=== PATIENT | male | born 1955 | race Caucasian/White ===

== ENCOUNTER 2017-01-09 11:15 | Outpatient (CLI) | payer MEDICAID | END 2017-01-09 11:16 | disposition home or self-care (01) | DX: R53.83 Other fatigue (principal); R32 Unspecified urinary incontinence; R33.9 Retention of urine, unspecified ==

== ENCOUNTER 2017-01-09 14:40 | Outpatient (CLI) | payer MEDICAID | END 2017-01-09 14:41 | disposition home or self-care (01) | DX: R53.83 Other fatigue (principal); G35 Multiple sclerosis; R32 Unspecified urinary incontinence; R33.9 Retention of urine, unspecified ==

== ENCOUNTER 2017-01-30 11:23 | Outpatient (CLI) | payer MEDICAID | END 2017-01-30 11:24 | disposition short-term general hospital (02) | DX: R50.9 Fever, unspecified (principal); R53.1 Weakness; R53.83 Other fatigue; R07.1 Chest pain on breathing | CPT/HCPCS: A0425; A0429 ==

== ENCOUNTER 2017-03-08 14:03 | Outpatient (CLI) | payer MEDICAID ==
--- NOTE | 2017-03-08 17:36 | Ultrasound Report ---
EXAM: RENAL ULTRASOUND EXAM DATE: 03/08/2017 03:34 PM. CLINICAL HISTORY: Urinary retention. COMPARISON: None. TECHNIQUE: Real-time scanning was performed with static images obtained. FINDINGS: Right Kidney: 12.7 x 5.1 x 5.3 cm. Normal echotexture with no stones, contour-deforming masses, or hy dronephrosis. 1 x 0.9 x 0.9 cm simple right upper renal cyst. Left Kidney: 12.7 x 6.0 x 5.4 cm. Normal echotexture with no stones, contour-deforming masses, or hyd ronephrosis. Lobular contour. Bladder: Ureter jets are not seen. The prevoid bladder volume was 303.2 cc. The postvoid bladder volu me was 59 cc. Dowd catheter is present in the bladder. Liver: Incompletely imaged. Echogenic parenchyma. IMPRESSION: 1. 1 cm simple right upper pole renal cyst. No renal mass, stones or hydronephrosis. 2. Dowd catheter in the bladder. Normal bladder. [facility] Referring Provider Line: [phone] SITE ID: [id number]
== END 2017-03-08 14:04 | disposition home or self-care (01) ==
LOC: DI 14:03
PROVIDERS: ATTEND Nurse Practitioner Family
DX: R33.9 Retention of urine, unspecified (principal); N28.1 Cyst of kidney, acquired
CPT/HCPCS: 76770

== ENCOUNTER 2017-10-11 05:02 | Outpatient (CLI) | payer MEDICAID | END 2017-10-11 05:03 | disposition critical access hospital (66) | LOC: EMS 05:02 | PROVIDERS: ATTEND Surgery | DX: R50.9 Fever, unspecified (principal); R53.1 Weakness; R41.0 Disorientation, unspecified | CPT/HCPCS: A0425; A0429 ==

== ENCOUNTER 2017-10-11 05:21 | Inpatient (IN) | payer MEDICAID ==
[2017-10-11] MEDS ORDERED: SODIUM CHLORIDE 0.9% 1,000 ML IV ONE ×2 (05:24→06:37)
--- NOTE | 2017-10-11 05:30 | ED Physician Documentation ---
PD HPI ALTERED MENTAL STATUS - Stated complaint Stated Complaint: ALOC - Chief complaint Chief Complaint: Neuro - History obtained from History obtained from: Patient, EMS - History of Present Illness Timing - onset: Today Timing - details: Gradual onset, Still present Quality / character: Less responsive, Disoriented Associated symptoms: Fever Basline status: Alert and oriented X 3, Ambulatory, Independent Similar symptoms before: Work up / diagnostics, Treatment Recently seen: Not recently seen - Additional information Additional information: patient is a 62 year old male with a history of ms, and multiple episodes of sepsis who is presenting to the emergency department for altered mental status. According to family and ems, early this morning patient was confused and couldn't walk to the bathroom. patient's was worried so she called ems. When ems arrived patient was febrile and tachycardic. Fluids were started and patient was brought to the hospital. Upon initial evaluation in the emergency department patient was tachycardic, somnolent but would open his eye to voice. Review of Systems Constitutional: reports: Fever, Chills Eyes: denies: Decreased vision Nose: denies: Congestion Throat: denies: Sore throat Cardiac: denies: Chest pain / pressure, Palpitations Respiratory: denies: Cough, Wheezing GI: denies: Nausea, Vomiting : reports: Hesitancy, Unable to Void Neurologic: reports: Generalized weakness, Confused, Altered mental status. denies: Focal weakness, Numbness Immunocompromised: denies: Immunocompromised PD PAST MEDICAL HISTORY - Past Medical History Past Medical History: Yes Cardiovascular: None Respiratory: None Neuro: Multiple sclerosis, Other Endocrine/Autoimmune: None GI: Ulcers : Incontinence HEENT: None Psych: None Musculoskeletal: None Derm: None Other Past Medical History: WHEELCHAIR bound per spouse...CAN TRANSFER HIMSELF.... - Past Surgical History Past Surgical History: Yes General: Other Ortho: Knee replacement, Shoulder arthroplasty - Present Medications Home Medications: Ambulatory Orders Medication Instructions Recorded Confirmed Gabapentin 600 mg PO TID 09/01/15 10/11/17 carBAMazepine [TEGretol] 1 tab PO BID PRN 02/09/16 10/11/17 Cyclobenzaprine HCl 1 mg PO TID 10/11/17 10/11/17 Tamsulosin HCl [Flomax] 1 mg PO DAILY 10/11/17 10/11/17 - Allergies Allergies/Adverse Reactions: Allergies Allergy/AdvReac Type Severity Reaction Status Date / Time No Known Drug Allergies Allergy Verified 10/11/17 05:27 - Social History Does the pt smoke?: No Smoking Status: Never smoker Does the pt drink ETOH?: Yes Does the pt have substance abuse?: No - Immunizations Immunizations are current?: Yes - POLST Patient has POLST: No PD ED PE NORMAL - General General: Well developed/nourished - HEENT HEENT: Atraumatic, PERRL - Neck Neck: Supple, no meningeal sign - Cardiac Cardiac: RRR, No murmur - Respiratory Respiratory: No respiratory distress - Abdomen Abdomen: Soft, Non tender, Non distended - Derm Derm: Normal color, Warm and dry, No rash - Extremities Extremities: No deformity, Normal ROM s pain, No calf tenderness / cord - Neuro Neuro: Alert and oriented X 3, No motor deficit, No sensory deficit, Normal speech Eye Opening: Spontaneous Motor: Obeys Commands Verbal: Oriented GCS Score: 15 - Psych Psych: Normal mood PD ED PE EXPANDED - General General: Other (altered) - HEENT HEENT: Dry mucous membranes - Cardiac Cardiac: Tachy - GCS Eye Opening: To Voice Motor: Obeys Commands Verbal: Confused Total: 13 Results - Vitals Vitals: Vital Signs - 24 hr 10/11/17 10/11/17 10/11/17 05:24 05:32 05:48 Temperature 37.1 C Heart Rate 117 H 117 H 111 H Respiratory 20 19 20 Rate Blood Pressure 107/84 H 115/75 111/72 O2 Saturation 97 95 97 10/11/17 10/11/17 10/11/17 06:13 06:33 06:53 Temperature Heart Rate 93 98 112 H Respiratory 15 20 18 Rate Blood Pressure 101/74 110/83 H 136/78 H O2 Saturation 96 96 94 Oxygen O2 Source Room air - Labs Labs: Laboratory Tests 10/11/17 10/11/17 10/11/17 05:25 05:25 05:55 WBC 15.8 H RBC 4.76 Hgb 14.1 Hct 41.6 L MCV 87.4 MCH 29.7 MCHC 34.0 RDW 12.7 Plt Count 267 MPV 7.0 L Neut # 12.3 H Lymph # 2.5 [place] # 0.8 Eos # 0.1 Baso # 0.1 Absolute Nucleated RBC 0.00 Nucleated RBC % 0.0 Sodium 136 Potassium 3.7 Chloride 104 Carbon Dioxide 23 Anion Gap 9.0 BUN 14 Creatinine 0.8 Estimated GFR (MDRD) 98 Glucose 147 H Lactic Acid Calcium 9.0 Total Bilirubin 0.5 AST 31 ALT 60 Alkaline Phosphatase 111 Total Protein 7.0 Albumin 3.9 Globulin 3.1 Albumin/Globulin Ratio 1.3 Lipase 19 L Urine Color Urine Clarity Urine pH Ur Specific [place] Urine Protein Urine Glucose (UA) Urine Ketones Urine Occult Blood Urine Nitrite Urine Bilirubin Urine Urobilinogen Ur Leukocyte Esterase Urine RBC Urine WBC Ur Squamous Epith Cells Urine Bacteria Ur Microscopic Review Urine Culture Comments Influenza A (Rapid) Negative Influenza B (Rapid) Negative Influenza Types A,B Ag - 10/11/17 10/11/17 06:00 06:10 WBC RBC Hgb Hct MCV MCH MCHC RDW Plt Count MPV Neut # Lymph # [place] # Eos # Baso # Absolute Nucleated RBC Nucleated RBC % Sodium Potassium Chloride Carbon Dioxide Anion Gap BUN Creatinine Estimated GFR (MDRD) Glucose Lactic Acid 1.3 Calcium Total Bilirubin AST ALT Alkaline Phosphatase Total Protein Albumin Globulin Albumin/Globulin Ratio Lipase Urine Color YELLOW Urine Clarity CLEAR Urine pH 6.0 Ur Specific [place] 1.020 Urine Protein NEGATIVE Urine Glucose (UA) 250 H Urine Ketones NEGATIVE Urine Occult Blood TRACE-INTA Urine Nitrite POSITIVE H Urine Bilirubin NEGATIVE Urine Urobilinogen 0.2 (NORMAL) Ur Leukocyte Esterase SMALL H Urine RBC 0-5 Urine WBC 11-25 H Ur Squamous Epith Cells FEW Squamous Urine Bacteria Moderate H Ur Microscopic Review INDICATED Urine Culture Comments INDICATED Influenza A (Rapid) Influenza B (Rapid) Influenza Types A,B Ag PD MEDICAL DECISION MAKING - ED course Complexity details: reviewed old records, reviewed results, re-evaluated patient , considered differential, d/w patient, d/w family ED course: patient was seen and examined at bedside. IV access was gained and labs were drawn. IV fluids were started. When patient's diagnostics came back he was found to have a leukocystos and a urinary tract infection along with his tachycardia, borderline hypotension and altered mental status. it was decided to admit the patient. The case was discussed with the hospitalist and patient was admitted for further evaluation and care. Departure - Departure Disposition: 66 [facility] DC/Xfer Clinical Impression: SIRS (systemic inflammatory response syndrome), UTI (urinary tract infection) Condition: Stable
[2017-10-11 05:55] LABS: BASOPHILS # (AUTO) 0.1 10^3/uL (0.0-0.1); BASOPHILS % (AUTO) 0.4 %; EOSINOPHILS # (AUTO) 0.1 10^3/uL (0.0-0.7); EOSINOPHILS % (AUTO) 0.6 %; HGB - HEMOGLOBIN 14.1 g/dL (14.0-18.0); LYMPHOCYTES # (AUTO) 2.5 10^3/uL (1.5-3.5); MEAN CORPUSCULAR HEMOGLOBIN 29.7 pg (27.0-31.0); MEAN CORPUSCULAR VOLUME 87.4 fL (80.0-94.0); MONOCYTES # (AUTO) 0.8 10^3/uL (0.0-1.0); NEUTROPHILS # (AUTO) 12.3 10^3/uL (1.5-6.6); PLT - PLATELET COUNT 267 10^3/uL (130-450); RED BLOOD COUNT 4.76 10^6/uL (4.70-6.10); RED CELL DISTRIBUTION WIDTH 12.7 % (12.0-15.0); WHITE BLOOD COUNT 15.8 x10^3/uL (4.8-10.8)
--- NOTE | 2017-10-11 06:03 | XRAY Preliminary Report ---
Exam: XR CHEST 1 VIEW X-RAY IMPRESSION: Stable negative single view chest. [facility] SITE ID: [id number]
--- NOTE | 2017-10-11 06:09 | XRAY Report ---
EXAM: CHEST RADIOGRAPHY EXAM DATE: 10/11/2017 05:49 AM. CLINICAL HISTORY: Fevers, altered mental status. COMPARISON: 05/17/2016. TECHNIQUE: 1 view. FINDINGS: Lungs/Pleura: No focal opacities evident. No pleural effusion. No pneumothorax. Mediastinum: Within exam limitations, the cardiomediastinal contour is normal. Other: None. IMPRESSION: Stable negative single view chest. [facility] Referring Provider Line: [phone] SITE ID: [id number]
[2017-10-11 06:14] LABS: ALBUMIN 3.9 g/dL (3.2-5.5); ALBUMIN/GLOBULIN RATIO 1.3 (1.0-2.2); BILIRUBIN,TOTAL 0.5 mg/dL (0.2-1.0); CREATININE 0.8 mg/dL (0.6-1.2)
[2017-10-11 06:19] LABS: BILIRUBIN,URINE NEGATIVE (NEGATIVE); GLUCOSE, URINE (UA) 250 mg/dL (NEGATIVE); KETONES,URINE (UA) NEGATIVE (NEGATIVE); LEUKOCYTE ESTERASE, URINE SMALL (NEGATIVE); NITRITE,URINE POSITIVE (NEGATIVE); OCCULT BLOOD,URINE TRACE-INTA (NEGATIVE); PROTEIN,URINE NEGATIVE (NEGATIVE); UROBILINOGEN,URINE 0.2 (NORMAL) E.U./dL (NORMAL)
[2017-10-11 06:22] LABS: CLARITY,URINE CLEAR (CLEAR)
[2017-10-11] MEDS ORDERED: levoFLOXacin 750 MG/150 ML 750 MG/150 ML BAG IV ONE (06:26)
[2017-10-11 06:30] LABS: BACTERIA,URINE Moderate /HPF (None Seen); RBC,URINE 0-5 /HPF (0-5); SQUAMOUS EPITHELIAL CELL,UR FEW Squamous (<= Few)
[2017-10-11] MEDS ORDERED: PROCHLORPERAZINE 10 MG/2 ML VIAL IVP PRN (07:52)
[2017-10-11] MEDS ORDERED: carBAMazepine 200 MG TABLET PO PRN (07:52)
[2017-10-11] MEDS ORDERED: PROMETHAZINE 25 MG/1 ML VIAL IM PRN (07:52)
[2017-10-11] MEDS ORDERED: ZOLPIDEM 5 MG TABLET PO PRN (07:52)
[2017-10-11] MEDS ORDERED: ACETAMINOPHEN 325 MG TABLET PO PRN (07:52)
[2017-10-11] MEDS ORDERED: oxyCODONE 5 MG TABLET PO PRN ×2 (07:52)
[2017-10-11] MEDS ORDERED: ONDANSETRON 4 MG/2 ML VIAL IVP PRN (07:52)
[2017-10-11] MEDS ORDERED: SODIUM CHLORIDE FLUSH 0.9% 10 ML SYRINGE IVP PRN (07:52)
[2017-10-11] MEDS: CEFEPIME 2 GM in SODIUM CHLORIDE 0.9% MINIBAG 100 ML IV SCH ×2 (10:10→21:04)
[2017-10-11] MEDS: POLYETHYLENE GLYCOL 3350 17 GM PACKET PO SCH (10:10)
[2017-10-11] MEDS: ENOXAPARIN 40 MG/0.4 ML SYRINGE SUBQ SCH (10:10)
[2017-10-11] MEDS: TAMSULOSIN 0.4 MG CAPSULE PO SCH ×2 (10:11→16:21)
[2017-10-11] MEDS: SODIUM CHLORIDE 0.9% 1,000 ML IV SCH ×2 (10:11→21:04)
[2017-10-11] MEDS: CYCLOBENZAPRINE 10 MG TABLET PO PRN (10:54)
[2017-10-11] MEDS: SODIUM CHLORIDE FLUSH 0.9% 10 ML SYRINGE IVP SCH ×2 (13:46→21:04)
[2017-10-11] MEDS ORDERED: GABAPENTIN 300 MG CAPSULE PO SCH (14:00)
[2017-10-11] MEDS: GABAPENTIN 300 MG CAPSULE PO SCH ×2 (15:53→21:03)
[2017-10-11] MEDS: SACCHAROMYCES BOULARDII 250 MG CAPSULE PO SCH (16:51)
--- NOTE | 2017-10-11 16:52 | HISTORY & PHYSICAL EXAMINATION ---
Chief Complaint - Chief Complaint Chief Complaint: Altered mental status History of Present Illness - Admitted From Admitted From:: Emergency department - History Obtained From Records Reviewed: Yes History obtained from: Patient and patient's Exam Limitations: Patient has MS and has significant weakness and difficulty with exam - History of Present Illness HPI Comment/Other: Patient is a 62-year-old gentleman with unfortunate past medical history of demyelinating disorder secondary to multiple sclerosis, trigeminal neuralgia, history of duodenal ulcer and history of recurrent UTIs with sepsis who presented to the emergency department with a chief complaint of altered mental status. The patient states that he was in his normal state of health until this morning when he does not remember events very well but his was kind enough to fill in. The patient's states that the patient had gotten up to go to the commode. The patient is typically wheelchair bound and able to transfer from wheelchair to commode and wheelchair to bed with minimal assistance. This morning the states that the patient could not transfer to the toilet as he was so weak. She also noted that he was becoming confused and was not making sense. Given her experience she figured that the patient was getting ill and may be infected. She then called 911. On arrival of EMS the patient was found to be febrile and tachycardic, he was quite somnolent but would open his eyes to voice. Patient denies any headaches, blurred vision, runny nose, sore throat, nasal congestion, difficulty swallowing, neck pain, chest pain, shortness of air, orthopnea, PND, increased lower extremity swelling, abdominal pain, nausea, vomiting, diarrhea, constipation, dysuria, increased urinary urgency, increased urinary frequency, joint pain, muscle aches, joint swelling, back pain, neck stiffness, any new focal neurologic deficits, recent unintentional weight loss or changes in his appetite. On presentation to the emergency department the patient was afebrile however he was tachycardic with heart rate of 117 and blood pressure was borderline low with systolic blood pressure of 107. The patient otherwise does not appear to be in any respiratory distress. The patient however was quite somnolent on presentation. He was arousable and did respond to voice. The patient's lab work revealed a leukocytosis of 15.8 and a slight hyperglycemia with a glucose of 147. The patient's urine analysis revealed positive nitrates, positive leukocyte esterase with 11-25 WBCs and moderate bacteria. The patient appear to be in early sepsis likely secondary to a urinary tract infection. The patient was given 2 L of IV fluid and IV Levaquin in the emergency department. The patient was admitted to the medical [facility] with sepsis secondary to urinary tract infection. History - Past Medical History Cardiovascular: reports: None Respiratory: reports: None Neuro: reports: Peripheral neuropathy, Multiple sclerosis, Other (Trigeminal neuralgia) Endocrine/Autoimmune: reports: None GI: reports: Ulcers : reports: Incontinence HEENT: reports: None Psych: reports: None Musculoskeletal: reports: None Derm: reports: None MRSA Hx?: No Other Past Medical History: WHEELCHAIR bound per spouse...CAN TRANSFER HIMSELF.... chronic lyme disease, dormant wallace-miranda virus - Past Surgical History General: reports: Other Ortho: reports: Shoulder arthroplasty, Other - Family & Social History Family History Comment/Other: The patient's father had BPH. Mother had congestive heart failure. Patient's brother had coronary artery disease. There is no family history of diabetes cancer or MS. Living arrangement: At home Living Situation: With spouse/s.o. Social History Notes: The patient currently lives in [place] with his . He has been to her for 26 years. They also live with the patient's [id number]. The patient has a 31-year-old daughter from a previous marriage who lives in [place]. The patient and his moved would [facility] about 2-1/ 2 years ago from [place], [place]. The moved here because the patient's condition was getting worse and the patient's [id number] was alone after her and would be able to help out with the care of the patient. At baseline the patient is able to transfer from wheelchair to commode and wheelchair to bed but is primarily wheelchair bound. The patient has never smoked, he rarely drinks alcohol and denies any illicit drug use. - POLST Patient has POLST: No POLST Status: Full Code Meds/Allgy - Home Medications Home Medications: Ambulatory Orders Medication Instructions Recorded Confirmed carBAMazepine [TEGretol] 200 mg PO BID PRN 02/09/16 10/11/17 Cyclobenzaprine HCl 10 mg PO TID PRN 10/11/17 10/11/17 Gabapentin [Gabapentin] 600 mg PO TID 10/11/17 10/11/17 Tamsulosin HCl [Flomax] 0.8 mg PO DAILY 10/11/17 10/11/17 - Allergies Allergies/Adverse Reactions: Allergies Allergy/AdvReac Type Severity Reaction Status Date / Time No Known Drug Allergies Allergy Verified 10/11/17 05:27 Review of Systems - Other Findings Other Findings: A comprehensive review of systems was performed the pertinent positives and negatives are stated above in the HPI and the remainder of the review of systems is negative. Exam - Vital Signs Vital Signs: Vital Signs x48h Temp Pulse Resp BP BP Pulse Ox 10/11/17 15:38 36.8 C 109 H 17 159/81 H 96 10/11/17 13:49 37.2 C 10/11/17 08:45 36.8 C 103 H 20 143/90 H 94 - Physical Exam General Appearance: positive: No acute distress, Alert, Other (Patient was lethargic on presentation to the ER but is improved and more alert and awake) Eyes Bilateral: positive: Normal inspection, PERRL, EOMI, No lid inflammation, Conjunctivae nml, No scleral icterus ENT: positive: ENT inspection nml, Pharynx nml, Dry mucous membranes. negative : Purulent nasal drainage, Pharyngeal erythema, Oral lesions Neck: positive: Nml inspection, Thyroid nml, No JVD, Trachea midline. negative : Thyromegaly, Lymphadenopathy (R), Lymphadenopathy (L), Carotid bruit, Tracheal deviation Respiratory: positive: Chest non-tender, No respiratory distress, Breath sounds nml. negative: Wheezes, Rales, Rhonchi Cardiovascular: positive: Regular rate & rhythm, No murmur, No gallop Peripheral Pulses: positive: 2+ Abdomen: positive: No organomegaly, Nml bowel sounds, No distention, Tenderness (Suprapubic), Other (Dowd catheter in place). negative: Guarding, Rebound, Hepatomegaly Back: positive: Nml inspection. negative: CVA tenderness (R), CVA tenderness (L ) Skin: positive: Color nml, No rash, Warm. negative: Cyanosis, Pallor Extremities: positive: Non-tender, Full ROM, Nml appearance, No pedal edema Neurologic/Psychiatric: positive: Oriented x3, CN's nml (2-12), Sensation nml, Mood/affect nml, Weakness (Patient has generalized weakness and significant left -sided weakness compared to the right.) Conclusion/Plan - Problem List (1) Sepsis Conclusion/Plan: The patient presented with altered mental status, lethargy, leukocytosis of 15.8 , tachycardia and had fever at home. The patient was found to have positive UA and likely has sepsis secondary to UTI. The patient's mental status was significantly improved with IV fluids and antibiotics in the emergency department but he still needed hospitalization for treatment of sepsis and UTI. Plan: Patient will be placed on IV cefepime secondary to previous cultures growing Pseudomonas Follow-up urine and blood cultures IV fluids Dowd catheter inserted given patient's incontinence Monitor closely (2) UTI (urinary tract infection) Conclusion/Plan: Patient has positive UA with leukocytosis and altered mental status. Patient appeared septic on presentation. The patient has suprapubic tenderness. Patient does not have any CVA tenderness. Plan: Patient be placed on IV cefepime after review of previous microbiology We will await urine culture and blood cultures to de-escalate antibiotics IV fluids Patient had Dowd catheter placed secondary to urinary incontinence (3) Hyperglycemia Conclusion/Plan: Patient has hyperglycemia on presentation with a blood glucose of 147. This could be from sepsis and acute infection. Patient does not have history of diabetes We will check hemoglobin A1c and monitor glucose closely (4) Trigeminal neuralgia Conclusion/Plan: Patient has history of trigeminal neuralgia and is on carbamazepine at home. He is also on gabapentin and cyclobenzaprine. We will continue patient's home medications. (5) Prophylactic use of low molecular weight heparin for venous thromboembolism Conclusion/Plan: Patient be placed on Lovenox for DVT prophylaxis - Lab Results Lab results reviewed: Yes Fish Bones: 10/11/17 05:25 10/11/17 05:25 Other Lab Results: Laboratory Results WBC 15.8 x10^3/uL (4.8-10.8) H 10/11/17 05:25 RBC 4.76 10^6/uL (4.70-6.10) 10/11/17 05:25 Hgb 14.1 g/dL (14.0-18.0) 10/11/17 05:25 Hct 41.6 % (42.0-52.0) L 10/11/17 05:25 MCV 87.4 fL (80.0-94.0) 10/11/17 05:25 MCH 29.7 pg (27.0-31.0) 10/11/17 05:25 MCHC 34.0 g/dL (32.0-36.0) 10/11/17 05:25 RDW 12.7 % (12.0-15.0) 10/11/17 05:25 Plt Count 267 10^3/uL (130-450) 10/11/17 05:25 MPV 7.0 fL (7.4-11.4) L 10/11/17 05:25 Neut # 12.3 10^3/uL (1.5-6.6) H 10/11/17 05:25 Lymph # 2.5 10^3/uL (1.5-3.5) 10/11/17 05:25 [place] # 0.8 10^3/uL (0.0-1.0) 10/11/17 05:25 Eos # 0.1 10^3/uL (0.0-0.7) 10/11/17 05:25 Baso # 0.1 10^3/uL (0.0-0.1) 10/11/17 05:25 Absolute Nucleated RBC 0.00 x10^3/uL 10/11/17 05:25 Nucleated RBC % 0.0 /100WBC 10/11/17 05:25 Sodium 136 mmol/L (135-145) 10/11/17 05:25 Potassium 3.7 mmol/L (3.5-5.0) 10/11/17 05:25 Chloride 104 mmol/L (101-111) 10/11/17 05:25 Carbon Dioxide 23 mmol/L (21-32) 10/11/17 05:25 Anion Gap 9.0 (6-13) 10/11/17 05:25 BUN 14 mg/dL (6-20) 10/11/17 05:25 Creatinine 0.8 mg/dL (0.6-1.2) 10/11/17 05:25 Estimated GFR (MDRD) 98 (>89) 10/11/17 05:25 Glucose 147 mg/dL (70-100) H 10/11/17 05:25 Lactic Acid 1.3 mmol/L (0.5-2.2) 10/11/17 06:10 Calcium 9.0 mg/dL (8.5-10.3) 10/11/17 05:25 Total Bilirubin 0.5 mg/dL (0.2-1.0) 10/11/17 05:25 AST 31 IU/L (10-42) 10/11/17 05:25 ALT 60 IU/L (10-60) 10/11/17 05:25 Alkaline Phosphatase 111 IU/L (42-121) 10/11/17 05:25 Total Protein 7.0 g/dL (6.7-8.2) 10/11/17 05:25 Albumin 3.9 g/dL (3.2-5.5) 10/11/17 05:25 Globulin 3.1 g/dL (2.1-4.2) 10/11/17 05:25 Albumin/Globulin Ratio 1.3 (1.0-2.2) 10/11/17 05:25 Lipase 19 U/L (22-51) L 10/11/17 05:25 Urine Color YELLOW 10/11/17 06:00 Urine Clarity CLEAR (CLEAR) 10/11/17 06:00 Urine pH 6.0 PH (5.0-7.5) 10/11/17 06:00 Ur Specific [place] 1.020 (1.002-1.030) 10/11/17 06:00 Urine Protein NEGATIVE mg/dL (NEGATIVE) 10/11/17 06:00 Urine Glucose (UA) 250 mg/dL (NEGATIVE) H 10/11/17 06:00 Urine Ketones NEGATIVE mg/dL (NEGATIVE) 10/11/17 06:00 Urine Occult Blood TRACE-INTA (NEGATIVE) 10/11/17 06:00 Urine Nitrite POSITIVE (NEGATIVE) H 10/11/17 06:00 Urine Bilirubin NEGATIVE (NEGATIVE) 10/11/17 06:00 Urine Urobilinogen 0.2 (NORMAL) E.U./dL (NORMAL) 10/11/17 06:00 Ur Leukocyte Esterase SMALL (NEGATIVE) H 10/11/17 06:00 Urine RBC 0-5 /HPF (0-5) 10/11/17 06:00 Urine WBC 11-25 /HPF (0-3) H 10/11/17 06:00 Ur Squamous Epith Cells FEW Squamous (<= Few) 10/11/17 06:00 Urine Bacteria Moderate /HPF (None Seen) H 10/11/17 06:00 Ur Microscopic Review INDICATED 10/11/17 06:00 Urine Culture Comments INDICATED 10/11/17 06:00 Influenza A (Rapid) Negative (Negative) 10/11/17 05:55 Influenza B (Rapid) Negative (Negative) 10/11/17 05:55 Influenza Types A,B Ag - 10/11/17 05:55 - Diagnostic Imaging Results Diagnostic Imaging Results: positive: Final report reviewed Diagnostic Imaging Results Comments: Chest x-ray Impression: Stable negative single view chest Core Measures - Anticipated LOS I expect patient to be DC'd or transferred within 96 hours.: Yes - DVT/VTE - Prophylaxis VTE/DVT Prophylaxis med ordered at admit?: Yes
[2017-10-12] MEDS: GABAPENTIN 300 MG CAPSULE PO SCH ×4 (03:40→22:07)
[2017-10-12] MEDS: CYCLOBENZAPRINE 10 MG TABLET PO PRN (03:40)
[2017-10-12] MEDS: SODIUM CHLORIDE 0.9% 1,000 ML IV SCH ×3 (06:10→19:09)
[2017-10-12] MEDS: PANTOPRAZOLE 40 MG TABLET PO SCH (06:11)
[2017-10-12] MEDS: SODIUM CHLORIDE FLUSH 0.9% 10 ML SYRINGE IVP SCH ×3 (06:11→22:09)
[2017-10-12 06:52] LABS: BASOPHILS # (AUTO) 0.1 10^3/uL (0.0-0.1); BASOPHILS % (AUTO) 0.5 %; EOSINOPHILS # (AUTO) 0.2 10^3/uL (0.0-0.7); EOSINOPHILS % (AUTO) 1.3 %; LYMPHOCYTES # (AUTO) 2.2 10^3/uL (1.5-3.5); LYMPHOCYTES % (AUTO) 18.7 %; MEAN CORPUSCULAR HEMOGLOBIN 29.8 pg (27.0-31.0); MEAN CORPUSCULAR HGB CONC 33.8 g/dL (32.0-36.0); MEAN CORPUSCULAR VOLUME 88.1 fL (80.0-94.0); MEAN PLATELET VOLUME 6.9 fL (7.4-11.4); MONOCYTES # (AUTO) 0.7 10^3/uL (0.0-1.0); MONOCYTES % (AUTO) 5.8 %; NEUTROPHILS # (AUTO) 8.6 10^3/uL (1.5-6.6); NEUTROPHILS % (AUTO) 73.7 %; PLT - PLATELET COUNT 234 10^3/uL (130-450); RED BLOOD COUNT 4.71 10^6/uL (4.70-6.10); RED CELL DISTRIBUTION WIDTH 12.7 % (12.0-15.0); WHITE BLOOD COUNT 11.6 x10^3/uL (4.8-10.8)
[2017-10-12 07:06] LABS: ALBUMIN 3.6 g/dL (3.2-5.5); ALBUMIN/GLOBULIN RATIO 1.2 (1.0-2.2); BILIRUBIN,TOTAL 0.6 mg/dL (0.2-1.0); CALCIUM 8.5 mg/dL (8.5-10.3); CREATININE 0.7 mg/dL (0.6-1.2); TOTAL PROTEIN 6.5 g/dL (6.7-8.2)
[2017-10-12 07:25] LABS: HB2 TOTAL 15.3 g/dL; HEMOGLOBIN A1C 0.77 g/dL; HEMOGLOBIN A1C % 6.8 % (4.6-6.2)
[2017-10-12] MEDS: SACCHAROMYCES BOULARDII 250 MG CAPSULE PO SCH ×2 (08:37→17:33)
[2017-10-12] MEDS: CEFEPIME 2 GM in SODIUM CHLORIDE 0.9% MINIBAG 100 ML IV SCH ×2 (08:37→22:08)
[2017-10-12] MEDS: POLYETHYLENE GLYCOL 3350 17 GM PACKET PO SCH (08:37)
[2017-10-12] MEDS: ENOXAPARIN 40 MG/0.4 ML SYRINGE SUBQ SCH (08:37)
--- NOTE | 2017-10-12 16:54 | PROVIDER PROGRESS NOTE ---
Assessment/Plan - Problem List (1) Sepsis Assessment/Plan: The patient presented with altered mental status, lethargy, leukocytosis of 15.8 , tachycardia and had fever at home. The patient was found to have positive UA and likely has sepsis secondary to UTI. The patient's mental status was significantly improved with IV fluids and antibiotics in the emergency department but he still needed hospitalization for treatment of sepsis and UTI. IV cefepime day 2 Patient is improved Mental status back to baseline and WBC improved Temp up to 37.7 last night and still tachycardic Patient still very weak Will order PT Continue IVfs and abx Awaiting blood and urine cx (2) UTI (urinary tract infection) Conclusion/Plan: Patient has positive UA with leukocytosis and altered mental status. Patient appeared septic on presentation. The patient has suprapubic tenderness. Patient does not have any CVA tenderness. Plan: Cefepime day 2 Improving COntinue valerio while hospitalized Awaiting urine cx (3) Hyperglycemia Conclusion/Plan: Patient has hyperglycemia on presentation with a blood glucose of 147. This could be from sepsis and acute infection. Patient does not have history of diabetes HbA1C elevated at 6.8 BG controlled at 132 today Will hold off on starting insulin Patient needs outpatient follow up (4) Trigeminal neuralgia Conclusion/Plan: Patient has history of trigeminal neuralgia and is on carbamazepine at home. He is also on gabapentin and cyclobenzaprine. Stable (5) Prophylactic use of low molecular weight heparin for venous thromboembolism Conclusion/Plan: Patient be placed on Lovenox for DVT prophylaxis (6) Constipation Conclusion/Plan: patient has been constipated for 4 days Continue bowel regimen Will consider abdominal xray if it continues - Current Meds Current Meds: Current Medications Generic Name Dose Route Start Last Admin Trade Name Freq PRN Reason Stop Dose Admin Cyclobenzaprine HCl 10 mg 10/11/17 11:00 10/12/17 03:40 Flexeril PO 10 mg TID PRN Administration SPASMS Enoxaparin Sodium 40 mg 10/11/17 09:00 10/12/17 08:37 Lovenox SUBQ 40 mg DAILY GAGAN Administration Gabapentin 600 mg 10/11/17 16:00 10/12/17 14:09 Neurontin PO Not Given 0300,1100,2100 GAGAN Cefepime HCl 2 gm/ Sodium 100 mls @ 200 mls/hr 10/11/17 09:00 10/12/17 14:09 Chloride IV Infused BID GAGAN Infusion Sodium Chloride 1,000 mls @ 100 mls/hr 10/11/17 08:00 10/12/17 11:00 Normal Saline 0.9% IV 100 mls/hr .Q10H GAGAN Administration Pantoprazole Sodium 40 mg 10/12/17 07:00 10/12/17 06:11 Protonix PO 40 mg QDAC GAGAN Administration Polyethylene Glycol 17 gm 10/11/17 09:00 10/12/17 08:37 Miralax PO 17 gm DAILY GAGAN Administration Saccharomyces Boulardii 250 mg 10/11/17 17:00 10/12/17 08:37 Florastor PO 250 mg BIDWM GAGAN Administration Sodium Chloride 10 ml 10/11/17 14:00 10/12/17 14:09 Normal Saline Flush 0.9% IVP Not Given Q8HR GAGAN Tamsulosin HCl 0.4 mg 10/11/17 09:00 10/11/17 16:21 Flomax PO Not Given 1700 GAGAN - Lab Result Lab results reviewed: Yes Fish Bone Diagrams: 10/12/17 06:30 10/12/17 06:30 - Diagnostic Imaging Results Diagnostic Imaging Results: Final report reviewed - Additional Planning Condition/Complexity: Guarded My Orders: My Active Orders 10/11/17 16:00 Gabapentin [Neurontin] 600 mg PO 0300,1100,2100 10/12/17 Evaluate and Treat PT [PT] Routine Consult/Specialty: PT Plan Discussed with:: Patient Time Spent: 31-60 minutes Subjective - Subjective Patient Reports: Abdominal Pain (Worsening abdominal pain with constipation), Constipation (For 4 days), Other (No nausea, vomiting or fever. Feels very weak) Nursing Reports: Constipation Objective Vital Signs: Vital Signs - 24 hr 10/12/17 10/12/17 10/12/17 00:23 03:37 07:55 Temperature 37.7 C H 37.4 C 36.4 C L Heart Rate [ 109 H 105 H Brachial] Respiratory 20 16 Rate Blood Pressure 146/82 H 147/87 H [Right Brachial artery] O2 Saturation 92 92 10/12/17 15:32 Temperature 37.4 C Heart Rate [ 100 Brachial] Respiratory 17 Rate Blood Pressure 145/74 H [Right Brachial artery] O2 Saturation 94 Oxygen O2 Source Room air I&O (Last 24 Hrs): Intake and Output Totals x24h 10/10/17 10/11/17 10/12/17 23:59 23:59 23:59 Intake Total 3480 1870.000 Output Total 3025 3100 Balance 455 -1230.000 General: Alert, Oriented x3, Cooperative, Mild distress (Abdominal discomfort) HEENT: Atraumatic, PERRLA, EOMI, Other (Dry mucus membranes) Neck: Supple, No JVD, No thyromegaly, +2 carotid pulse wo bruit, No LAD Lymphatic: no adenopathy Neuro: Alert, Non Focal, CN 2-12 Grossly Intact, Oriented Times 3 Cardiovascular: Normal S1, Normal S2, No murmurs, Other (Tachycardic) Respiratory: Chest non-tender, No respiratory distress, Breath sounds nml Abdomen: Soft, Other (Lower abdominal tenderness) Extremities: No clubbing, No cyanosis, No edema, Normal pulses Skin: No rashes, No breakdown - Results Results: Laboratory Results WBC 11.6 x10^3/uL (4.8-10.8) H 10/12/17 06:30 RBC 4.71 10^6/uL (4.70-6.10) 10/12/17 06:30 Hgb 14.0 g/dL (14.0-18.0) 10/12/17 06:30 Hct 41.5 % (42.0-52.0) L 10/12/17 06:30 MCV 88.1 fL (80.0-94.0) 10/12/17 06:30 MCH 29.8 pg (27.0-31.0) 10/12/17 06:30 MCHC 33.8 g/dL (32.0-36.0) 10/12/17 06:30 RDW 12.7 % (12.0-15.0) 10/12/17 06:30 Plt Count 234 10^3/uL (130-450) 10/12/17 06:30 MPV 6.9 fL (7.4-11.4) L 10/12/17 06:30 Neut # 8.6 10^3/uL (1.5-6.6) H 10/12/17 06:30 Lymph # 2.2 10^3/uL (1.5-3.5) 10/12/17 06:30 [place] # 0.7 10^3/uL (0.0-1.0) 10/12/17 06:30 Eos # 0.2 10^3/uL (0.0-0.7) 10/12/17 06:30 Baso # 0.1 10^3/uL (0.0-0.1) 10/12/17 06:30 Absolute Nucleated RBC 0.00 x10^3/uL 10/12/17 06:30 Nucleated RBC % 0.0 /100WBC 10/12/17 06:30 Sodium 138 mmol/L (135-145) 10/12/17 06:30 Potassium 4.0 mmol/L (3.5-5.0) 10/12/17 06:30 Chloride 108 mmol/L (101-111) 10/12/17 06:30 Carbon Dioxide 25 mmol/L (21-32) 10/12/17 06:30 Anion Gap 5.0 (6-13) L 10/12/17 06:30 BUN 9 mg/dL (6-20) 10/12/17 06:30 Creatinine 0.7 mg/dL (0.6-1.2) 10/12/17 06:30 Estimated GFR (MDRD) 114 (>89) 10/12/17 06:30 Glucose 132 mg/dL (70-100) H 10/12/17 06:30 Glycated Hemoglobin 6.8 % (4.6-6.2) H 10/12/17 06:30 Estim Average Glucose 148 (70-100) H 10/12/17 06:30 Lactic Acid 1.3 mmol/L (0.5-2.2) 10/11/17 06:10 Calcium 8.5 mg/dL (8.5-10.3) 10/12/17 06:30 Total Bilirubin 0.6 mg/dL (0.2-1.0) 10/12/17 06:30 AST 22 IU/L (10-42) 10/12/17 06:30 ALT 48 IU/L (10-60) 10/12/17 06:30 Alkaline Phosphatase 92 IU/L (42-121) 10/12/17 06:30 Total Protein 6.5 g/dL (6.7-8.2) L 10/12/17 06:30 Albumin 3.6 g/dL (3.2-5.5) 10/12/17 06:30 Globulin 2.9 g/dL (2.1-4.2) 10/12/17 06:30 Albumin/Globulin Ratio 1.2 (1.0-2.2) 10/12/17 06:30 Lipase 19 U/L (22-51) L 10/11/17 05:25 Urine Color YELLOW 10/11/17 06:00 Urine Clarity CLEAR (CLEAR) 10/11/17 06:00 Urine pH 6.0 PH (5.0-7.5) 10/11/17 06:00 Ur Specific [place] 1.020 (1.002-1.030) 10/11/17 06:00 Urine Protein NEGATIVE mg/dL (NEGATIVE) 10/11/17 06:00 Urine Glucose (UA) 250 mg/dL (NEGATIVE) H 10/11/17 06:00 Urine Ketones NEGATIVE mg/dL (NEGATIVE) 10/11/17 06:00 Urine Occult Blood TRACE-INTA (NEGATIVE) 10/11/17 06:00 Urine Nitrite POSITIVE (NEGATIVE) H 10/11/17 06:00 Urine Bilirubin NEGATIVE (NEGATIVE) 10/11/17 06:00 Urine Urobilinogen 0.2 (NORMAL) E.U./dL (NORMAL) 10/11/17 06:00 Ur Leukocyte Esterase SMALL (NEGATIVE) H 10/11/17 06:00 Urine RBC 0-5 /HPF (0-5) 10/11/17 06:00 Urine WBC 11-25 /HPF (0-3) H 10/11/17 06:00 Ur Squamous Epith Cells FEW Squamous (<= Few) 10/11/17 06:00 Urine Bacteria Moderate /HPF (None Seen) H 10/11/17 06:00 Ur Microscopic Review INDICATED 10/11/17 06:00 Urine Culture Comments INDICATED 10/11/17 06:00 Influenza A (Rapid) Negative (Negative) 10/11/17 05:55 Influenza B (Rapid) Negative (Negative) 10/11/17 05:55 Influenza Types A,B Ag - 10/11/17 05:55 - Procedures Procedures: Procedures EXCISION OF STOMACH, ENDO, DIAGN (09/01/15) INSPECTION OF LOWER INTESTINAL TRACT, ENDO (09/01/15) INSPECTION OF UPPER INTESTINAL TRACT, ENDO (10/16/15) TRANSFUSE NONAUT RED BLOOD CELLS IN PERIPH VEIN, PERC (09/01/15)
[2017-10-12] MEDS: TAMSULOSIN 0.4 MG CAPSULE PO SCH (17:33)
[2017-10-13] MEDS: GABAPENTIN 300 MG CAPSULE PO SCH ×2 (03:22→11:18)
[2017-10-13] MEDS: CYCLOBENZAPRINE 10 MG TABLET PO PRN (03:23)
[2017-10-13 05:07] LABS: BASOPHILS # (AUTO) 0.1 10^3/uL (0.0-0.1); BASOPHILS % (AUTO) 0.8 %; EOSINOPHILS # (AUTO) 0.4 10^3/uL (0.0-0.7); EOSINOPHILS % (AUTO) 4.2 %; HGB - HEMOGLOBIN 13.3 g/dL (14.0-18.0); LYMPHOCYTES # (AUTO) 2.2 10^3/uL (1.5-3.5); LYMPHOCYTES % (AUTO) 23.8 %; MEAN CORPUSCULAR HEMOGLOBIN 29.8 pg (27.0-31.0); MEAN CORPUSCULAR HGB CONC 33.4 g/dL (32.0-36.0); MEAN CORPUSCULAR VOLUME 89.1 fL (80.0-94.0); MEAN PLATELET VOLUME 7.1 fL (7.4-11.4); MONOCYTES # (AUTO) 0.6 10^3/uL (0.0-1.0); MONOCYTES % (AUTO) 6.1 %; NEUTROPHILS % (AUTO) 65.1 %; PLT - PLATELET COUNT 238 10^3/uL (130-450); RED BLOOD COUNT 4.46 10^6/uL (4.70-6.10); RED CELL DISTRIBUTION WIDTH 12.5 % (12.0-15.0); WHITE BLOOD COUNT 9.2 x10^3/uL (4.8-10.8)
[2017-10-13] MEDS: SODIUM CHLORIDE FLUSH 0.9% 10 ML SYRINGE IVP SCH ×2 (05:18→14:35)
[2017-10-13] MEDS: SODIUM CHLORIDE 0.9% 1,000 ML IV SCH (05:22)
[2017-10-13 05:29] LABS: ALBUMIN 3.4 g/dL (3.2-5.5); ALBUMIN/GLOBULIN RATIO 1.1 (1.0-2.2); BILIRUBIN,TOTAL 0.6 mg/dL (0.2-1.0); CALCIUM 8.7 mg/dL (8.5-10.3); CREATININE 0.7 mg/dL (0.6-1.2); TOTAL PROTEIN 6.6 g/dL (6.7-8.2)
[2017-10-13] MEDS: PANTOPRAZOLE 40 MG TABLET PO SCH (06:11)
[2017-10-13] MEDS: CEFEPIME 2 GM in SODIUM CHLORIDE 0.9% MINIBAG 100 ML IV SCH (08:19)
[2017-10-13] MEDS: POLYETHYLENE GLYCOL 3350 17 GM PACKET PO SCH (08:19)
[2017-10-13] MEDS: SACCHAROMYCES BOULARDII 250 MG CAPSULE PO SCH (08:19)
[2017-10-13] MEDS: ENOXAPARIN 40 MG/0.4 ML SYRINGE SUBQ SCH (08:19)
[2017-10-13 09:08] VITALS: BP 148/75
--- NOTE | 2017-10-13 11:34 | Discharge Plan ---
Discharge Plan Disposition: Home Health Service Condition: Stable Prescriptions: Ciprofloxacin HCl [Cipro] 500 mg PO BID #10 tablet Diet: Regular Activity Restrictions: Activity as Tolerated Shower Restrictions: No Driving Restrictions: No Assistance Devices: Wheelchair Weight Bearing: Full Weight Additional Instructions or Follow Up instructions: You presented to the emergency department with sepsis secondary to urinary tract infection. When you presented you were quite lethargic and confused but you are now back to your normal mental status. You are also quite weak and have been improving slowly. After being assessed by physical therapy it appears that you do need home health physical therapy and you have been set up for this. You will need another 5 days of oral antibiotics to complete your course for your infection. You should continue to improve and should follow-up with your primary care physician within the next few weeks. We placed a Dowd catheter in the emergency department and given your urinary incontinence and neurogenic bladder you have requested that the Dowd catheter remain in. You have had a chronic Dowd catheter in the past and you and your know how to care for it. Please ensure that it is changed frequently. Follow-Up Care: Home Health - PT No Smoking: If you smoke, Please STOP! Call for help. Follow-up with: Colleen Luna ARNP [Primary Care Provider] -
--- NOTE | 2017-10-13 11:58 | DISCHARGE SUMMARY ---
Discharge Summary Admit Date: 10/11/17 Discharge Date: 10/13/17 Discharging Provider: Jonnathan Jones MD Primary Care Provider: Colleen WOODY Code Status: Attempt Resuscitation Condition at Discharge: Stable Discharge Disposition: 06 Home Health Service - DIAGNOSES Admission Diagnoses: 1. Sepsis 2. Urinary tract infection 3. Hyperglycemia 4. Trigeminal neuralgia 5. DVT prophylaxis Discharge Diagnoses with Status of Each Condition: 1. Sepsis: Resolved 2. Urinary tract infection: Improving 3. Hyperglycemia: Stable 4. Trigeminal neuralgia: Stable 5. Constipation: Resolved - HPI History of Present Illness: Patient is a 62-year-old gentleman with unfortunate past medical history of demyelinating disorder secondary to multiple sclerosis, trigeminal neuralgia, history of duodenal ulcer and history of recurrent UTIs with sepsis who presented to the emergency department with a chief complaint of altered mental status. The patient states that he was in his normal state of health until this morning when he does not remember events very well but his was kind enough to fill in. The patient's states that the patient had gotten up to go to the commode. The patient is typically wheelchair bound and able to transfer from wheelchair to commode and wheelchair to bed with minimal assistance. This morning the states that the patient could not transfer to the toilet as he was so weak. She also noted that he was becoming confused and was not making sense. Given her experience she figured that the patient was getting ill and may be infected. She then called 911. On arrival of EMS the patient was found to be febrile and tachycardic, he was quite somnolent but would open his eyes to voice. Patient denies any headaches, blurred vision, runny nose, sore throat, nasal congestion, difficulty swallowing, neck pain, chest pain, shortness of air, orthopnea, PND, increased lower extremity swelling, abdominal pain, nausea, vomiting, diarrhea, constipation, dysuria, increased urinary urgency, increased urinary frequency, joint pain, muscle aches, joint swelling, back pain, neck stiffness, any new focal neurologic deficits, recent unintentional weight loss or changes in his appetite. On presentation to the emergency department the patient was afebrile however he was tachycardic with heart rate of 117 and blood pressure was borderline low with systolic blood pressure of 107. The patient otherwise does not appear to be in any respiratory distress. The patient however was quite somnolent on presentation. He was arousable and did respond to voice. The patient's lab work revealed a leukocytosis of 15.8 and a slight hyperglycemia with a glucose of 147. The patient's urine analysis revealed positive nitrates, positive leukocyte esterase with 11-25 WBCs and moderate bacteria. The patient appear to be in early sepsis likely secondary to a urinary tract infection. The patient was given 2 L of IV fluid and IV Levaquin in the emergency department. The patient was admitted to the medical [facility] with sepsis secondary to urinary tract infection. - HOSPITAL COURSE Hospital Course: On admission the patient was placed on IV antibiotics with cefepime to cover Pseudomonas as patient has grown Pseudomonas in the past from his urine and he was given IV fluids. The patient had significant improvement just over the first 24 hours as he had resolution of his altered mental status and lethargy. The patient still remained very weak for the next several days he did work with physical therapy and they recommended home PT. We did order home health for the patient to get PT at home. The patient's leukocytosis completely resolved. The patient was afebrile for over 48 hours. The patient's vital signs stabilized. The patient's urine culture appeared to be contaminated therefore the patient was placed on oral Cipro at discharge as all his previous urine cultures have been susceptible to Cipro. The patient will complete 5 additional days of Cipro to complete his course of antibiotics for his urinary tract infection and sepsis. The patient was also found to be hyperglycemic on presentation and had an A1c of 6.8. The patient was not started on metformin or any other diabetic medication he will need to follow-up with his primary care physician as an outpatient and will likely initially be placed on diet and lifestyle changes before repeating a hemoglobin A1c. The patient was stable at the time of discharge we did leave his Dowd catheter in as the patient requested. The patient has had a chronic Dowd catheter in the past. The patient will follow up with his primary care physician in the next few weeks. - ALLERGIES Allergies/Adverse Reactions: Allergies Allergy/AdvReac Type Severity Reaction Status Date / Time No Known Drug Allergies Allergy Verified 10/11/17 05:27 - MEDICATIONS Home Medications: Ambulatory Orders Medication Instructions Recorded Confirmed carBAMazepine [TEGretol] 200 mg PO BID PRN 02/09/16 10/11/17 Cyclobenzaprine HCl 10 mg PO TID PRN 10/11/17 10/11/17 Gabapentin 600 mg PO TID 10/11/17 10/11/17 Tamsulosin HCl [Flomax] 0.8 mg PO DAILY 10/11/17 10/11/17 Ciprofloxacin HCl [Cipro] 500 mg PO BID #10 tablet 10/13/17 - PHYSICAL EXAM AT DISCHARGE General Appearance: positive: No acute distress, Alert Eyes Bilateral: positive: Normal inspection, PERRL, EOMI. negative: No lid inflammation, Conjunctivae nml, No scleral icterus ENT: positive: ENT inspection nml, Pharynx nml, No signs of dehydration. negative: Purulent nasal drainage, Pharyngeal erythema, Oral lesions Neck: positive: Nml inspection, Thyroid nml, No JVD, Trachea midline. negative : Thyromegaly, Lymphadenopathy (R), Lymphadenopathy (L), Carotid bruit, Tracheal deviation Respiratory: positive: Chest non-tender, No respiratory distress, Breath sounds nml. negative: Wheezes, Rales, Rhonchi Cardiovascular: positive: Regular rate & rhythm, No murmur, No gallop Peripheral Pulses: positive: 2+ Abdomen: positive: Non-tender, No organomegaly, Nml bowel sounds, No distention. negative: Guarding, Rebound, Hepatomegaly Back: positive: Nml inspection. negative: CVA tenderness (R), CVA tenderness (L ) Skin: positive: Color nml, No rash, Warm. negative: Cyanosis, Diaphoresis, Pallor Extremities: positive: Non-tender, Full ROM, Nml appearance, No pedal edema Neurologic/Psychiatric: positive: Oriented x3, CN's nml (2-12), Weakness ( Bilateral lower extremities) - LABS Result Diagrams: 10/13/17 04:53 10/13/17 04:53 Other Lab Results: Laboratory Results WBC 9.2 x10^3/uL (4.8-10.8) 10/13/17 04:53 RBC 4.46 10^6/uL (4.70-6.10) L 10/13/17 04:53 Hgb 13.3 g/dL (14.0-18.0) L 10/13/17 04:53 Hct 39.8 % (42.0-52.0) L 10/13/17 04:53 MCV 89.1 fL (80.0-94.0) 10/13/17 04:53 MCH 29.8 pg (27.0-31.0) 10/13/17 04:53 MCHC 33.4 g/dL (32.0-36.0) 10/13/17 04:53 RDW 12.5 % (12.0-15.0) 10/13/17 04:53 Plt Count 238 10^3/uL (130-450) 10/13/17 04:53 MPV 7.1 fL (7.4-11.4) L 10/13/17 04:53 Neut # 6.0 10^3/uL (1.5-6.6) 10/13/17 04:53 Lymph # 2.2 10^3/uL (1.5-3.5) 10/13/17 04:53 [place] # 0.6 10^3/uL (0.0-1.0) 10/13/17 04:53 Eos # 0.4 10^3/uL (0.0-0.7) 10/13/17 04:53 Baso # 0.1 10^3/uL (0.0-0.1) 10/13/17 04:53 Absolute Nucleated RBC 0.00 x10^3/uL 10/13/17 04:53 Nucleated RBC % 0.0 /100WBC 10/13/17 04:53 Sodium 139 mmol/L (135-145) 10/13/17 04:53 Potassium 4.0 mmol/L (3.5-5.0) 10/13/17 04:53 Chloride 107 mmol/L (101-111) 10/13/17 04:53 Carbon Dioxide 26 mmol/L (21-32) 10/13/17 04:53 Anion Gap 6.0 (6-13) 10/13/17 04:53 BUN 14 mg/dL (6-20) 10/13/17 04:53 Creatinine 0.7 mg/dL (0.6-1.2) 10/13/17 04:53 Estimated GFR (MDRD) 114 (>89) 10/13/17 04:53 Glucose 142 mg/dL (70-100) H 10/13/17 04:53 Glycated Hemoglobin 6.8 % (4.6-6.2) H 10/12/17 06:30 Estim Average Glucose 148 (70-100) H 10/12/17 06:30 Lactic Acid 1.3 mmol/L (0.5-2.2) 10/11/17 06:10 Calcium 8.7 mg/dL (8.5-10.3) 10/13/17 04:53 Total Bilirubin 0.6 mg/dL (0.2-1.0) 10/13/17 04:53 AST 20 IU/L (10-42) 10/13/17 04:53 ALT 38 IU/L (10-60) 10/13/17 04:53 Alkaline Phosphatase 86 IU/L (42-121) 10/13/17 04:53 Total Protein 6.6 g/dL (6.7-8.2) L 10/13/17 04:53 Albumin 3.4 g/dL (3.2-5.5) 10/13/17 04:53 Globulin 3.2 g/dL (2.1-4.2) 10/13/17 04:53 Albumin/Globulin Ratio 1.1 (1.0-2.2) 10/13/17 04:53 Lipase 19 U/L (22-51) L 10/11/17 05:25 Urine Color YELLOW 10/11/17 06:00 Urine Clarity CLEAR (CLEAR) 10/11/17 06:00 Urine pH 6.0 PH (5.0-7.5) 10/11/17 06:00 Ur Specific [place] 1.020 (1.002-1.030) 10/11/17 06:00 Urine Protein NEGATIVE mg/dL (NEGATIVE) 10/11/17 06:00 Urine Glucose (UA) 250 mg/dL (NEGATIVE) H 10/11/17 06:00 Urine Ketones NEGATIVE mg/dL (NEGATIVE) 10/11/17 06:00 Urine Occult Blood TRACE-INTA (NEGATIVE) 10/11/17 06:00 Urine Nitrite POSITIVE (NEGATIVE) H 10/11/17 06:00 Urine Bilirubin NEGATIVE (NEGATIVE) 10/11/17 06:00 Urine Urobilinogen 0.2 (NORMAL) E.U./dL (NORMAL) 10/11/17 06:00 Ur Leukocyte Esterase SMALL (NEGATIVE) H 10/11/17 06:00 Urine RBC 0-5 /HPF (0-5) 10/11/17 06:00 Urine WBC 11-25 /HPF (0-3) H 10/11/17 06:00 Ur Squamous Epith Cells FEW Squamous (<= Few) 10/11/17 06:00 Urine Bacteria Moderate /HPF (None Seen) H 10/11/17 06:00 Ur Microscopic Review INDICATED 10/11/17 06:00 Urine Culture Comments INDICATED 10/11/17 06:00 Influenza A (Rapid) Negative (Negative) 10/11/17 05:55 Influenza B (Rapid) Negative (Negative) 10/11/17 05:55 Influenza Types A,B Ag - 10/11/17 05:55 - DIAGNOSTIC IMAGING Diagnostic Imaging Results: Final report reviewed Diagnostic Imaging Results Comments: Chest x-ray Impression: Stable negative single view chest - FOLLOW UP Follow Up: Patient was discharged home on oral antibiotics with ciprofloxacin for an additional 5 days. He was also discharged with a Dowd catheter and will follow up with his primary care physician regarding his elevated blood glucose and chronic medical problems. - TIME SPENT Time Spent in Discharge (Minutes): 45
== END 2017-10-13 14:59 | disposition home health service (06) | DRG 871 ==
LOC: EDUNIT# → EDBD → SUPCPDRO 05:21 → ED 05:21 → MS2 07:53
PROVIDERS: ADMIT Internal Medicine; ATTEND Internal Medicine
DX: A41.9 Sepsis, unspecified organism (principal); G93.41 Metabolic encephalopathy; N39.0 Urinary tract infection, site not specified; R65.20 Severe sepsis without septic shock; G35 Multiple sclerosis; I95.9 Hypotension, unspecified; G50.0 Trigeminal neuralgia; K59.00 Constipation, unspecified; G62.9 Polyneuropathy, unspecified; N31.9 Neuromuscular dysfunction of bladder, unspecified; N39.498 Other specified urinary incontinence; Z87.11 Personal history of peptic ulcer disease; Z99.3 Dependence on wheelchair; Z86.19 Personal history of other infectious and parasitic diseases
CPT/HCPCS: 36415; 51702; 71045; 80053; 81001; 81003; 83036; 83605; 83690; 85025; 87040; 87086; 87275; 87276; 96361; 96365; 99284; 99285

== ENCOUNTER 2017-11-10 16:59 | Outpatient (CLI) | payer MEDICAID | END 2017-11-10 17:00 | disposition critical access hospital (66) | LOC: EMS 16:59 | PROVIDERS: ATTEND Surgery | DX: R68.84 Jaw pain (principal); R13.10 Dysphagia, unspecified | CPT/HCPCS: A0425; A0429 ==

== ENCOUNTER 2017-11-10 17:39 | Emergency (ER) | payer MEDICAID ==
[2017-11-10] MEDS ORDERED: HYDROmorphone 1 MG/ML SYRINGE IVP STA ×2 (19:16→21:21)
[2017-11-10] MEDS ORDERED: SODIUM CHLORIDE 0.9% 1,000 ML IV ONE ×3 (19:16→21:59)
[2017-11-10] MEDS ORDERED: KETOROLAC 60 MG/2 ML VIAL IVP STA (19:16)
--- NOTE | 2017-11-10 19:16 | ED Physician Documentation ---
PD HPI HEENT - Stated complaint Stated Complaint: JAW PX - Chief complaint Chief Complaint: Heent - History obtained from History obtained from: Patient - History of Present Illness Timing - onset: How many days ago (few) Timing - duration: Days (3) Timing - details: Abrupt onset, Still present Location: Other (right jaw and TMJ area - with history of trigeminal neuralgia episodes int he past, and these symptoms being c/w with that. He has had significant enough pain that he has been unable to eat as any temperature or movement to the mouth triggers a pain episode. He has been prescribed Tegretol by his neurologist to take when he gets an episode. He gets them infrequently enough that he does not take it regularly. His last episode was about a year ago. He did start the Tegretol 3 days ago is not having much improvement in the pain as yet. He has not taken other pain medicines. He has been unable to eat or drink for the last few days. He does have history of MS and is wheelchair bound and does his own transfers and he has been unable to do that because of the general weakness. He has an indwelling Valerio and his urine output has been very dark and minimal consistent with dehydration.) Improves: No: Medication (has not had improvement with Tegretol as yet.) Worsens: Swalllowing, Temperatures, Everything Associated symptoms: Unable to swallow (due to pain elicited.). No: Fever, Congestion, Facial swelling, Headache Similar symptoms before: Diagnosis (trigeminal neuralgia, dehydration, MS exac.) Recently seen: Not recently seen Review of Systems Constitutional: reports: Fatigue. denies: Fever, Chills, Myalgias Nose: denies: Rhinorrhea / runny nose, Congestion Throat: reports: Other (right facial pain in sharp lancinating jabs.). denies: Sore throat Cardiac: denies: Chest pain / pressure Respiratory: denies: Cough GI: denies: Abdominal Pain, Nausea, Vomiting, Diarrhea : reports: Other (much less urine output than usual with dark concentrated urine.) Skin: denies: Rash PD PAST MEDICAL HISTORY - Past Medical History Cardiovascular: None Respiratory: None Neuro: Peripheral neuropathy, Multiple sclerosis, Other Endocrine/Autoimmune: None GI: Ulcers : Incontinence HEENT: None Psych: None Musculoskeletal: None Derm: None - Past Surgical History Past Surgical History: Yes General: Other Ortho: Shoulder arthroplasty, Other - Present Medications Home Medications: Ambulatory Orders Medication Instructions Recorded Confirmed carBAMazepine [TEGretol] 200 mg PO BID PRN 02/09/16 10/11/17 Cyclobenzaprine HCl 10 mg PO TID PRN 10/11/17 10/11/17 Gabapentin 600 mg PO TID 10/11/17 10/11/17 Tamsulosin HCl [Flomax] 0.8 mg PO DAILY 10/11/17 10/11/17 Ciprofloxacin HCl [Cipro] 500 mg PO BID #10 tablet 10/13/17 Dexamethasone [Decadron] 4 mg PO DAILY #5 tablet 11/11/17 Ondansetron Odt [Zofran] 4 mg TL Q6H PRN #15 tablet 11/11/17 Oxycodone HCl/Acetaminophen 1 each PO Q6H PRN #20 tablet 11/11/17 [Percocet 5-325 mg Tablet] - Allergies Allergies/Adverse Reactions: Allergies Allergy/AdvReac Type Severity Reaction Status Date / Time No Known Drug Allergies Allergy Verified 10/11/17 05:27 - Social History Does the pt smoke?: No Smoking Status: Never smoker Does the pt drink ETOH?: Yes Does the pt have substance abuse?: No - Immunizations Immunizations are current?: Yes - POLST Patient has POLST: No POLST Status: Full Code PD ED PE NORMAL - Vitals Vital signs reviewed: Yes - General General: Alert and oriented X 3, Well developed/nourished, Other (appears in pain with sharp jolts of it right jaw. ) - HEENT HEENT: Ears normal, Pharynx benign - Neck Neck: Supple, no meningeal sign, No adenopathy, No JVD - Cardiac Cardiac: RRR, No murmur - Respiratory Respiratory: Clear bilaterally - Abdomen Abdomen: Soft, Non tender - Male Male : Other (valerio in place with only small amount of very dark urine out in bag. ) - Back Back: No CVA TTP - Derm Derm: Normal color, Warm and dry - Extremities Extremities: No edema - Neuro Neuro: Alert and oriented X 3, Other (weakness of legs, c/w his paralysis from MS. ) Eye Opening: Spontaneous Motor: Obeys Commands Verbal: Oriented GCS Score: 15 - Psych Psych: Normal mood Results - Vitals Vitals: Vital Signs - 24 hr 11/10/17 11/10/17 17:44 20:54 Temperature 36.8 C Heart Rate 91 87 Respiratory 17 18 Rate Blood Pressure 158/97 H 155/104 H O2 Saturation 95 97 Oxygen O2 Source Room air - Labs Labs: Laboratory Tests 11/10/17 11/10/17 11/10/17 20:08 20:08 20:46 WBC 8.5 RBC 5.43 Hgb 16.0 Hct 47.1 MCV 86.8 MCH 29.5 MCHC 34.0 RDW 12.8 Plt Count 282 MPV 7.3 L Neut # 5.3 Lymph # 2.5 [place] # 0.4 Eos # 0.1 Baso # 0.1 Absolute Nucleated RBC 0.00 Nucleated RBC % 0.0 ESR 10 Sodium 139 Potassium 3.5 Chloride 105 Carbon Dioxide 22 Anion Gap 12.0 BUN 14 Creatinine 0.8 Estimated GFR (MDRD) 98 Glucose 84 Calcium 8.6 Total Bilirubin 0.8 AST 30 ALT 50 Alkaline Phosphatase 104 Total Protein 6.7 Albumin 3.9 Globulin 2.8 Albumin/Globulin Ratio 1.4 Lipase 15 L Urine Color Urine Clarity Urine pH Ur Specific [place] Urine Protein Urine Glucose (UA) Urine Ketones Urine Occult Blood Urine Nitrite Urine Bilirubin Urine Urobilinogen Ur Leukocyte Esterase Urine RBC Urine WBC Ur Squamous Epith Cells Urine Bacteria Urine Mucus Ur Microscopic Review Urine Culture Comments 11/10/17 20:55 WBC RBC Hgb Hct MCV MCH MCHC RDW Plt Count MPV Neut # Lymph # [place] # Eos # Baso # Absolute Nucleated RBC Nucleated RBC % ESR Sodium Potassium Chloride Carbon Dioxide Anion Gap BUN Creatinine Estimated GFR (MDRD) Glucose Calcium Total Bilirubin AST ALT Alkaline Phosphatase Total Protein Albumin Globulin Albumin/Globulin Ratio Lipase Urine Color YELLOW Urine Clarity HAZY Urine pH 6.0 Ur Specific [place] >=1.030 H Urine Protein TRACE Urine Glucose (UA) NEGATIVE Urine Ketones 40 H Urine Occult Blood NEGATIVE Urine Nitrite NEGATIVE Urine Bilirubin NEGATIVE Urine Urobilinogen 0.2 (NORMAL) Ur Leukocyte Esterase SMALL H Urine RBC 0-5 Urine WBC >25 H Ur Squamous Epith Cells NONE SEEN Urine Bacteria Moderate H Urine Mucus Moderate Strands Ur Microscopic Review INDICATED Urine Culture Comments INDICATED PD MEDICAL DECISION MAKING - ED course Complexity details: reviewed results, re-evaluated patient (improved urine output with several liters fluid IV, and less pain with IV pain meds, as well as anti-inflammatories. Still having some jabs of pain but less severe and less often. He is able to take sips of fluids. ), considered differential, d/w patient, d/w advanced manufacturing consultant ([place] with Hospitalist, without real definite admission criteria, but concern of his MS and general weakness and unable to self-transfer, and pain control. Hospitalist talked with patient/family and came up with acceptable outpatient course of treatment. ) Departure - Departure Disposition: 01 Home, Self Care Clinical Impression: Dehydration, General weakness, Trigeminal neuralgia of right side of face, Severe pain Condition: Stable Record reviewed to determine appropriate education?: Yes Prescriptions: Dexamethasone [Decadron] 4 mg PO DAILY #5 tablet Ondansetron Odt [Zofran] 4 mg TL Q6H PRN #15 tablet PRN Reason: Nausea / Vomiting Oxycodone HCl/Acetaminophen [Percocet 5-325 mg Tablet] 1 each PO Q6H PRN #20 tablet PRN Reason: Pain Comments: Continue your current medications. Increase the Tegretol dose as discussed with him. While that is becoming more effective, use Tylenol or Percocet if needed for pain. Also you use Decadron daily for 5 more days to try to decrease inflammation of the nerve. Follow-up with your primary care if not improving over the next couple of days. Small frequent fluids and food as regular.
[2017-11-10] MEDS ORDERED: DEXAMETHASONE 10 MG/ML VIAL IVP STA (19:18)
[2017-11-10 20:30] LABS: BASOPHILS # (AUTO) 0.1 10^3/uL (0.0-0.1); BASOPHILS % (AUTO) 0.6 %; EOSINOPHILS # (AUTO) 0.1 10^3/uL (0.0-0.7); EOSINOPHILS % (AUTO) 1.5 %; LYMPHOCYTES # (AUTO) 2.5 10^3/uL (1.5-3.5); LYMPHOCYTES % (AUTO) 29.7 %; MEAN CORPUSCULAR HEMOGLOBIN 29.5 pg (27.0-31.0); MEAN CORPUSCULAR VOLUME 86.8 fL (80.0-94.0); MEAN PLATELET VOLUME 7.3 fL (7.4-11.4); MONOCYTES # (AUTO) 0.4 10^3/uL (0.0-1.0); MONOCYTES % (AUTO) 5.3 %; NEUTROPHILS # (AUTO) 5.3 10^3/uL (1.5-6.6); NEUTROPHILS % (AUTO) 62.9 %; PLT - PLATELET COUNT 282 10^3/uL (130-450); RED BLOOD COUNT 5.43 10^6/uL (4.70-6.10); RED CELL DISTRIBUTION WIDTH 12.8 % (12.0-15.0); WHITE BLOOD COUNT 8.5 x10^3/uL (4.8-10.8)
[2017-11-10 21:03] LABS: ALBUMIN 3.9 g/dL (3.2-5.5); ALBUMIN/GLOBULIN RATIO 1.4 (1.0-2.2); BILIRUBIN,TOTAL 0.8 mg/dL (0.2-1.0); CALCIUM 8.6 mg/dL (8.5-10.3); CREATININE 0.8 mg/dL (0.6-1.2); TOTAL PROTEIN 6.7 g/dL (6.7-8.2)
[2017-11-10 21:07] LABS: BILIRUBIN,URINE NEGATIVE (NEGATIVE); GLUCOSE, URINE (UA) NEGATIVE (NEGATIVE); KETONES,URINE (UA) 40 mg/dL (NEGATIVE); LEUKOCYTE ESTERASE, URINE SMALL (NEGATIVE); NITRITE,URINE NEGATIVE (NEGATIVE); OCCULT BLOOD,URINE NEGATIVE (NEGATIVE); PROTEIN,URINE TRACE mg/dL (NEGATIVE); UROBILINOGEN,URINE 0.2 (NORMAL) E.U./dL (NORMAL)
[2017-11-10 21:15] LABS: CLARITY,URINE HAZY (CLEAR)
[2017-11-10 21:29] LABS: BACTERIA,URINE Moderate /HPF (None Seen); MUCUS,URINE Moderate Strands; RBC,URINE 0-5 /HPF (0-5); SQUAMOUS EPITHELIAL CELL,UR NONE SEEN (<= Few)
[2017-11-11] MEDS ORDERED: oxyCODONE/ACET 5/325 Prepack 4 PO STA (00:06)
[2017-11-11 00:27] VITALS: BP 121/68
== END 2017-11-11 00:20 | disposition home or self-care (01) ==
LOC: EDUNIT# → ED 17:39 → SUPCPDRO 17:39 → ED 11-11 00:20
DX: E86.0 Dehydration (principal); G50.0 Trigeminal neuralgia; R53.1 Weakness; G89.29 Other chronic pain; G35 Multiple sclerosis; Z99.3 Dependence on wheelchair; G62.9 Polyneuropathy, unspecified; Z87.11 Personal history of peptic ulcer disease
CPT/HCPCS: 36415; 80053; 80156; 81001; 83690; 85025; 85651; 87086; 96361; 96374; 96376; 99284; J1170; 81003

== ENCOUNTER 2017-11-11 00:32 | Outpatient (CLI) | payer MEDICAID | END 2017-11-11 00:33 | disposition home or self-care (01) | LOC: EMS 00:32 | PROVIDERS: ATTEND Surgery | DX: G82.20 Paraplegia, unspecified (principal) | CPT/HCPCS: A0425; A0428 ==

== ENCOUNTER 2017-11-21 16:47 | Observation (INO) | payer MEDICAID ==
[2017-11-21] MEDS ORDERED: SODIUM CHLORIDE 0.9% 2,000 ML IV ONE (17:16)
--- NOTE | 2017-11-21 18:17 | ED Physician Documentation ---
History of Present Illness - Stated complaint Stated Complaint: DEHYDRATED - Chief complaint Chief Complaint: General - History obtained from History obtained from: Patient, Family - History of Present Illness Timing: How many weeks ago (2) Pain level max: 9 Pain level now: 6 Improved by: nothing Worsened by: nothing - Additonal information Additional information: Patient is a 62-year-old gentleman who presents to the emergency department with severe trigeminal neuralgia for the past 3 weeks. He has been unable to eat or drink anything secondary to the pain for the past week. Was supposed to have surgery at [facility] today for this, but was canceled due to insurance reasons. He also has MS and normally can get around in a wheelchair, currently is too weak to stand. Review of Systems Ten Systems: 10 systems reviewed and negative Constitutional: denies: Fever, Chills Ears: denies: Ear pain, Reviewed and negative Nose: denies: Rhinorrhea / runny nose Throat: denies: Sore throat Cardiac: denies: Chest pain / pressure Respiratory: denies: Dyspnea, Cough GI: denies: Abdominal Pain, Diarrhea : denies: Dysuria Skin: denies: Rash Musculoskeletal: denies: Neck pain, Back pain Neurologic: denies: Headache PD PAST MEDICAL HISTORY - Past Medical History Cardiovascular: None Respiratory: None Neuro: Peripheral neuropathy, Multiple sclerosis, Other Endocrine/Autoimmune: None GI: Ulcers : Incontinence HEENT: None Psych: None Musculoskeletal: None Derm: None - Past Surgical History Past Surgical History: Yes General: Other Ortho: Shoulder arthroplasty, Other - Present Medications Home Medications: Ambulatory Orders Medication Instructions Recorded Confirmed Cyclobenzaprine HCl 10 mg PO TID PRN 10/11/17 11/21/17 Gabapentin 300 mg PO TID PRN 10/11/17 11/21/17 Oxycodone HCl/Acetaminophen 1 each PO Q6H PRN #20 tablet 11/11/17 11/21/17 [Percocet 5-325 mg Tablet] Tamsulosin [Flomax] 0.4 mg PO DAILY 11/21/17 11/21/17 carBAMazepine [Carbamazepine] 200 mg PO 0300,0900,1500,2100 11/21/17 11/21/17 - Allergies Allergies/Adverse Reactions: Allergies Allergy/AdvReac Type Severity Reaction Status Date / Time No Known Drug Allergies Allergy Verified 10/11/17 05:27 - Social History Does the pt smoke?: No Smoking Status: Never smoker Does the pt drink ETOH?: Yes Does the pt have substance abuse?: No - Immunizations Immunizations are current?: Yes - POLST Patient has POLST: No POLST Status: Full Code PD ED PE NORMAL - Vitals Vital signs reviewed: Yes - General General: Alert and oriented X 3, Other (appears tired) - HEENT HEENT: PERRL, Other (dry lips, furrowed tongue) - Neck Neck: Supple, no meningeal sign - Cardiac Cardiac: RRR, Strong equal pulses - Respiratory Respiratory: No respiratory distress, Clear bilaterally - Abdomen Abdomen: Soft, Non tender, Non distended - Back Back: No CVA TTP - Derm Derm: Warm and dry, No rash - Extremities Extremities: No calf tenderness / cord - Neuro Neuro: Alert and oriented X 3 - Psych Psych: Normal mood, Normal affect Results - Vitals Vitals: Vital Signs - 24 hr 11/21/17 17:03 Heart Rate 95 Respiratory 16 Rate Blood Pressure 151/95 H O2 Saturation 96 Oxygen O2 Source Room air - Labs Labs: Laboratory Tests 11/21/17 11/21/17 18:10 18:29 WBC 7.8 RBC 5.74 Hgb 16.6 Hct 49.7 MCV 86.6 MCH 28.9 MCHC 33.4 RDW 13.1 Plt Count 369 MPV 7.7 Neut # 5.1 Lymph # 2.2 [place] # 0.5 Eos # 0.0 Baso # 0.0 Absolute Nucleated RBC 0.01 Nucleated RBC % 0.1 Sodium 135 Potassium 3.6 Chloride 100 L Carbon Dioxide 20 L Anion Gap 15.0 H BUN 19 Creatinine 0.7 Estimated GFR (MDRD) 114 Glucose 103 H Calcium 9.4 Phosphorus 2.7 Magnesium 2.0 Total Bilirubin 1.5 H AST 31 ALT 43 Alkaline Phosphatase 132 H Total Protein 7.8 Albumin 4.5 Globulin 3.3 Albumin/Globulin Ratio 1.4 Lipase 17 L PD MEDICAL DECISION MAKING - ED course Complexity details: reviewed old records, reviewed results, re-evaluated patient , considered differential, d/w patient, d/w family, d/w document management consultant ED course: Patient is a 62-year-old male with severe MS who also has severe trigeminal neuralgia. He has been on large doses of Tegretol without relief. His also been on pain medication. He is now to the point that he is unable to eat or drink anything secondary to the facial pain and spasms it causes. Even placing a straw in his mouth causes spasming of the right side of the face. His surgery was canceled today, his surgeon is out of the office for the next week and will likely be at least 2 weeks before he can have surgery performed. As he cannot tolerate anything by mouth and has no other form of getting liquids or nutrition in him, I think it is best if we rehydrate him, place him in observation for a PICC line and to set up TPN for home. He lives at home with his family who does a very good job caring for him. Discussed the case with Dr. Lepe, hospitalist who accepts. Also discussed with anesthesia, Danyel Hart who will place the PICC line in the morning. This document was made in part using voice recognition software. While efforts are made to proofread this document, sound alike and grammatical errors may occur. Departure - Departure Disposition: ED Place in Observation Clinical Impression: Dehydration, Trigeminal neuralgia, Multiple sclerosis Malnutrition Qualifiers: Malnutrition type: unspecified type Qualified Code(s): E46 - Unspecified protein-calorie malnutrition Condition: Stable Discharge Date/Time: 11/21/17 19:58
[2017-11-21 18:32] LABS: BASOPHILS % (AUTO) 0.6 %; EOSINOPHILS % (AUTO) 0.6 %; HGB - HEMOGLOBIN 16.6 g/dL (14.0-18.0); LYMPHOCYTES # (AUTO) 2.2 10^3/uL (1.5-3.5); LYMPHOCYTES % (AUTO) 28.5 %; MEAN CORPUSCULAR HEMOGLOBIN 28.9 pg (27.0-31.0); MEAN CORPUSCULAR HGB CONC 33.4 g/dL (32.0-36.0); MEAN CORPUSCULAR VOLUME 86.6 fL (80.0-94.0); MEAN PLATELET VOLUME 7.7 fL (7.4-11.4); MONOCYTES # (AUTO) 0.5 10^3/uL (0.0-1.0); MONOCYTES % (AUTO) 5.8 %; NEUTROPHILS # (AUTO) 5.1 10^3/uL (1.5-6.6); NEUTROPHILS % (AUTO) 64.5 %; PLT - PLATELET COUNT 369 10^3/uL (130-450); RED BLOOD COUNT 5.74 10^6/uL (4.70-6.10); RED CELL DISTRIBUTION WIDTH 13.1 % (12.0-15.0); WHITE BLOOD COUNT 7.8 x10^3/uL (4.8-10.8)
[2017-11-21 18:43] LABS: ALBUMIN 4.5 g/dL (3.2-5.5); ALBUMIN/GLOBULIN RATIO 1.4 (1.0-2.2); BILIRUBIN,TOTAL 1.5 mg/dL (0.2-1.0); CALCIUM 9.4 mg/dL (8.5-10.3); CREATININE 0.7 mg/dL (0.6-1.2); PHOSPHORUS 2.7 mg/dL (2.5-4.6); TOTAL PROTEIN 7.8 g/dL (6.7-8.2)
[2017-11-21] MEDS ORDERED: SODIUM CHLORIDE FLUSH 0.9% 10 ML SYRINGE IVP PRN (18:55)
[2017-11-21] MEDS ORDERED: GABAPENTIN 300 MG CAPSULE PO PRN (19:02)
[2017-11-21] MEDS ORDERED: CYCLOBENZAPRINE 10 MG TABLET PO PRN (19:02)
--- NOTE | 2017-11-21 19:22 | HISTORY & PHYSICAL EXAMINATION ---
Chief Complaint - Chief Complaint Chief Complaint: Trigeminal neuralgia pain which has caused malnutrition History of Present Illness - Admitted From Admitted From:: home - History Obtained From History obtained from: patient - History of Present Illness HPI Comment/Other: Mr. Asher Bradshaw is a very pleasant 62-year-old male who has had long history of multiple sclerosis with associated trigeminal neuralgia. The patient was scheduled to have an ablation of the trigeminal nerve this evening today, however due to a problem with his insurance his surgery was canceled. He has had a very minimal amount of p.o. intake over the last 2 weeks and now will have to wait at least another 2 weeks before he can have surgery. We will admit him to observation, have a PICC line placed, and sent him home on TPN and pain medicine until he can have his surgery. History - Past Medical History Cardiovascular: reports: None Respiratory: reports: None Neuro: reports: Peripheral neuropathy, Multiple sclerosis, Other (Trigeminal neuralgia) Endocrine/Autoimmune: reports: None GI: reports: Ulcers : reports: Incontinence HEENT: reports: None Psych: reports: None Musculoskeletal: reports: None Derm: reports: None MRSA Hx?: No - Past Surgical History General: reports: Other (Inguinal hernia repair) Ortho: reports: Shoulder arthroplasty, Other - Family & Social History Social History Notes: The patient currently lives in [place] with his . He has been to her for 26 years. They also live with the patient's [id number]. The patient has a 31-year-old daughter from a previous marriage who lives in [place]. The patient and his moved would be [place] about 2-1/ 2 years ago from [place], [place]. The moved here because the patient's condition was getting worse and the patient's [id number] was alone after her and would be able to help out with the care of the patient. At baseline the patient is able to transfer from wheelchair to commode and wheelchair to bed but is primarily wheelchair bound. The patient has never smoked, he rarely drinks alcohol and denies any illicit drug use. - POLST Patient has POLST: No POLST Status: Full Code Meds/Allgy - Home Medications Home Medications: Ambulatory Orders Medication Instructions Recorded Confirmed Cyclobenzaprine HCl 10 mg PO TID PRN 10/11/17 11/21/17 Gabapentin 300 mg PO TID PRN 10/11/17 11/21/17 Oxycodone HCl/Acetaminophen 1 each PO Q6H PRN #20 tablet 11/11/17 11/21/17 [Percocet 5-325 mg Tablet] Tamsulosin [Flomax] 0.4 mg PO DAILY 11/21/17 11/21/17 carBAMazepine [Carbamazepine] 200 mg PO 0300,0900,1500,2100 11/21/17 11/21/17 - Allergies Allergies/Adverse Reactions: Allergies Allergy/AdvReac Type Severity Reaction Status Date / Time No Known Drug Allergies Allergy Verified 10/11/17 05:27 Review of Systems - Constitutional Constitutional: reports: Weakness, Weight loss. denies: Chills, Malaise - Eyes Eyes: denies: Pain, Irritation, Blurred vision - Ears, Nose & Throat Ears, Nose & Throat: denies: Ear pain, Hearing loss, Hearing aids, Tinnitus, Vertigo, Nasal pain - Cardiovascular Cariovascular: denies: Irregular heart rate, Palpitations, Chest pain, Edema - Respiratory Respiratory: denies: Cough, Sputum production, Wheezing, Snoring, Orthopnea - Gastrointestinal Gastrointestinal: denies: Abdominal pain, Abdominal distention, Constipation, Diarrhea, Change in bowel habits, Rectal bleeding - Genitourinary Genitourinary: denies: Dysuria, Frequency, Urgency, Hematuria - Musculoskeletal Musculoskeletal: reports: Stiffness, Limited range of motion, Muscle weakness - Integumentary Integumentary: denies: Rash, Pruritis, Lesions, Dryness - Neurological Neurological: reports: Focal weakness, Other (History of multiple sclerosis, trigeminal neuralgia, and Lyme disease). denies: General weakness - Psychiatric Psychiatric: denies: Depression, Anxiety, Suicidal, Hallucinations - Endocrine Endocrine: denies: Polyuria, Polydypsia, Polyphagia - Hematologic/Lymphatic Hematologic/Lymphatic: denies: Anemia, Bruising, Lymphadenopathy - All Other Systems All Other Systems: reports: Reviewed and negative Exam - Vital Signs Reviewed Vital Signs: Yes Vital Signs: Vital Signs x48h Temp Pulse Resp BP Pulse Ox 11/21/17 18:58 36.2 C L 66 16 143/91 H 98 11/21/17 17:03 95 16 151/95 H 96 - Physical Exam General Appearance: positive: No acute distress, Alert Eyes Bilateral: positive: Normal inspection, PERRL, EOMI, No lid inflammation, Conjunctivae nml, No scleral icterus ENT: positive: ENT inspection nml, Pharynx nml, No signs of dehydration Neck: positive: Nml inspection, Thyroid nml, No JVD, Trachea midline. negative : Thyromegaly Respiratory: positive: Chest non-tender, No respiratory distress, Breath sounds nml. negative: Wheezes, Rales, Rhonchi Cardiovascular: positive: Regular rate & rhythm, No murmur, No gallop Peripheral Pulses: positive: 1+ Abdomen: positive: Non-tender, No organomegaly, Nml bowel sounds, No distention. negative: Guarding, Rebound Back: positive: Nml inspection. negative: CVA tenderness (R), CVA tenderness (L ) Skin: positive: Color nml, No rash, Warm, Dry. negative: Cyanosis Extremities: positive: Non-tender. negative: Pedal edema, Joint swelling Neurologic/Psychiatric: positive: Oriented x3, CN's nml (2-12), Motor nml, Sensation nml, Mood/affect nml Conclusion/Plan - Problem List (1) Trigeminal neuralgia Conclusion/Plan: Uncontrolled, despite high doses of carbamazepine. The patient was scheduled to have a nerve ablation earlier today however due to a glitch in the insurance and has been been postponed for 2 weeks. Meanwhile, the patient has not had more than a few sips or bites for the last 2 weeks and he has at least another 2 weeks until he can have surgery so the plan is to bring him in to observation , have a PICC line placed, and sent him home on TPN for the 2 weeks prior to his surgery. I will start him on methadone as I believe this will be very effective for pain management with a minimal amount of sedation. (2) Multiple sclerosis Conclusion/Plan: Long-term, continue home care. (3) Lyme disease Conclusion/Plan: Nonacute, continue present care. - Lab Results Lab results reviewed: Yes Yuan Bones: 11/21/17 18:29 11/21/17 18:10 Core Measures - Anticipated LOS I expect patient to be DC'd or transferred within 96 hours.: Yes - DVT/VTE - Prophylaxis VTE/DVT Device ordered at admit?: Yes
[2017-11-21] MEDS ORDERED: METHADONE 5 MG TABLET PO PRN (19:49)
[2017-11-21] MEDS ORDERED: TEMAZEPAM 7.5 MG CAPSULE PO PRN (19:55)
[2017-11-21] MEDS: SODIUM CHLORIDE FLUSH 0.9% 10 ML SYRINGE IVP SCH ×2 (20:20→23:35)
[2017-11-21] MEDS: D5.45NS W/20 MEQ KCL 1,000 ML IV SCH (20:20)
[2017-11-21] MEDS: carBAMazepine 200 MG TABLET PO ONE (21:26)
[2017-11-21] MEDS: HYDROmorphone 1 MG/ML SYRINGE IVP PRN (23:35)
[2017-11-22] MEDS ORDERED: diazePAM INJ 5 MG/ML SYRINGE IVP SCH (00:07)
[2017-11-22] MEDS: SODIUM CHLORIDE FLUSH 0.9% 10 ML SYRINGE IVP SCH ×4 (00:19→18:30)
[2017-11-22] MEDS: HYDROmorphone 1 MG/ML SYRINGE IVP PRN ×11 (03:07→18:30)
[2017-11-22] MEDS ORDERED: carBAMazepine 200 MG TABLET PO ONE (03:27)
[2017-11-22] MEDS: carBAMazepine 200 MG TABLET PO ONE (03:35)
[2017-11-22] MEDS: diazePAM INJ 5 MG/ML SYRINGE IVP PRN ×4 (03:38→15:36)
[2017-11-22] MEDS: D5.45NS W/20 MEQ KCL 1,000 ML IV SCH (05:52)
[2017-11-22] MEDS ORDERED: oxyCOD/ACETAMIN 5 MG/325 MG TABLET PO PRN (07:46)
[2017-11-22] MEDS: carBAMazepine 200 MG TABLET PO SCH ×3 (09:00→18:40)
[2017-11-22] MEDS ORDERED: POLYETHYLENE GLYCOL 3350 17 GM PACKET PO SCH (09:00)
[2017-11-22] MEDS ORDERED: TAMSULOSIN 0.4 MG CAPSULE PO SCH (09:00)
--- NOTE | 2017-11-22 10:33 | PROCEDURE REPORT ---
Hospitalist Procedure Note - Procedure Note Procedure Note: ANESTHESIA PROCEDURE NOTE: call to place PICC in 2212, indications are malnutrition, MS, Trigeminal Neuralgia, and need for TPN. Pt in 07/15 pain during consult for PICC. Pain intense and constant at V3 branch of R Trigeminal nerve. Facial nerve block offered to patient after speaking with internal medicine as well as patient. Clean procedure. 3cc 0.5% Marcaine plain injected at R intraoral medial side of ramus distal to 3rd molar. Patient tolerated procedure without complication. Pt states minimal relief after 5 mins. Block repeated slightly medial to previous injection. Pt tolerated procedure without complications. 5 mins post block, pt states pain is better.
--- NOTE | 2017-11-22 10:43 | XRAY Report ---
EXAM: CHEST RADIOGRAPHY EXAM DATE: 11/22/2017 10:38 AM. CLINICAL HISTORY: New PICC@ R basilic v. COMPARISON: None. TECHNIQUE: 1 view. FINDINGS: Lungs/Pleura: No focal opacities evident. No pleural effusion. No pneumothorax. Mediastinum: Within exam limitations, the cardiomediastinal contour is normal. Other: Right PICC terminates at the upper SVC region. IMPRESSION: Right PICC terminates at the upper SVC region. [facility] Referring Provider Line: [phone] SITE ID: [id number]
--- NOTE | 2017-11-22 10:43 | XRAY Preliminary Report ---
Exam: XR CHEST FOR LINE PLACEMENT IMPRESSION: Right PICC terminates at the upper SVC region. [facility] SITE ID: [id number]
[2017-11-22] MEDS ORDERED: HYDROmorphone 1 MG/ML SYRINGE IVP STA (11:07)
--- NOTE | 2017-11-22 11:47 | Discharge Plan ---
Discharge Plan Disposition: 01 Home, Self Care Condition: Stable Prescriptions: Methadone 5 mg PO TID PRN #42 tablet PRN Reason: Pain Diet: Soft Activity Restrictions: Activity as Tolerated Shower Restrictions: No Driving Restrictions: No Instruction Topics: Methadone tablets No Smoking: If you smoke, Please STOP! Call for help. Follow-up with: Colleen Luna ARNP [Primary Care Provider] -
[2017-11-22 15:46] VITALS: BP 157/99
[2017-11-22] MEDS ORDERED: fentaNYL 100 MCG PATCH TOP SCH (16:00)
--- NOTE | 2017-11-22 18:42 | DISCHARGE SUMMARY ---
Discharge Summary Admit Date: 11/21/17 Discharge Date: 11/22/17 Discharging Provider: Megan Nelson DO Primary Care Provider: Colleen Luna Code Status: Attempt Resuscitation Condition at Discharge: Stable Discharge Disposition: 01 Home, Self Care - DIAGNOSES Admission Diagnoses: 1. Trigeminal neuralgia 2. Multiple sclerosis 3. Lyme disease Discharge Diagnoses with Status of Each Condition: 1. Trigeminal neuralgia - Patient is exquisitely sensitive and unfortunately we have not been able to help him very much during this brief hospitalization. He has received many doses of IV Dilaudid as well as oral methadone and carbamazepine. Anesthesiology placed a PICC line earlier today and the plan is to discharge the patient home on TPN this evening which he will receive until he is able to have a rhizotomy of his trigeminal nerve. It is my hope that the methadone will help him more once the levels become therapeutic. 2. Multiple sclerosis - Continue home care 3. Lyme disease - Continue home care - HPI History of Present Illness: Mr. Asher Washington is a very pleasant 62-year-old male who was admitted to [facility] after coming to the emergency department with intractable pain. The patient has a history of multiple sclerosis and trigeminal neuralgia for which he takes carbamazepine. Unfortunately the trigeminal neuralgia has been worsening and the pain management has been insufficient and the patient was scheduled to have a rhizotomy yesterday but unfortunately this was canceled due to insurance issues. The patient's surgeon is now on vacation and the earliest he would possibly have the procedure will be 2 weeks from now. Unfortunately he has been in so much pain that he has not been eating or drinking and so he was brought in for a PICC line placement and TPN at home until he can have his surgery. He was admitted to observation and given pain medicine and a PICC line was placed today. Home TPN services met with the patient in the hospital and he will now be discharged home. - HOSPITAL COURSE Hospital Course: Mr. Asher Washington is a very pleasant 62-year-old male who was admitted to [facility] after coming to the emergency department with intractable pain. The patient has a history of multiple sclerosis and trigeminal neuralgia for which he takes carbamazepine. Unfortunately the trigeminal neuralgia has been worsening and the pain management has been insufficient and the patient was scheduled to have a rhizotomy yesterday but unfortunately this was canceled due to insurance issues. The patient's surgeon is now on vacation and the earliest he would possibly have the procedure will be 2 weeks from now. Unfortunately he has been in so much pain that he has not been eating or drinking and so he was brought in for a PICC line placement and TPN at home until he can have his surgery. He was admitted to observation and given pain medicine and a PICC line was placed today. Home TPN services met with the patient in the hospital and he will now be discharged home. - ALLERGIES Allergies/Adverse Reactions: Allergies Allergy/AdvReac Type Severity Reaction Status Date / Time No Known Drug Allergies Allergy Verified 10/11/17 05:27 - MEDICATIONS Home Medications: Ambulatory Orders Medication Instructions Recorded Confirmed Cyclobenzaprine HCl 10 mg PO TID PRN 10/11/17 11/21/17 Gabapentin 300 mg PO TID PRN 10/11/17 11/21/17 Oxycodone HCl/Acetaminophen 1 each PO Q6H PRN #20 tablet 11/11/17 11/21/17 [Percocet 5-325 mg Tablet] Tamsulosin [Flomax] 0.4 mg PO DAILY 11/21/17 11/21/17 carBAMazepine [Carbamazepine] 200 mg PO 0300,0900,1500,2100 11/21/17 11/21/17 Methadone 5 mg PO TID PRN #42 tablet 11/22/17 - PHYSICAL EXAM AT DISCHARGE General Appearance: positive: Alert, Severe distress Eyes Bilateral: positive: Normal inspection, PERRL, EOMI, No lid inflammation, Conjunctivae nml, No scleral icterus ENT: positive: Other (The patient will not open his mouth enough for me to examine it.) Neck: positive: Nml inspection, Thyroid nml, No JVD, Trachea midline. negative : Thyromegaly Respiratory: positive: Chest non-tender, No respiratory distress, Breath sounds nml. negative: Wheezes, Rales, Rhonchi Cardiovascular: positive: Regular rate & rhythm, No murmur, No gallop Peripheral Pulses: positive: 1+ Abdomen: positive: Non-tender, No organomegaly, Nml bowel sounds, No distention. negative: Guarding, Rebound Back: positive: Nml inspection. negative: CVA tenderness (R), CVA tenderness (L ) Skin: positive: Color nml, No rash, Warm, Dry. negative: Cyanosis Extremities: positive: Non-tender, No pedal edema. negative: Full ROM, Nml appearance, Calf tenderness Neurologic/Psychiatric: positive: Oriented x3, Motor nml, Other (Patient has severe pain from trigeminal neuralgia at this time.). negative: CN's nml (2-12) , Sensation nml, Mood/affect nml - LABS Result Diagrams: 11/21/17 18:29 11/21/17 18:10 - FOLLOW UP Follow Up: Follow-up with your surgeon As scheduled. You will be receiving TPN at home while you are awaiting your surgery to help keep you strong. You should see full effect from the methadone in 3-4 days. - TIME SPENT Time Spent in Discharge (Minutes): 40
== END 2017-11-22 19:00 | disposition home or self-care (01) ==
LOC: ED 16:47 → OBS 18:55
PROVIDERS: ADMIT Hospitalist; ATTEND Hospitalist
DX: G50.0 Trigeminal neuralgia (principal); E86.0 Dehydration; G35 Multiple sclerosis; R32 Unspecified urinary incontinence; E46 Unspecified protein-calorie malnutrition; Z68.25 Body mass index [BMI] 25.0-25.9, adult; A69.20 Lyme disease, unspecified; Z99.3 Dependence on wheelchair; Z79.891 Long term (current) use of opiate analgesic; Z79.899 Other long term (current) drug therapy; Z87.11 Personal history of peptic ulcer disease
CPT/HCPCS: 36569; 80053; 83690; 83735; 84100; 85025; 96361; 96374; 96375; 96376; 99283; 99285; A9270; C1751; G0378; J1170; 71045

== ENCOUNTER 2017-11-22 19:04 | Outpatient (CLI) | payer MEDICAID | END 2017-11-22 19:05 | disposition home or self-care (01) | LOC: EMS 19:04 | PROVIDERS: ATTEND Surgery | DX: G35 Multiple sclerosis (principal); R51 Headache; Z74.01 Bed confinement status | CPT/HCPCS: A0425; A0428 ==

== ENCOUNTER 2017-12-10 08:00 | Outpatient (CLI) | payer MEDICAID ==
[2017-12-10 16:18] LABS: BILIRUBIN,URINE NEGATIVE (NEGATIVE); GLUCOSE, URINE (UA) NEGATIVE (NEGATIVE); KETONES,URINE (UA) NEGATIVE (NEGATIVE); LEUKOCYTE ESTERASE, URINE LARGE (NEGATIVE); NITRITE,URINE NEGATIVE (NEGATIVE); OCCULT BLOOD,URINE MODERATE (NEGATIVE); PH,URINE 6.5 PH (5.0-7.5); PROTEIN,URINE 100 mg/dL (NEGATIVE); UROBILINOGEN,URINE 0.2 (NORMAL) E.U./dL (NORMAL)
[2017-12-10 16:22] LABS: CLARITY,URINE CLOUDY (CLEAR)
[2017-12-10 16:23] LABS: WBC CLUMPS,URINE PRESENT
[2017-12-10 16:24] LABS: BACTERIA,URINE Moderate /HPF (None Seen); SQUAMOUS EPITHELIAL CELL,UR FEW Squamous (<= Few)
== END 2017-12-10 08:01 | disposition home or self-care (01) ==
LOC: LAB.R 08:00
PROVIDERS: ATTEND Neurological Surgery
DX: G35 Multiple sclerosis (principal)
CPT/HCPCS: 81001; 81003; 87077; 87086

== ENCOUNTER 2017-12-25 08:00 | Outpatient (CLI) | payer MEDICAID ==
[2017-12-25 10:24] LABS: BILIRUBIN,URINE NEGATIVE (NEGATIVE); GLUCOSE, URINE (UA) NEGATIVE (NEGATIVE); KETONES,URINE (UA) NEGATIVE (NEGATIVE); LEUKOCYTE ESTERASE, URINE LARGE (NEGATIVE); NITRITE,URINE NEGATIVE (NEGATIVE); OCCULT BLOOD,URINE TRACE-INTA (NEGATIVE); PH,URINE 5.5 PH (5.0-7.5); PROTEIN,URINE NEGATIVE (NEGATIVE); UROBILINOGEN,URINE 0.2 (NORMAL) E.U./dL (NORMAL)
[2017-12-25 10:31] LABS: CLARITY,URINE CLEAR (CLEAR)
[2017-12-25 10:36] LABS: BACTERIA,URINE Rare /HPF (None Seen); RBC,URINE 0-5 /HPF (0-5); SQUAMOUS EPITHELIAL CELL,UR RARE Squamous (<= Few)
== END 2017-12-25 08:01 | disposition home or self-care (01) ==
LOC: LAB.R 08:00
PROVIDERS: ATTEND Nurse Practitioner Family
DX: Z87.440 Personal history of urinary (tract) infections (principal)
CPT/HCPCS: 81001; 87086

== ENCOUNTER 2018-01-08 12:06 | Outpatient (CLI) | payer MEDICAID ==
[2018-01-08 18:26] LABS: BUN - BLOOD UREA NITROGEN 19 mg/dL (6-20); CALCIUM 9.3 mg/dL (8.5-10.3); CARBON DIOXIDE - CO2 24 mmol/L (21-32); CHLORIDE 103 mmol/L (101-111); CREATININE 0.6 mg/dL (0.6-1.2); GFR - MDRD 136 (>89); GLUCOSE 121 mg/dL (70-100); SODIUM 135 mmol/L (135-145)
[2018-01-08 18:43] LABS: CRP - C-REACTIVE PROTEIN < 1.0 mg/dL (0-1.0)
== END 2018-01-08 12:07 | disposition home or self-care (01) ==
LOC: LAB.F 12:06
PROVIDERS: ATTEND Nurse Practitioner Family
DX: Z00.01 Encounter for general adult medical examination with abnormal findings (principal)
CPT/HCPCS: 36415; 80048; 86140

== ENCOUNTER 2018-03-09 11:51 | Outpatient (CLI) | payer MEDICAID | END 2018-03-09 11:52 | disposition home or self-care (01) | LOC: DI.S 11:51 | PROVIDERS: ATTEND Nurse Practitioner Family | DX: C61 Malignant neoplasm of prostate (principal); R05 Cough | CPT/HCPCS: 36415; 84153 ==

== ENCOUNTER 2018-03-09 13:15 | Emergency (ER) | payer MEDICAID ==
[2018-03-09] MEDS ORDERED: SODIUM CHLORIDE 0.9% 1,000 ML IV ONE (13:44)
--- NOTE | 2018-03-09 13:48 | ED Physician Documentation ---
PD HPI CHEST PAIN - Stated complaint Stated Complaint: CHEST PX/SOA - Chief complaint Chief Complaint: Resp - History obtained from History obtained from: Patient, Family () - History of Present Illness Timing - onset: Other (He has had chest congestion with cough productive of yellow sputum for several days. He denies shortness of breath but the thinks he has been short of breath and he is weaker than normal. He has MS and is usually wheelchair bound but can sit up in transfer without assistance and right now he needs assistance with he has not been febrile. He was referred to the office for further evaluation and treatment for potential clinical pneumonia.) Review of Systems Constitutional: reports: Fatigue. denies: Fever, Chills Nose: denies: Rhinorrhea / runny nose, Congestion Throat: denies: Sore throat Cardiac: denies: Chest pain / pressure, Palpitations Respiratory: reports: Dyspnea, Cough GI: denies: Abdominal Pain PD PAST MEDICAL HISTORY - Past Medical History Cardiovascular: None Respiratory: None Endocrine/Autoimmune: None GI: Ulcers : Incontinence HEENT: None Psych: None Musculoskeletal: None Derm: None - Past Surgical History Past Surgical History: Yes General: Other Ortho: Shoulder arthroplasty, Other - Present Medications Home Medications: Ambulatory Orders Medication Instructions Recorded Confirmed Cyclobenzaprine HCl 10 mg PO TID PRN 10/11/17 11/21/17 Gabapentin 300 mg PO TID PRN 10/11/17 11/21/17 Oxycodone HCl/Acetaminophen 1 each PO Q6H PRN #20 tablet 11/11/17 11/21/17 [Percocet 5-325 mg Tablet] Tamsulosin [Flomax] 0.4 mg PO DAILY 11/21/17 11/21/17 carBAMazepine [Carbamazepine] 200 mg PO 0300,0900,1500,2100 11/21/17 11/21/17 Methadone 5 mg PO TID PRN #42 tablet 11/22/17 Doxycycline Hyclate 100 mg PO BID #20 tablet 03/09/18 - Allergies Allergies/Adverse Reactions: Allergies Allergy/AdvReac Type Severity Reaction Status Date / Time No Known Drug Allergies Allergy Verified 03/09/18 13:40 - Social History Does the pt smoke?: No Smoking Status: Never smoker Does the pt drink ETOH?: Yes Does the pt have substance abuse?: No - Immunizations Immunizations are current?: Yes - POLST Patient has POLST: No POLST Status: Full Code PD ED PE NORMAL - Vitals Vital signs reviewed: Yes - General General: Alert and oriented X 3, No acute distress - HEENT HEENT: PERRL, EOMI, Ears normal - Neck Neck: Supple, no meningeal sign, No bony TTP - Cardiac Cardiac: Other (tachycardic, no murmur) - Respiratory Respiratory: No respiratory distress, Other (bilateral rhonchi at bases, L>R) - Abdomen Abdomen: Soft, Non tender - Back Back: No CVA TTP, No spinal TTP - Derm Derm: Normal color, Warm and dry - Extremities Extremities: No edema, No calf tenderness / cord - Neuro Neuro: Alert and oriented X 3, Normal speech - Psych Psych: Normal mood, Normal affect Results - Vitals Vitals: Vital Signs - 24 hr 03/09/18 03/09/18 13:18 14:10 Temperature 37.2 C 36.6 C Heart Rate 117 H 117 H Respiratory 22 12 Rate Blood Pressure 154/100 H 154/100 H O2 Saturation 95 94 Oxygen O2 Source Room air - EKG (time done) 1327 Rate: Rate (enter#) (118) Rhythm: Sinus tachycardia [place]: Normal QRS: LVH Ischemia: Other (WILLIAM in III>II, to me more c/w strain. This is not changed from prior on 02/26/16.) Computer interpretation: Disagree with computer (I do not feel c/w STEMI) - Labs Labs: Laboratory Tests 03/09/18 03/09/18 03/09/18 14:45 14:45 14:45 WBC 13.0 H RBC 4.68 L Hgb 14.2 Hct 41.4 L MCV 88.4 MCH 30.4 MCHC 34.4 RDW 12.6 Plt Count 280 MPV 7.0 L Neut # (Auto) 10.0 H Lymph # (Auto) 1.8 [place] # (Auto) 1.0 Eos # (Auto) 0.1 Baso # (Auto) 0.1 Absolute Nucleated RBC 0.00 Nucleated RBC % 0.0 Sodium 132 L Potassium 4.0 Chloride 99 L Carbon Dioxide 26 Anion Gap 7.0 BUN 19 Creatinine 0.6 Estimated GFR (MDRD) 136 Glucose 162 H Lactic Acid Calcium 9.0 Total Bilirubin 0.6 AST 20 ALT 33 Alkaline Phosphatase 100 Troponin I < 0.04 Total Protein 7.7 Albumin 3.7 Globulin 4.0 Albumin/Globulin Ratio 0.9 L Lipase 27 03/09/18 14:45 WBC RBC Hgb Hct MCV MCH MCHC RDW Plt Count MPV Neut # (Auto) Lymph # (Auto) [place] # (Auto) Eos # (Auto) Baso # (Auto) Absolute Nucleated RBC Nucleated RBC % Sodium Potassium Chloride Carbon Dioxide Anion Gap BUN Creatinine Estimated GFR (MDRD) Glucose Lactic Acid 1.0 Calcium Total Bilirubin AST ALT Alkaline Phosphatase Troponin I Total Protein Albumin Globulin Albumin/Globulin Ratio Lipase PD MEDICAL DECISION MAKING - ED course ED course: 63-year-old gentleman with multiple health issues presents with bronchitis versus pneumonia. His chest x-ray is clear despite his lung sounds. He is a modestly elevated white blood cell counts, the other labs are pretty much stable. He given his underlying disease he was treated with antibiotics for bronchitis. Feeling better after IV fluids. wanted to take him home. Departure - Departure Disposition: 01 Home, Self Care Clinical Impression: Bronchitis, General weakness, Fatigue due to treatment Condition: Stable Record reviewed to determine appropriate education?: Yes Instructions: Bronchitis Acute Dc Prescriptions: Doxycycline Hyclate 100 mg PO BID #20 tablet Comments: Drink plenty of fluids, return anytime if worsening or if new symptoms develop. Follow-up with your doctor in 2-3 days for recheck.
--- NOTE | 2018-03-09 14:25 | XRAY Preliminary Report ---
Exam: XR CHEST 2 VIEW X-RAY IMPRESSION: Clear lungs. [facility] SITE ID: [id number]
--- NOTE | 2018-03-09 14:25 | XRAY Report ---
EXAM: CHEST RADIOGRAPHY EXAM DATE: 03/09/2018 02:04 PM. CLINICAL HISTORY: Cough. COMPARISON: 11/22/2017. TECHNIQUE: 2 views. FINDINGS: Lungs/Pleura: No focal opacities evident. No pleural effusion. No pneumothorax. Normal volumes. Mediastinum: Heart and mediastinal contours are unremarkable. Other: Tip of PICC line overlies mid upper SVC. IMPRESSION: Clear lungs. [facility] Referring Provider Line: [phone] SITE ID: [id number]
[2018-03-09 14:52] LABS: BASOPHILS # (AUTO) 0.1 10^3/uL (0.0-0.1); BASOPHILS % (AUTO) 0.8 %; EOSINOPHILS # (AUTO) 0.1 10^3/uL (0.0-0.7); EOSINOPHILS % (AUTO) 0.9 %; HGB - HEMOGLOBIN 14.2 g/dL (14.0-18.0); LYMPHOCYTES # (AUTO) 1.8 10^3/uL (1.5-3.5); LYMPHOCYTES % (AUTO) 13.5 %; MEAN CORPUSCULAR HEMOGLOBIN 30.4 pg (27.0-31.0); MEAN CORPUSCULAR HGB CONC 34.4 g/dL (32.0-36.0); MEAN CORPUSCULAR VOLUME 88.4 fL (80.0-94.0); MONOCYTES % (AUTO) 8.1 %; NEUTROPHILS % (AUTO) 76.7 %; PLT - PLATELET COUNT 280 10^3/uL (130-450); RED BLOOD COUNT 4.68 10^6/uL (4.70-6.10); RED CELL DISTRIBUTION WIDTH 12.6 % (12.0-15.0)
[2018-03-09 15:08] LABS: ALBUMIN 3.7 g/dL (3.2-5.5); ALBUMIN/GLOBULIN RATIO 0.9 (1.0-2.2); BILIRUBIN,TOTAL 0.6 mg/dL (0.2-1.0); CREATININE 0.6 mg/dL (0.6-1.2); TOTAL PROTEIN 7.7 g/dL (6.7-8.2)
[2018-03-09] MEDS ORDERED: DOXYCYCLINE 100 MG TABLET PO STA (15:13)
[2018-03-09] MEDS ORDERED: LACTATED RINGERS 1,000 ML IV ONE (16:11)
[2018-03-09 16:38] VITALS: BP 157/107
== END 2018-03-09 17:38 | disposition home or self-care (01) ==
LOC: ED 13:15
DX: J40 Bronchitis, not specified as acute or chronic (principal); R53.1 Weakness; R53.83 Other fatigue; G35 Multiple sclerosis; Z87.11 Personal history of peptic ulcer disease; Z99.3 Dependence on wheelchair; C61 Malignant neoplasm of prostate; R05 Cough
CPT/HCPCS: 36415; 71046; 80053; 83605; 83690; 84153; 84484; 85025; 87040; 93005; 96360; 96361; 99283; 99284; A9270; J7120

== ENCOUNTER 2018-07-17 08:00 | Outpatient (CLI) | payer MEDICAID ==
[2018-07-17 11:08] LABS: BILIRUBIN,URINE NEGATIVE (NEGATIVE); GLUCOSE, URINE (UA) NEGATIVE (NEGATIVE); KETONES,URINE (UA) NEGATIVE (NEGATIVE); LEUKOCYTE ESTERASE, URINE SMALL (NEGATIVE); NITRITE,URINE NEGATIVE (NEGATIVE); OCCULT BLOOD,URINE TRACE-INTA (NEGATIVE); PROTEIN,URINE NEGATIVE (NEGATIVE); UROBILINOGEN,URINE 0.2 (NORMAL) E.U./dL (NORMAL)
[2018-07-17 11:11] LABS: CLARITY,URINE CLEAR (CLEAR)
[2018-07-17 11:20] LABS: BACTERIA,URINE Rare /HPF (None Seen); RBC,URINE 0-5 /HPF (0-5); SQUAMOUS EPITHELIAL CELL,UR NONE SEEN (<= Few)
== END 2018-07-17 08:01 | disposition home or self-care (01) ==
LOC: LAB.R 08:00
DX: N31.9 Neuromuscular dysfunction of bladder, unspecified (principal)
CPT/HCPCS: 81001; 87077; 87086; 87181

== ENCOUNTER 2018-10-29 10:07 | Outpatient (CLI) | payer MEDICAID ==
[2018-10-29 17:38] LABS: BASOPHILS % (AUTO) 0.7 %; EOSINOPHILS # (AUTO) 0.1 10^3/uL (0.0-0.7); EOSINOPHILS % (AUTO) 1.7 %; HGB - HEMOGLOBIN 15.5 g/dL (14.0-18.0); LYMPHOCYTES # (AUTO) 2.4 10^3/uL (1.5-3.5); LYMPHOCYTES % (AUTO) 35.4 %; MEAN CORPUSCULAR HEMOGLOBIN 29.7 pg (27.0-31.0); MEAN CORPUSCULAR HGB CONC 32.7 g/dL (32.0-36.0); MEAN CORPUSCULAR VOLUME 90.8 fL (80.0-94.0); MEAN PLATELET VOLUME 7.6 fL (7.4-11.4); MONOCYTES # (AUTO) 0.4 10^3/uL (0.0-1.0); MONOCYTES % (AUTO) 6.5 %; NEUTROPHILS # (AUTO) 3.7 10^3/uL (1.5-6.6); NEUTROPHILS % (AUTO) 55.7 %; PLT - PLATELET COUNT 281 10^3/uL (130-450); RED BLOOD COUNT 5.23 10^6/uL (4.70-6.10); RED CELL DISTRIBUTION WIDTH 13.4 % (12.0-15.0); WHITE BLOOD COUNT 6.6 x10^3/uL (4.8-10.8)
[2018-10-29 19:01] LABS: ALBUMIN 3.9 g/dL (3.2-5.5); ALBUMIN/GLOBULIN RATIO 1.3 (1.0-2.2); ALKALINE PHOSPHATASE 139 IU/L (42-121); ALT ALANINE AMINOTRANSFERASE 92 IU/L (10-60); AST ASPARTATE AMINOTRANSFERASE 41 IU/L (10-42); BILIRUBIN,TOTAL 0.6 mg/dL (0.2-1.0); BUN - BLOOD UREA NITROGEN 14 mg/dL (6-20); CALCIUM 9.1 mg/dL (8.5-10.3); CARBON DIOXIDE - CO2 29 mmol/L (21-32); CHLORIDE 103 mmol/L (101-111); CHOL/HDL RATIO 7.4 (<5.0); CHOLESTEROL 207 mg/dL; CREATININE 0.8 mg/dL (0.6-1.2); GFR - MDRD 97 (>89); GLUCOSE 194 mg/dL (70-100); HDL CHOLESTEROL 28 mg/dL; SODIUM 139 mmol/L (135-145)
[2018-10-29 19:25] LABS: LDL CHOLESTEROL,DIRECT 119 mg/dL; LDLD/HDL RATIO 4.3 (<3.6)
== END 2018-10-29 10:08 | disposition home or self-care (01) ==
LOC: LAB.F 10:07
PROVIDERS: ATTEND Nurse Practitioner Family
DX: I10 Essential (primary) hypertension (principal); Z13.220 Encounter for screening for lipoid disorders
CPT/HCPCS: 36415; 80053; 80061; 83721; 84443; 85025

== ENCOUNTER 2018-11-26 14:42 | Outpatient (CLI) | payer MEDICAID ==
[2018-11-26 19:05] LABS: HB2 TOTAL 17.9 g/dL; HEMOGLOBIN A1C 1.33 g/dL; HEMOGLOBIN A1C % 8.9 % (4.6-6.2)
== END 2018-11-26 14:43 | disposition home or self-care (01) ==
LOC: LAB.F 14:42
PROVIDERS: ATTEND Nurse Practitioner Family
DX: R73.9 Hyperglycemia, unspecified (principal)
CPT/HCPCS: 36415; 83036

== ENCOUNTER 2019-02-25 15:10 | Outpatient (CLI) | payer MEDICARE ==
[2019-02-25 18:10] LABS: CREATININE,URINE 21.6 mg/dL; MICROALBUM/CREATININE RATIO,UR 74.1 ug/mg (<30.0); MICROALBUMIN,URINE 1.6 mg/dL (0-300.0)
[2019-02-25 18:11] LABS: HB2 TOTAL 14.7 g/dL; HEMOGLOBIN A1C 0.58 g/dL; HEMOGLOBIN A1C % 5.8 % (4.6-6.2)
== END 2019-02-25 15:11 | disposition home or self-care (01) ==
LOC: LAB.F 15:10
PROVIDERS: ATTEND Nurse Practitioner Family
DX: E11.9 Type 2 diabetes mellitus without complications (principal)
CPT/HCPCS: 36415; 82043; 82570; 83036

== ENCOUNTER 2019-03-23 19:32 | Inpatient (IN) | payer MEDICARE, OTHER ==
[2019-03-23 20:14] LABS: BILIRUBIN,URINE NEGATIVE (NEGATIVE); CLARITY,URINE CLOUDY (CLEAR); GLUCOSE, URINE (UA) NEGATIVE (NEGATIVE); KETONES,URINE (UA) TRACE mg/dL (NEGATIVE); LEUKOCYTE ESTERASE, URINE MODERATE (NEGATIVE); NITRITE,URINE POSITIVE (NEGATIVE); OCCULT BLOOD,URINE MODERATE (NEGATIVE); PH,URINE 5.5 PH (5.0-7.5); PROTEIN,URINE 30 mg/dL (NEGATIVE); UROBILINOGEN,URINE 0.2 (NORMAL) E.U./dL (NORMAL)
[2019-03-23 20:24] LABS: BACTERIA,URINE Few /HPF (None Seen); SQUAMOUS EPITHELIAL CELL,UR NONE SEEN (<= Few)
[2019-03-23 20:28] LABS: BASOPHILS # (AUTO) 0.1 10^3/uL (0.0-0.1); BASOPHILS % (AUTO) 0.3 %; EOSINOPHILS # (AUTO) 0.1 10^3/uL (0.0-0.7); EOSINOPHILS % (AUTO) 0.3 %; HGB - HEMOGLOBIN 14.7 g/dL (14.0-18.0); LYMPHOCYTES # (AUTO) 2.8 10^3/uL (1.5-3.5); MEAN CORPUSCULAR HEMOGLOBIN 29.4 pg (27.0-31.0); MEAN CORPUSCULAR HGB CONC 31.5 g/dL (32.0-36.0); MEAN CORPUSCULAR VOLUME 93.4 fL (80.0-94.0); MEAN PLATELET VOLUME 8.9 fL (7.4-11.4); MONOCYTES # (AUTO) 1.1 10^3/uL (0.0-1.0); MONOCYTES % (AUTO) 5.6 %; NEUTROPHILS # (AUTO) 15.9 10^3/uL (1.5-6.6); NEUTROPHILS % (AUTO) 79.2 %; PLT - PLATELET COUNT 290 10^3/uL (130-450); RED CELL DISTRIBUTION WIDTH 12.5 % (12.0-15.0); WHITE BLOOD COUNT 20.1 x10^3/uL (4.8-10.8)
[2019-03-23 20:40] LABS: ALBUMIN 4.3 g/dL (3.2-5.5); ALBUMIN/GLOBULIN RATIO 1.2 (1.0-2.2); BILIRUBIN,TOTAL 0.6 mg/dL (0.2-1.0); CALCIUM 9.7 mg/dL (8.5-10.3); CREATININE 0.9 mg/dL (0.6-1.2); MAGNESIUM 2.4 mg/dL (1.7-2.8); TOTAL PROTEIN 7.8 g/dL (6.7-8.2)
[2019-03-23] MEDS ORDERED: SODIUM CHLORIDE 0.9% 1,000 ML IV ONE (20:41)
[2019-03-23] MEDS ORDERED: cefTRIAXone 1 GM in SODIUM CHLORIDE 0.9% MINIBAG 100 ML IV STA (20:42)
[2019-03-23] MEDS ORDERED: GENTAMICIN IV STA (20:42)
[2019-03-23] MEDS ORDERED: SODIUM CHLORIDE 0.9% IV STA (20:42)
--- NOTE | 2019-03-23 20:48 | ED Physician Documentation ---
PD HPI MALE - Stated complaint Stated Complaint: FEVER,LOWER BACK PX, WEAK - Chief complaint Chief Complaint: UTI - History obtained from History obtained from: Patient, Family - History of Present Illness Timing - onset: Yesterday Timing - duration: Days (2) Timing - details: Gradual onset, Still present Associated symptoms: Indwelling catheter PD HPI MALE CONTRIB FACTORS: Indwelling catheter Similar symptoms before: Diagnosis (urosepsis) Recently seen: Not recently seen - Additional information Additional information: 64-year-old male with history of MS with an indwelling suprapubic Dowd catheter has developed weakness beginning yesterday and today he is developed flank pain fever and slurred speech. He is not strong enough to sit up in the bed today by himself. Usually is able to get himself up in the morning and help with the transfer. Review of Systems Constitutional: reports: Fever, Fatigue Eyes: denies: Decreased vision Ears: denies: Ear pain Nose: reports: Congestion. denies: Rhinorrhea / runny nose Throat: denies: Sore throat Cardiac: denies: Chest pain / pressure, Palpitations Respiratory: denies: Dyspnea, Cough GI: denies: Abdominal Pain, Nausea, Vomiting : reports: Dowd Problem (cloudy urine from suprapubic cath) Skin: denies: Rash Musculoskeletal: reports: Back pain. denies: Neck pain, Extremity pain Neurologic: reports: Generalized weakness, Difficulty speaking (mild dysarthria), Confused (mild). denies: Focal weakness, Numbness PD PAST MEDICAL HISTORY - Past Medical History Past Medical History: Yes Cardiovascular: None Respiratory: None Neuro: Multiple sclerosis Endocrine/Autoimmune: Type 2 diabetes GI: Ulcers : Incontinence, Indwelling catheter HEENT: None Psych: None Musculoskeletal: None Derm: None Other Past Medical History: enrrique morales - Past Surgical History Past Surgical History: Yes General: Other Ortho: Shoulder arthroplasty, Other - Present Medications Home Medications: Ambulatory Orders Medication Instructions Recorded Confirmed Cyclobenzaprine HCl 10 mg PO TID PRN 10/11/17 03/23/19 Gabapentin 300 mg PO TID PRN 10/11/17 03/23/19 Lisinopril 5 mg PO DAILY 01/05/19 03/23/19 Metformin HCl 500 mg PO BID 01/05/19 03/23/19 - Allergies Allergies/Adverse Reactions: Allergies Allergy/AdvReac Type Severity Reaction Status Date / Time No Known Drug Allergies Allergy Verified 03/09/18 13:40 - Social History Does the pt smoke?: No Smoking Status: Never smoker Does the pt drink ETOH?: Yes Does the pt have substance abuse?: No - Immunizations Immunizations are current?: Yes - POLST Patient has POLST: No POLST Status: Full Code PD ED PE NORMAL - Vitals Vital signs reviewed: Yes (tachy and hypertensive) - General General: Alert and oriented X 3, No acute distress, Well developed/nourished, Other (The patient responds well appears oriented has some lid ptosis more than usual. (Looks tired)) - HEENT HEENT: Atraumatic, PERRL, EOMI - Neck Neck: Supple, no meningeal sign, No bony TTP - Cardiac Cardiac: No murmur, Other (tachy to 110) - Respiratory Respiratory: No respiratory distress, Clear bilaterally - Abdomen Abdomen: Soft, Non tender - Back Back: Other (bilateral CVA tenderness) - Derm Derm: Normal color, Warm and dry, No rash - Extremities Extremities: No deformity, No edema, No calf tenderness / cord - Neuro Neuro: Alert and oriented X 3, tourist agent 2-12 intact, Normal speech Eye Opening: Spontaneous Motor: Obeys Commands Verbal: Oriented GCS Score: 15 - Psych Psych: Normal mood, Normal affect Results - Vitals Vitals: Vital Signs - 24 hr 03/23/19 03/23/19 03/23/19 19:39 20:21 20:30 Temperature 37 C 38.3 C H Heart Rate 110 H 109 H 110 H Respiratory 18 18 14 Rate Blood Pressure 131/81 H 145/96 H 144/86 H O2 Saturation 99 97 100 03/23/19 21:00 Temperature Heart Rate 110 H Respiratory 14 Rate Blood Pressure 139/87 H O2 Saturation 100 Oxygen O2 Source Room air - Labs Labs: Laboratory Tests 03/23/19 03/23/19 03/23/19 20:05 20:24 20:24 WBC 20.1 H RBC 5.00 Hgb 14.7 Hct 46.7 MCV 93.4 MCH 29.4 MCHC 31.5 L RDW 12.5 Plt Count 290 MPV 8.9 Neut # (Auto) 15.9 H Lymph # (Auto) 2.8 [place] # (Auto) 1.1 H Eos # (Auto) 0.1 Baso # (Auto) 0.1 Absolute Nucleated RBC 0.00 Nucleated RBC % 0.0 Sodium 141 Potassium 4.1 Chloride 103 Carbon Dioxide 25 Anion Gap 13.0 BUN 13 Creatinine 0.9 Estimated GFR (MDRD) 85 L Glucose 102 H Lactic Acid Calcium 9.7 Magnesium 2.4 Total Bilirubin 0.6 AST 23 ALT 36 Alkaline Phosphatase 97 Total Protein 7.8 Albumin 4.3 Globulin 3.5 Albumin/Globulin Ratio 1.2 Lipase 27 Urine Color YELLOW Urine Clarity CLOUDY Urine pH 5.5 Ur Specific [place] 1.025 Urine Protein 30 H Urine Glucose (UA) NEGATIVE Urine Ketones TRACE Urine Occult Blood MODERATE H Urine Nitrite POSITIVE H Urine Bilirubin NEGATIVE Urine Urobilinogen 0.2 (NORMAL) Ur Leukocyte Esterase MODERATE H Urine RBC 11-25 H Urine WBC >25 H Ur Squamous Epith Cells NONE SEEN Urine Bacteria Few Ur Microscopic Review INDICATED Urine Culture Comments INDICATED 03/23/19 20:24 WBC RBC Hgb Hct MCV MCH MCHC RDW Plt Count MPV Neut # (Auto) Lymph # (Auto) [place] # (Auto) Eos # (Auto) Baso # (Auto) Absolute Nucleated RBC Nucleated RBC % Sodium Potassium Chloride Carbon Dioxide Anion Gap BUN Creatinine Estimated GFR (MDRD) Glucose Lactic Acid 2.1 Calcium Magnesium Total Bilirubin AST ALT Alkaline Phosphatase Total Protein Albumin Globulin Albumin/Globulin Ratio Lipase Urine Color Urine Clarity Urine pH Ur Specific [place] Urine Protein Urine Glucose (UA) Urine Ketones Urine Occult Blood Urine Nitrite Urine Bilirubin Urine Urobilinogen Ur Leukocyte Esterase Urine RBC Urine WBC Ur Squamous Epith Cells Urine Bacteria Ur Microscopic Review Urine Culture Comments Procedures - IVC sono (time) 2238 Bedside IVC sono: IVC measures (cm) (1.2), IVC collapsed c insp (cm) (complete), Dehydration (est 1 liter deficit) PD MEDICAL DECISION MAKING - ED course Complexity details: reviewed old records, reviewed results, re-evaluated patient, considered differential, d/w patient, d/w family ED course: 64-year-old male with an indwelling Dowd catheter suprapubic catheter has developed cloudy urine fever and mildly altered level of consciousness with fatigue and weakness as well as flank pain. The patient arrives to the emergency department febrile tachycardic with white blood cell count elevated to 20.1. IV is begun he is administered saline Rocephin and gentamicin. He has had prior urinary tract infection with Pseudomonas. Departure - Departure Disposition: 66 [facility] DC/Xfer Clinical Impression: SIRS (systemic inflammatory response syndrome) UTI (urinary tract infection) Qualifiers: Urinary tract infection type: catheter-associated UTI Indwelling urinary catheter type: cystostomy catheter Encounter type: initial encounter Qualified Code(s): T83.510A - Infection and inflammatory reaction due to cystostomy catheter, initial encounter
[2019-03-23] MEDS ORDERED: CEFEPIME 1 GM in SODIUM CHLORIDE 0.9% MINIBAG 100 ML IV STA ×2 (21:08→21:24)
[2019-03-23] MEDS ORDERED: SODIUM CHLORIDE FLUSH 0.9% 10 ML SYRINGE IVP PRN (21:12)
[2019-03-23] MEDS ORDERED: CYCLOBENZAPRINE 10 MG TABLET PO STA (21:22)
[2019-03-23] MEDS ORDERED: CEFEPIME 2 GM in SODIUM CHLORIDE 0.9% MINIBAG 100 ML IV SCH (22:00)
--- NOTE | 2019-03-23 22:41 | HISTORY & PHYSICAL EXAMINATION ---
Chief Complaint - Chief Complaint Chief Complaint: fever, weakness, slurred speech History of Present Illness - Admitted From Admitted From:: [facility] - History Obtained From Records Reviewed: yes History obtained from: patient and family - History of Present Illness HPI Comment/Other: Patient seen on 03/23/19 at 2220pm Patient is a 64 y/o M with Hx of MS significantly affecting his left side and as a result of which he is wheel chair bound. He also has a suprapubic catheter. He presented to the ED with acute onset of fever, slurred speech, weakness/fatigue. He was unable to assist in transfer unto his wheelchair. As a result he fell during transfer. It was witnessed and he did not black out. He has also been having lower back pain. His symptoms began yesterday but got worse today. He has history of Pseudomonas infections in the past with his last UTI being October of last year. He has a suprapubic catheter which is due for changing in 4 days. It was flushed by his earlier. He sees Dr Genet Morgan (urologist) at . Work up in the ED showed a WBC of 18, and a UA strongly suggestive of a UTI. He is also tachycardic with a pulse in the 110's. He denies chest pain, JAILYN, abd pain, nausea or vomiting. History - Past Medical History Cardiovascular: reports: None Respiratory: reports: None Neuro: reports: Multiple sclerosis Endocrine/Autoimmune: reports: Type 2 diabetes GI: reports: Ulcers : reports: Incontinence, Indwelling catheter HEENT: reports: None Psych: reports: None Musculoskeletal: reports: None Derm: reports: None MRSA Hx?: No Other Past Medical History: [place] dz - Past Surgical History General: reports: Other Ortho: reports: Shoulder arthroplasty, Other - Family & Social History Family History: Mother: Asthma Family History Comment/Other: Father had BPH. Mother: CHF. Brother: CAD. No family Hx of DM, MS or cancer Living arrangement: At home Living Situation: With family Social History Notes: The patient currently lives in [place] with his . He has been to her for 26 years. They also live with the patient's [id number]. The patient has a 31-year-old daughter from a previous marriage who lives in [place]. The patient [place]2 years ago from [place], [place]. The moved here because the patient's condition was getting worse and the patient's [id number] was alone after her and would be able to help out with the care of the patient. At baseline the patient is able to transfer from wheelchair to commode and wheelchair to bed but is primarily wheelchair bound. The patient has never smoked, he rarely drinks alcohol and denies any illicit drug use. - POLST Patient has POLST: No POLST Status: Full Code Meds/Allgy - Home Medications Home Medications: Ambulatory Orders Medication Instructions Recorded Confirmed Cyclobenzaprine HCl 10 mg PO TID PRN 10/11/17 03/23/19 Gabapentin 300 mg PO TID PRN 10/11/17 03/23/19 Lisinopril 5 mg PO DAILY 01/05/19 03/23/19 Metformin HCl 500 mg PO BID 01/05/19 03/23/19 - Allergies Allergies/Adverse Reactions: Allergies Allergy/AdvReac Type Severity Reaction Status Date / Time No Known Drug Allergies Allergy Verified 03/09/18 13:40 Review of Systems - Constitutional Constitutional: reports: Fatigue, Fever, Chills, Weakness - Eyes Eyes: denies: Blurred vision, Vision loss, Dipolpia - Ears, Nose & Throat Ears, Nose & Throat: denies: Nasal pain, Nasal discharge, Sore throat, Ria rseness - Cardiovascular Cariovascular: denies: Irregular heart rate, Chest pain, Edema, Lightheadedness, Syncope - Respiratory Respiratory: denies: Cough, Sputum production, Wheezing, SOB at rest, SOB with exertion - Gastrointestinal Gastrointestinal: denies: Abdominal pain, Constipation, Diarrhea, Change in bowel habits, Black stools, Nausea, Vomiting - Genitourinary Genitourinary: reports: Other (Sprapubic catheter) - Musculoskeletal Musculoskeletal: reports: Back pain - Integumentary Integumentary: denies: Rash, Pruritis, Lesions, Dryness - Neurological Neurological: reports: General weakness. denies: Focal weakness, Headache, Dizziness, Numbness, Memory problems - Psychiatric Psychiatric: denies: Depression, Anxiety - Endocrine Endocrine: denies: Polydypsia, Polyphagia - Hematologic/Lymphatic Hematologic/Lymphatic: denies: Anemia, Bruising, Petechiae Prior Level of Functionality: Patient is wheelchair bound due to MS. He usually gets assistance transferring into his wheelchair Exam - Vital Signs Vital Signs: Vital Signs x48h Temp Pulse Resp BP Pulse Ox 03/23/19 21:30 38 C H 114 H 14 150/79 H 100 03/23/19 21:00 110 H 14 139/87 H 100 03/23/19 20:30 38.3 C H 110 H 14 144/86 H 100 03/23/19 20:21 109 H 18 145/96 H 97 03/23/19 19:39 37 C 110 H 18 131/81 H 99 - Physical Exam General Appearance: positive: Alert, Mild distress Eyes Bilateral: positive: Normal inspection, PERRL, EOMI ENT: positive: ENT inspection nml. negative: No signs of dehydration Neck: positive: No JVD, Trachea midline Respiratory: positive: Chest non-tender, No respiratory distress, Breath sounds nml. negative: Wheezes, Rales, Rhonchi Cardiovascular: positive: No murmur, Tachycardia Abdomen: positive: Non-tender, No organomegaly, Nml bowel sounds, No distention. negative: Guarding, Rebound Back: positive: Nml inspection, CVA tenderness (R), CVA tenderness (L) Skin: positive: Warm. negative: Color nml (flushed), Skin rash Extremities: positive: Non-tender, No pedal edema Neurologic/Psychiatric: positive: Oriented x3, Weakness (left side: especially left lower extremity (chronic). due to MS) Sepsis Event Note (H) - Evaluation Current Stage of Sepsis: Sepsis Possible source of Sepsis: positive: Genitourinary - Sepsis Criteria Sepsis Criteria: Recorded Temperature greater than 38.3C or Less than 36C, Recorded Heart Rate greater than 90 bpm, WBC count greater than 12,000 or less than 4000, DISTRIBUTION CENTER ASSISTANT: altered consciousness (unrelated to primary neuro pathology), Metabolic: lactate > 2 mmol/L Conclusion/Plan - Problem List (1) Sepsis Conclusion/Plan: 2/2 UTI Previous Hx of Pseudomonas infection It is reported that patient is a colonizer. Cefepime 2g IV q12hrs started IV hydration with normal saline. Tylenol for fever. Blood and urine cultures pending Suprapubic cath due for changing in 4 days Urologist: Dr Genet Hollingsworth of (2) Hypertension Conclusion/Plan: On lisinopril (3) Type II diabetes mellitus Conclusion/Plan: Will hold metformin Low dose SSI. Accu checks Qualifiers: Diabetes mellitus shelter insulin use: without intermodal truck driver use Diabetes mellitus complication detail: with unspecified neuropathy (4) Neuropathy Conclusion/Plan: On gabapentin 300mg tid prn (5) Multiple sclerosis Conclusion/Plan: Not on any med currently - Lab Results Fish Bones: 03/23/19 20:24 03/23/19 20:24 Core Measures - Anticipated LOS I expect patient to be DC'd or transferred within 96 hours.: Yes - DVT/VTE - Prophylaxis VTE/DVT Device ordered at admit?: Yes VTE/DVT Prophylaxis med ordered at admit?: Yes
[2019-03-23] MEDS: SODIUM CHLORIDE 0.9% 1,000 ML IV SCH (23:10)
[2019-03-24] MEDS: ACETAMINOPHEN 325 MG TABLET PO PRN (02:17)
[2019-03-24] MEDS: GABAPENTIN 300 MG CAPSULE PO PRN ×3 (03:17→22:23)
[2019-03-24] MEDS: SODIUM CHLORIDE FLUSH 0.9% 10 ML SYRINGE IVP SCH ×3 (03:55→17:07)
[2019-03-24 06:16] LABS: BASOPHILS # (AUTO) 0.1 10^3/uL (0.0-0.1); BASOPHILS % (AUTO) 0.4 %; EOSINOPHILS # (AUTO) 0.1 10^3/uL (0.0-0.7); EOSINOPHILS % (AUTO) 0.5 %; HGB - HEMOGLOBIN 12.8 g/dL (14.0-18.0); LYMPHOCYTES # (AUTO) 2.1 10^3/uL (1.5-3.5); LYMPHOCYTES % (AUTO) 12.3 %; MEAN CORPUSCULAR HEMOGLOBIN 29.6 pg (27.0-31.0); MEAN CORPUSCULAR HGB CONC 32.6 g/dL (32.0-36.0); MEAN CORPUSCULAR VOLUME 90.8 fL (80.0-94.0); MEAN PLATELET VOLUME 8.8 fL (7.4-11.4); MONOCYTES # (AUTO) 0.9 10^3/uL (0.0-1.0); MONOCYTES % (AUTO) 5.3 %; NEUTROPHILS # (AUTO) 13.6 10^3/uL (1.5-6.6); NEUTROPHILS % (AUTO) 81.1 %; PLT - PLATELET COUNT 246 10^3/uL (130-450); RED BLOOD COUNT 4.33 10^6/uL (4.70-6.10); RED CELL DISTRIBUTION WIDTH 12.4 % (12.0-15.0); WHITE BLOOD COUNT 16.8 x10^3/uL (4.8-10.8)
[2019-03-24 06:26] LABS: CALCIUM 8.5 mg/dL (8.5-10.3); CREATININE 0.8 mg/dL (0.6-1.2)
[2019-03-24] MEDS: SODIUM CHLORIDE 0.9% 1,000 ML IV SCH ×2 (06:56→15:08)
[2019-03-24] MEDS ORDERED: GABAPENTIN 300 MG CAPSULE PO PRN (08:02)
[2019-03-24] MEDS: ENOXAPARIN 40 MG/0.4 ML SYRINGE SUBQ SCH (08:37)
[2019-03-24] MEDS: CYCLOBENZAPRINE 10 MG TABLET PO PRN ×2 (08:37→22:23)
[2019-03-24] MEDS: INSULIN ASPART 300 UNIT/3 ML PEN SUBQ SCH ×4 (08:40→21:02)
[2019-03-24] MEDS: POLYETHYLENE GLYCOL 3350 17 GM PACKET PO SCH (08:41)
[2019-03-24] MEDS ORDERED: ENOXAPARIN 40 MG/0.4 ML SYRINGE SUBQ SCH (09:00)
[2019-03-24] MEDS ORDERED: POLYETHYLENE GLYCOL 3350 17 GM PACKET PO SCH (09:00)
[2019-03-24] MEDS: CEFEPIME 2 GM in SODIUM CHLORIDE 0.9% MINIBAG 100 ML IV SCH ×2 (10:20→22:24)
--- NOTE | 2019-03-24 16:13 | PROVIDER PROGRESS NOTE ---
Subjective - Prog Note Date Prog Note Date: 03/24/19 Prog Note Time: 09:00 - Subjective Pt reports feeling: Improved Subjective: Asher explains that he feels much better as compared to the time of admission. He denies chest pain, nausea, vomiting, abdominal pain, a new rash, or a new cough. Current Medications - Current Medications Current Medications: Active Medications: Acetaminophen (Tylenol) 650 mg PO Q4HR PRN Cyclobenzaprine HCl (Flexeril) 10 mg PO TID PRN Enoxaparin Sodium (Lovenox) 40 mg SUBQ DAILY GAGAN Gabapentin (Neurontin) 300 mg PO TID PRN Sodium Chloride (Normal Saline 0.9%) 1,000 mls @ 125 mls/hr IV .Q8H GAGAN Cefepime HCl 2 gm/ Sodium (Chloride) 100 mls @ 200 mls/hr IV Q12H PENDING SALE TO [facility] Insulin Aspart (Novolog) 1 - 5 unit SUBQ 0800,1200,1700,2100 PENDING SALE TO [facility]; Protocol Polyethylene Glycol (Miralax) 17 gm PO DAILY PENDING SALE TO [facility] Trazodone HCl (Desyrel) 50 mg PO QPM PENDING SALE TO [facility] HOME meds: Cyclobenzaprine HCl 10 mg PO TID PRN 10/11/17 Gabapentin 600 mg PO TID 10/11/17 Lisinopril 5 mg PO DAILY 01/05/19 Metformin HCl 1,000 mg PO BIDWM 01/05/19 Objective - Vital Signs/Intake & Output Reviewed Vital Signs: Yes Vital Signs: Vital Signs x48h Temp Pulse Pulse Resp BP BP Pulse Ox 03/24/19 16:00 36.3 C L 98 16 116/76 98 03/24/19 13:00 36.4 C L 94 16 123/74 99 03/24/19 11:38 98 128/90 H Intake & Output: Intake & Output 03/21/19 03/22/19 03/23/19 03/24/19 23:59 23:59 23:59 23:59 Intake Total 1300 2890.833 Output Total 300 2800 Balance 1000 90.833 - Objective General Appearance: positive: No acute distress, Alert Eyes Bilateral: positive: PERRL Eyes: OU Conjunctivae pale ENT: positive: Pharynx nml, No signs of dehydration Neck: positive: Thyroid nml, No JVD, Trachea midline Respiratory: positive: Chest non-tender, No respiratory distress Cardiovascular: positive: Regular rate & rhythm, No gallop, Systolic murmur Peripheral Pulses: 1+ Radial (R), 1+ Radial (L) Abdomen: positive: Non-tender, Nml bowel sounds Back: positive: Nml inspection Skin: positive: No rash, Warm, Dry Extremities: positive: Non-tender, Pedal edema, Other (baseline loss of BLE function due to MS) Neurologic/Psychiatric: positive: Oriented x3, Motor nml, Weakness, Sensory loss, Slurred/abnml speech (sluggish speech today, lethargy), Depressed mood/affect, Other (baseline memory loss Baseline sensory loss to BLEs, peripheral neuropathy and loss of function of BLEs) Reflexes: Bicep (R): 3+, Bicep (L): 3+, Ankle (R): 1+, Ankle (L): 1+ - Lab Results Fish Bones: 03/25/19 04:50 03/25/19 04:50 Other Labs: Lab Results x24hrs 03/24/19 03/24/19 03/24/19 Range/Units 11:16 08:20 06:05 WBC (4.8-10.8) x10^3/uL RBC (4.70-6.10) 10^6/uL Hgb (14.0-18.0) g/dL Hct (42.0-52.0) % MCV (80.0-94.0) fL MCH (27.0-31.0) pg MCHC (32.0-36.0) g/dL RDW (12.0-15.0) % Plt Count (130-450) 10^3/uL MPV (7.4-11.4) fL Neut # (Auto) (1.5-6.6) 10^3/uL Lymph # (Auto) (1.5-3.5) 10^3/uL Nye # (Auto) (0.0-1.0) 10^3/uL Eos # (Auto) (0.0-0.7) 10^3/uL Baso # (Auto) (0.0-0.1) 10^3/uL Absolute Nucleated RBC x10^3/uL Nucleated RBC % /100WBC Sodium 138 (135-145) mmol/L Potassium 3.7 (3.5-5.0) mmol/L Chloride 106 (101-111) mmol/L Carbon Dioxide 21 (21-32) mmol/L Anion Gap 11.0 (6-13) BUN 10 (6-20) mg/dL Creatinine 0.8 (0.6-1.2) mg/dL Estimated GFR (MDRD) 97 (>89) Glucose 103 H (70-100) mg/dL POC Whole Bld Glucose 148 H 97 (70 - 100) mg/dL Lactic Acid (0.5-2.2) mmol/L Calcium 8.5 (8.5-10.3) mg/dL Magnesium (1.7-2.8) mg/dL Total Bilirubin (0.2-1.0) mg/dL AST (10-42) IU/L ALT (10-60) IU/L Alkaline Phosphatase (42-121) IU/L Total Protein (6.7-8.2) g/dL Albumin (3.2-5.5) g/dL Globulin (2.1-4.2) g/dL Albumin/Globulin Ratio (1.0-2.2) Lipase (22-51) U/L Urine Color Urine Clarity (CLEAR) Urine pH (5.0-7.5) PH Ur Specific [place] (1.002-1.030) Urine Protein (NEGATIVE) mg/dL Urine Glucose (UA) (NEGATIVE) mg/dL Urine Ketones (NEGATIVE) mg/dL Urine Occult Blood (NEGATIVE) Urine Nitrite (NEGATIVE) Urine Bilirubin (NEGATIVE) Urine Urobilinogen (NORMAL) E.U./dL Ur Leukocyte Esterase (NEGATIVE) Urine RBC (0-5) /HPF Urine WBC (0-3) /HPF Ur Squamous Epith Cells (<= Few) Urine Bacteria (None Seen) /HPF Ur Microscopic Review Urine Culture Comments 03/24/19 03/23/19 03/23/19 Range/Units 06:05 23:40 20:24 WBC 16.8 H (4.8-10.8) x10^3/uL RBC 4.33 L (4.70-6.10) 10^6/uL Hgb 12.8 L (14.0-18.0) g/dL Hct 39.3 L (42.0-52.0) % MCV 90.8 (80.0-94.0) fL MCH 29.6 (27.0-31.0) pg MCHC 32.6 (32.0-36.0) g/dL RDW 12.4 (12.0-15.0) % Plt Count 246 (130-450) 10^3/uL MPV 8.8 (7.4-11.4) fL Neut # (Auto) 13.6 H (1.5-6.6) 10^3/uL Lymph # (Auto) 2.1 (1.5-3.5) 10^3/uL Nye # (Auto) 0.9 (0.0-1.0) 10^3/uL Eos # (Auto) 0.1 (0.0-0.7) 10^3/uL Baso # (Auto) 0.1 (0.0-0.1) 10^3/uL Absolute Nucleated RBC 0.00 x10^3/uL Nucleated RBC % 0.0 /100WBC Sodium (135-145) mmol/L Potassium (3.5-5.0) mmol/L Chloride (101-111) mmol/L Carbon Dioxide (21-32) mmol/L Anion Gap (6-13) BUN (6-20) mg/dL Creatinine (0.6-1.2) mg/dL Estimated GFR (MDRD) (>89) Glucose (70-100) mg/dL POC Whole Bld Glucose (70 - 100) mg/dL Lactic Acid 0.9 2.1 (0.5-2.2) mmol/L Calcium (8.5-10.3) mg/dL Magnesium (1.7-2.8) mg/dL Total Bilirubin (0.2-1.0) mg/dL AST (10-42) IU/L ALT (10-60) IU/L Alkaline Phosphatase (42-121) IU/L Total Protein (6.7-8.2) g/dL Albumin (3.2-5.5) g/dL Globulin (2.1-4.2) g/dL Albumin/Globulin Ratio (1.0-2.2) Lipase (22-51) U/L Urine Color Urine Clarity (CLEAR) Urine pH (5.0-7.5) PH Ur Specific [place] (1.002-1.030) Urine Protein (NEGATIVE) mg/dL Urine Glucose (UA) (NEGATIVE) mg/dL Urine Ketones (NEGATIVE) mg/dL Urine Occult Blood (NEGATIVE) Urine Nitrite (NEGATIVE) Urine Bilirubin (NEGATIVE) Urine Urobilinogen (NORMAL) E.U./dL Ur Leukocyte Esterase (NEGATIVE) Urine RBC (0-5) /HPF Urine WBC (0-3) /HPF Ur Squamous Epith Cells (<= Few) Urine Bacteria (None Seen) /HPF Ur Microscopic Review Urine Culture Comments 03/23/19 03/23/19 03/23/19 Range/Units 20:24 20:24 20:05 WBC 20.1 H (4.8-10.8) x10^3/uL RBC 5.00 (4.70-6.10) 10^6/uL Hgb 14.7 (14.0-18.0) g/dL Hct 46.7 (42.0-52.0) % MCV 93.4 (80.0-94.0) fL MCH 29.4 (27.0-31.0) pg MCHC 31.5 L (32.0-36.0) g/dL RDW 12.5 (12.0-15.0) % Plt Count 290 (130-450) 10^3/uL MPV 8.9 (7.4-11.4) fL Neut # (Auto) 15.9 H (1.5-6.6) 10^3/uL Lymph # (Auto) 2.8 (1.5-3.5) 10^3/uL Nye # (Auto) 1.1 H (0.0-1.0) 10^3/uL Eos # (Auto) 0.1 (0.0-0.7) 10^3/uL Baso # (Auto) 0.1 (0.0-0.1) 10^3/uL Absolute Nucleated RBC 0.00 x10^3/uL Nucleated RBC % 0.0 /100WBC Sodium 141 (135-145) mmol/L Potassium 4.1 (3.5-5.0) mmol/L Chloride 103 (101-111) mmol/L Carbon Dioxide 25 (21-32) mmol/L Anion Gap 13.0 (6-13) BUN 13 (6-20) mg/dL Creatinine 0.9 (0.6-1.2) mg/dL Estimated GFR (MDRD) 85 L (>89) Glucose 102 H (70-100) mg/dL POC Whole Bld Glucose (70 - 100) mg/dL Lactic Acid (0.5-2.2) mmol/L Calcium 9.7 (8.5-10.3) mg/dL Magnesium 2.4 (1.7-2.8) mg/dL Total Bilirubin 0.6 (0.2-1.0) mg/dL AST 23 (10-42) IU/L ALT 36 (10-60) IU/L Alkaline Phosphatase 97 (42-121) IU/L Total Protein 7.8 (6.7-8.2) g/dL Albumin 4.3 (3.2-5.5) g/dL Globulin 3.5 (2.1-4.2) g/dL Albumin/Globulin Ratio 1.2 (1.0-2.2) Lipase 27 (22-51) U/L Urine Color YELLOW Urine Clarity CLOUDY (CLEAR) Urine pH 5.5 (5.0-7.5) PH Ur Specific [place] 1.025 (1.002-1.030) Urine Protein 30 H (NEGATIVE) mg/dL Urine Glucose (UA) NEGATIVE (NEGATIVE) mg/dL Urine Ketones TRACE (NEGATIVE) mg/dL Urine Occult Blood MODERATE H (NEGATIVE) Urine Nitrite POSITIVE H (NEGATIVE) Urine Bilirubin NEGATIVE (NEGATIVE) Urine Urobilinogen 0.2 (NORMAL) (NORMAL) E.U./dL Ur Leukocyte Esterase MODERATE H (NEGATIVE) Urine RBC 11-25 H (0-5) /HPF Urine WBC >25 H (0-3) /HPF Ur Squamous Epith Cells NONE SEEN (<= Few) Urine Bacteria Few (None Seen) /HPF Ur Microscopic Review INDICATED Urine Culture Comments INDICATED ABX Reporting Has patient been on IV antibiotics over the past 48 hours?: Yes Sepsis Event Note (H) - Evaluation Current Stage of Sepsis: Sepsis Possible source of Sepsis: positive: Genitourinary - Sepsis Criteria Sepsis Criteria: Recorded Temperature greater than 38.3C or Less than 36C, Recorded Heart Rate greater than 90 bpm, WBC count greater than 12,000 or less than 4000, SAILMAKER: altered consciousness (unrelated to primary neuro pathology), Metabolic: lactate > 2 mmol/L Assessment/Plan - Problem List (1) UTI (urinary tract infection) Impression: - Patient has a well taken care of permanent supra pubic cath, which his manages - Preliminary UA shows + nitrites- indicating likely e. coli strain as the source of this infection Plan: Continue IV antibiotics, ensure S/P cath is draining well, anticipate changing the tubing prior to discharge Qualifiers: Urinary tract infection type: catheter-associated UTI Indwelling urinary catheter type: cystostomy catheter Encounter type: initial encounter Qualified Code(s): T83.510A - Infection and inflammatory reaction due to cystostomy catheter, initial encounter; N39.0 - Urinary tract infection, site not specified (2) Acute metabolic encephalopathy Impression: - Prior to this admission, the patient had been slightly confused - On exam today his confusion is difficult to molded goods spot picker on, but has slow responses and is slightly lethargic Plan: Continue to monitor for improvement, avoid sedatives, treat infection (3) Chronic suprapubic catheter Impression: - Given this condition, the patient may be at a higher risk of infection - Now with a severe UTI leading to septic shock- improving Plan: Continue to treat acute infection, change S/P cath prior to discharge (4) Type II diabetes mellitus Impression: - HgA1C was 5/8% on 02/25/2019 - Takes Metformin at home - Now on BS checks, SSI with meals here Plan: Continue carb controlled diet, SSI, and blood sugar checks Qualifiers: Diabetes mellitus ladle liner insulin use: without half-way use Diabetes mellitus complication detail: with unspecified neuropathy (5) Wheelchair dependent Impression: - Patient has been W/C dependent for at least the past year, but can bear weight on his legs - This is likely a result of his MS and Lymes disease Plan: PT prior to discharge, fall precautions (6) Multiple sclerosis Impression: - The patient describes that soon after being diagnosed with MS, he moved to [facility] - Complicating factor of Lymes disease - Now with neurological physical impairments - Chronic neurogenic bladder, S/P cath is chronic Plan: Continue to treat infection, PT evaluation prior to discharge (7) Hypertension Impression: - Takes Lisinopril at home - Light blood pressures, 104/65 today - Home medication on hold for now in the setting of this acute illness - Likely prescribed for kidney protection with having DM Plan: Monitor vital signs, resume when appropriate Qualifiers: Hypertension type: essential hypertension Qualified Code(s): I10 - Essential (primary) hypertension (8) Neuropathy Impression: - Takes Flexeril and gabapentin at home - Complains of "leg cramping" today - Resumed usual home dosing due to improved mentation Plan: Continue home meds, avoid over-sedation
[2019-03-24] MEDS: traZODone 50 MG TABLET PO SCH (22:23)
[2019-03-25] MEDS: ACETAMINOPHEN 325 MG TABLET PO PRN ×4 (00:19→22:22)
[2019-03-25] MEDS: SODIUM CHLORIDE 0.9% 1,000 ML IV SCH ×2 (00:23→08:38)
[2019-03-25 05:29] LABS: BASOPHILS % (AUTO) 0.3 %; EOSINOPHILS # (AUTO) 0.4 10^3/uL (0.0-0.7); EOSINOPHILS % (AUTO) 3.8 %; HGB - HEMOGLOBIN 11.4 g/dL (14.0-18.0); LYMPHOCYTES # (AUTO) 1.8 10^3/uL (1.5-3.5); LYMPHOCYTES % (AUTO) 19.6 %; MEAN CORPUSCULAR HEMOGLOBIN 29.5 pg (27.0-31.0); MEAN CORPUSCULAR HGB CONC 32.1 g/dL (32.0-36.0); MEAN PLATELET VOLUME 9.2 fL (7.4-11.4); MONOCYTES # (AUTO) 0.6 10^3/uL (0.0-1.0); MONOCYTES % (AUTO) 6.1 %; NEUTROPHILS # (AUTO) 6.4 10^3/uL (1.5-6.6); NEUTROPHILS % (AUTO) 69.8 %; PLT - PLATELET COUNT 239 10^3/uL (130-450); RED BLOOD COUNT 3.86 10^6/uL (4.70-6.10); RED CELL DISTRIBUTION WIDTH 12.6 % (12.0-15.0); WHITE BLOOD COUNT 9.2 x10^3/uL (4.8-10.8)
[2019-03-25 05:32] LABS: CALCIUM 8.5 mg/dL (8.5-10.3); CREATININE 0.8 mg/dL (0.6-1.2)
[2019-03-25] MEDS: SODIUM CHLORIDE FLUSH 0.9% 10 ML SYRINGE IVP SCH ×3 (07:58→18:54)
[2019-03-25] MEDS: INSULIN ASPART 300 UNIT/3 ML PEN SUBQ SCH (08:09)
--- NOTE | 2019-03-25 08:10 | PROVIDER PROGRESS NOTE ---
Subjective - Prog Note Date Prog Note Date: 03/25/19 Prog Note Time: 08:10 - Subjective Pt reports feeling: Improved Subjective: Asher states that his leg cramps have improved, and he is beginning to feel "back to normal". He denies chest pain, abdominal pain, nausea, vomiting, diarrhea, a new rash, or a new cough. Current Medications - Current Medications Current Medications: Active Medications: Acetaminophen (Tylenol) 650 mg PO Q4HR PRN Cyclobenzaprine HCl (Flexeril) 10 mg PO TID PRN Enoxaparin Sodium (Lovenox) 40 mg SUBQ DAILY GAGAN Gabapentin (Neurontin) 300 mg PO TID Lisinopril 2.5 mg PO daily [facility] Sodium Chloride (Normal Saline 0.9%) 1,000 mls @ 125 mls/hr IV .Q8H [facility] Cefepime HCl 2 gm/ Sodium (Chloride) 100 mls @ 200 mls/hr IV Q12H [facility] Insulin Aspart (Novolog) 1 - 5 unit SUBQ 0800,1200,1700,2100 [facility]; Protocol Polyethylene Glycol (Miralax) 17 gm PO DAILY GAGAN Trazodone HCl (Desyrel) 50 mg PO QPM [facility] HOME meds: Cyclobenzaprine HCl 10 mg PO TID PRN 10/11/17 Gabapentin 600 mg PO TID 10/11/17 Lisinopril 5 mg PO DAILY 01/05/19 Metformin HCl 1,000 mg PO BIDWM 01/05/19 Objective - Vital Signs/Intake & Output Reviewed Vital Signs: Yes Vital Signs: Vital Signs x48h Temp Pulse Pulse Resp BP Pulse Ox 03/25/19 05:33 36.4 C L 96 18 97 03/25/19 05:00 36.4 C L 96 18 94/59 L 97 Intake & Output: Intake & Output 03/22/19 03/23/19 03/24/19 03/25/19 23:59 23:59 23:59 23:59 Intake Total 1300 4890.833 Output Total 300 4350 1700 Balance 1000 540.833 -1700 - Objective General Appearance: positive: No acute distress, Alert Eyes Bilateral: positive: PERRL ENT: positive: Pharynx nml, No signs of dehydration Neck: positive: Thyroid nml, No JVD, Trachea midline Respiratory: positive: Chest non-tender, No respiratory distress, Breath sounds nml Cardiovascular: positive: Regular rate & rhythm, No gallop, Tachycardia, Systolic murmur, Decreased pulse(s) Peripheral Pulses: 1+ Radial (R), 1+ Radial (L) Abdomen: positive: Non-tender, Nml bowel sounds Back: positive: Nml inspection Skin: positive: Color nml, No rash, Warm, Dry Extremities: positive: Non-tender, Pedal edema, Other (loss of function to BLEs) Neurologic/Psychiatric: positive: Oriented x3, Weakness, Sensory loss, Slurred/abnml speech, Depressed mood/affect, Other (baseline neurological deficits with MS) Reflexes: Bicep (R): 3+, Bicep (L): 3+ - Lab Results Fish Bones: 03/25/19 04:50 03/25/19 04:50 Other Labs: Lab Results x24hrs 03/25/19 03/25/19 03/24/19 Range/Units 04:50 04:50 20:39 WBC 9.2 (4.8-10.8) x10^3/uL RBC 3.86 L (4.70-6.10) 10^6/uL Hgb 11.4 L (14.0-18.0) g/dL Hct 35.5 L (42.0-52.0) % MCV 92.0 (80.0-94.0) fL MCH 29.5 (27.0-31.0) pg MCHC 32.1 (32.0-36.0) g/dL RDW 12.6 (12.0-15.0) % Plt Count 239 (130-450) 10^3/uL MPV 9.2 (7.4-11.4) fL Neut # (Auto) 6.4 (1.5-6.6) 10^3/uL Lymph # (Auto) 1.8 (1.5-3.5) 10^3/uL [place] # (Auto) 0.6 (0.0-1.0) 10^3/uL Eos # (Auto) 0.4 (0.0-0.7) 10^3/uL Baso # (Auto) 0.0 (0.0-0.1) 10^3/uL Absolute Nucleated RBC 0.00 x10^3/uL Nucleated RBC % 0.0 /100WBC Sodium 143 (135-145) mmol/L Potassium 3.7 (3.5-5.0) mmol/L Chloride 111 (101-111) mmol/L Carbon Dioxide 24 (21-32) mmol/L Anion Gap 8.0 (6-13) BUN 9 (6-20) mg/dL Creatinine 0.8 (0.6-1.2) mg/dL Estimated GFR (MDRD) 97 (>89) Glucose 104 H (70-100) mg/dL POC Whole Bld Glucose 141 H (70 - 100) mg/dL Calcium 8.5 (8.5-10.3) mg/dL 03/24/19 03/24/19 03/24/19 Range/Units 16:37 11:16 08:20 WBC (4.8-10.8) x10^3/uL RBC (4.70-6.10) 10^6/uL Hgb (14.0-18.0) g/dL Hct (42.0-52.0) % MCV (80.0-94.0) fL MCH (27.0-31.0) pg MCHC (32.0-36.0) g/dL RDW (12.0-15.0) % Plt Count (130-450) 10^3/uL MPV (7.4-11.4) fL Neut # (Auto) (1.5-6.6) 10^3/uL Lymph # (Auto) (1.5-3.5) 10^3/uL [place] # (Auto) (0.0-1.0) 10^3/uL Eos # (Auto) (0.0-0.7) 10^3/uL Baso # (Auto) (0.0-0.1) 10^3/uL Absolute Nucleated RBC x10^3/uL Nucleated RBC % /100WBC Sodium (135-145) mmol/L Potassium (3.5-5.0) mmol/L Chloride (101-111) mmol/L Carbon Dioxide (21-32) mmol/L Anion Gap (6-13) BUN (6-20) mg/dL Creatinine (0.6-1.2) mg/dL Estimated GFR (MDRD) (>89) Glucose (70-100) mg/dL POC Whole Bld Glucose 88 148 H 97 (70 - 100) mg/dL Calcium (8.5-10.3) mg/dL ABX Reporting Has patient been on IV antibiotics over the past 48 hours?: Yes Sepsis Event Note (H) - Evaluation Current Stage of Sepsis: Resolved Possible source of Sepsis: positive: Genitourinary - Sepsis Criteria Sepsis Criteria: Recorded Heart Rate greater than 90 bpm Assessment/Plan - Problem List (1) UTI (urinary tract infection) Impression: - Patient has a well taken care of permanent supra pubic cath, which his manages - Preliminary Urine culture shows e. coli strain as the source of this infection with final sensitivities pending. - Patient may benefit from cement or concrete finishing supervisor UTI prophylaxis - IVFs stopped as the patient is eating and drinking well - Urine appearance is improved, without sediment in the valerio tubing - NO loss of kidney function with this hospital stay Plan: Continue IV antibiotics, ensure S/P cath is draining well, anticipate changing the tubing prior to discharge Qualifiers: Urinary tract infection type: catheter-associated UTI Indwelling urinary catheter type: cystostomy catheter Encounter type: initial encounter Qualified Code(s): T83.510A - Infection and inflammatory reaction due to cystostomy catheter, initial encounter; N39.0 - Urinary tract infection, site not specified (2) Chronic suprapubic catheter Impression: - Given this condition, the patient may be at a higher risk of infection - UTI leading to septic shock- improving - Bilateral flank pain is improved Plan: Continue to treat acute infection, change S/P cath prior to discharge (3) Type II diabetes mellitus Impression: - HgA1C was 5/8% on 02/25/2019 - Takes Metformin at home - Now on BS checks, SSI with meals here Plan: Continue carb controlled diet, SSI, and blood sugar checks, check new A1C in the AM Qualifiers: Diabetes mellitus cement or concrete finishing supervisor insulin use: without cement or concrete finishing supervisor use Diabetes mellitus complication detail: with unspecified neuropathy (4) Wheelchair dependent Impression: - Patient has been W/C dependent for at least the past year, but can bear weight on his legs - This is likely a result of his MS and Lymes disease Plan: PT prior to discharge, fall precautions (5) Multiple sclerosis Impression: - The patient describes that soon after being diagnosed with MS, he moved to [facility] - Complicating factor of Lymes disease - Now with neurological physical impairments - Chronic neurogenic bladder, S/P cath is chronic Plan: Continue to treat infection, PT evaluation prior to discharge (6) Acute metabolic encephalopathy Impression: - Prior to this admission, the patient had been slightly confused - On exam today his confusion is difficult to grain picker on, but has slow responses and is slightly lethargic - This condition is nearly resolved with the exception of some short term memory loss, loss of ideas, etc. - Admits to improved sleep and energy Plan: Continue to monitor for improvement, avoid sedatives, treat infection (7) Hypertension Impression: - Takes Lisinopril at home - Light blood pressures, 119/58 today - Home medication on hold for now in the setting of this acute illness - Likely prescribed for kidney protection with having DM - Resuming low dose lisinopril for the AM at 2.5 mg daily Plan: Monitor vital signs, resume in the AM Qualifiers: Hypertension type: essential hypertension Qualified Code(s): I10 - Essential (primary) hypertension (8) Neuropathy Impression: - Takes Flexeril and gabapentin at home - Complains of "leg cramping" today - Resumed usual home dosing due to improved mentation Plan: Continue home meds, avoid over-sedation
[2019-03-25] MEDS: POLYETHYLENE GLYCOL 3350 17 GM PACKET PO SCH (08:38)
[2019-03-25] MEDS: ENOXAPARIN 40 MG/0.4 ML SYRINGE SUBQ SCH (08:38)
[2019-03-25] MEDS: CEFEPIME 2 GM in SODIUM CHLORIDE 0.9% MINIBAG 100 ML IV SCH ×2 (09:02→22:23)
[2019-03-25] MEDS: GABAPENTIN 300 MG CAPSULE PO SCH ×2 (13:29→22:23)
[2019-03-25] MEDS: CYCLOBENZAPRINE 10 MG TABLET PO PRN (20:31)
[2019-03-25] MEDS: traZODone 50 MG TABLET PO SCH (22:23)
[2019-03-26 05:08] LABS: BASOPHILS % (AUTO) 0.4 %; EOSINOPHILS # (AUTO) 0.3 10^3/uL (0.0-0.7); EOSINOPHILS % (AUTO) 6.2 %; HGB - HEMOGLOBIN 11.7 g/dL (14.0-18.0); LYMPHOCYTES # (AUTO) 1.4 10^3/uL (1.5-3.5); LYMPHOCYTES % (AUTO) 25.9 %; MEAN CORPUSCULAR HEMOGLOBIN 29.3 pg (27.0-31.0); MEAN CORPUSCULAR HGB CONC 32.6 g/dL (32.0-36.0); MEAN PLATELET VOLUME 8.8 fL (7.4-11.4); MONOCYTES # (AUTO) 0.5 10^3/uL (0.0-1.0); MONOCYTES % (AUTO) 8.2 %; NEUTROPHILS # (AUTO) 3.2 10^3/uL (1.5-6.6); NEUTROPHILS % (AUTO) 58.6 %; PLT - PLATELET COUNT 256 10^3/uL (130-450); RED BLOOD COUNT 3.99 10^6/uL (4.70-6.10); RED CELL DISTRIBUTION WIDTH 12.1 % (12.0-15.0); WHITE BLOOD COUNT 5.5 x10^3/uL (4.8-10.8)
[2019-03-26 05:15] LABS: CALCIUM 8.8 mg/dL (8.5-10.3); CREATININE 0.7 mg/dL (0.6-1.2)
[2019-03-26 05:43] LABS: HB2 TOTAL 12.4 g/dL; HEMOGLOBIN A1C 0.44 g/dL; HEMOGLOBIN A1C % 5.4 % (4.6-6.2)
[2019-03-26] MEDS: SODIUM CHLORIDE FLUSH 0.9% 10 ML SYRINGE IVP SCH ×2 (06:25→09:29)
[2019-03-26] MEDS: GABAPENTIN 300 MG CAPSULE PO SCH (06:25)
--- NOTE | 2019-03-26 07:24 | Discharge Plan ---
Discharge Plan Disposition: Home, Self Care Condition: Good Prescriptions: Amox/Clav 875/125 [Augmentin] 1 each PO Q12H 20 Days #40 tablet Saccharomyces Boulardii [Florastor] 250 mg PO BID #60 capsule Diet: Regular Activity Restrictions: Activity as Tolerated Shower Restrictions: No Weight Bearing: Full Weight Health Concerns: USP s/p catheter and recurrent infections Plan of Treatment: Continue longterm treatment at home to get all the way through the prostate and completely cure this infection. Care Goals: Keep out of the hospital Maintain strength Assessment: As long as you keep taking the antibiotic, and change the catheter when you get home, you are expected to make a full recovery. Additional Instructions or Follow Up instructions: You were admitted for Sepsis and UTI which will need a prolonged treatment of 21 days total. Change your s/p cath when you get home to ensure a complete recovery of this infection. See your Urologist as scheduled, explore long-term daily antibiotics in the future if this would help prevent hospital stays. Your blood pressure was on the "light" side at times with us. So today, Lisinopril was resumed at a very low dose. Since you are improving each day, you can resume your usual dose tomorrow heidy ling. Please see your PCP within one week. No Smoking: If you smoke, Please STOP! Call for help. Follow-up with: Radha Kingston ARNP [Primary Care Provider] -
--- NOTE | 2019-03-26 07:27 | DISCHARGE SUMMARY ---
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 coli with several sensitivities Acute metabolic encephalopathy- resolved Chronic suprapubic catheter- chronic, stable, devise will be changed at home Type II diabetes mellitus- chronic, stable Wheelchair dependence- chronic, stable Multiple sclerosis-chronic, stable Hypertension-chronic, stable Neuropathy-chronic, stable Memory loss-chronic, stable - HPI History of Present Illness: HPI per Dr. Mcclelland: (modified) Asher Washington is a 64-year old male with a past med ical history of multiple sclerosis, lymes disease, hypertension, wheel/chair bound, recurrent UTIs, status post prostate cancer, and neurogenic bladder leading to a chronic indwelling S/P catheter. He presented to the ED with acute onset of fever, slurred speech, weakness/fatigue. His indwelling suprapubic catheter in place with malodorous urine that started today, and reports of a fever of 100.6 today. Lives at home with , she states he is lethargic, has low back pain and is acting like he is septic, states he is slurring his words since he woke up and has gotten progressively worse. He was unable to assist in transfer unto his wheelchair. As a result he fell during transfer. It was witnessed and he did not black out. His symptoms began yesterday but got worse today. He has history of Pseudomonas infections in the past with his last UTI being October of last year. He has a suprapubic catheter which is due for changing in 4 days. It was flushed by his earlier. He sees Dr Genet Morgan (urologist) at . Work up in the ED showed a WBC of 20.1, and a UA strongly suggestive of a UTI. He was also tachycardic with a pulse in the 110's. He denied chest pain, shortness of breath, abdominal pain, nausea or vomiting. He was admitted to inpatient for further treatment of this infection using IV antibiotics, worrisome for septic shock. - HOSPITAL COURSE Hospital Course: Sepsis- No lactic acid, but with AMS, elevated WBC count, tachycardia, and fevers. Also had a history of this, but his resolved. Blood cultures x2 remained no growth to date UTI (urinary tract infection)- Patient has a well taken care of permanent supra pubic cath, which his manages - Urine culture shows e. coli strain as the source of this infection with final sensitivities - Patient may benefit from rodent exterminator UTI prophylaxis - Urine appearance is improved, without sediment in the valerio tubing - NO loss of kidney function with this hospital stay - Patient advised to change his S/P cath soon after getting home to help ensure a resolution of the infection Chronic suprapubic catheter- Given this condition, the patient may be at a higher risk of infection - UTI leading to septic shock- resolved - Bilateral flank pain has resolved Type II diabetes mellitus - HgA1C was 5/8% on 02/25/2019, 5.4% on 03/26/2019 - Takes Metformin at home, which is resumed on discharge Wheelchair dependent- Patient has been W/C dependent for at least the past year, but can bear weight on his legs - This is likely a result of his MS and Lymes disease Multiple sclerosis- The patient describes that soon after being diagnosed with MS, he moved to [facility] - Complicating factor of Lymes disease - Now with neurological physical impairments - Chronic neurogenic bladder, S/P cath is chronic Acute metabolic encephalopathy - Prior to this admission, the patient had been slightly confused - On exam today his confusion is difficult to knot picker cloth on, but has slow responses and is slightly lethargic - This condition is nearly resolved with the exception of some short term memory loss, loss of ideas, etc. - Admits to improved sleep and energy Hypertension- Takes Lisinopril at home - Light blood pressures, 119/58 - Home medication was initially on hold in the setting of this acute illness - Likely prescribed for kidney protection with having DM - Resumed low dose lisinopril at 2.5 mg daily, recommend usual dose starting tomorrow morning at home Neuropathy- Takes Flexeril and gabapentin at home - Complained of "leg cramping" on his first day of stay, no resolved - Resumed usual home dosing due to improved mentation Disposition: The patient was medically stable and discharged home with his . - ALLERGIES Allergies/Adverse Reactions: Allergies Allergy/AdvReac Type Severity Reaction Status Date / Time No Known Drug Allergies Allergy Verified 03/09/18 13:40 - MEDICATIONS Home Medications: Ambulatory Orders Medication Instructions Recorded Confirmed Cyclobenzaprine HCl 10 mg PO TID PRN 10/11/17 03/24/19 Gabapentin 600 mg PO TID 10/11/17 03/24/19 Lisinopril 5 mg PO DAILY 01/05/19 03/24/19 Metformin HCl 1,000 mg PO BIDWM 01/05/19 03/24/19 Amox/Clav 875/125 [Augmentin] 1 each PO Q12H 20 Days #40 tablet 03/26/19 Saccharomyces Boulardii [Florastor] 250 mg PO BID #60 capsule 03/26/19 - PHYSICAL EXAM AT DISCHARGE General Appearance: positive: No acute distress, Alert Eyes Bilateral: positive: Normal inspection, PERRL ENT: positive: Pharynx nml, No signs of dehydration Neck: positive: Thyroid nml, No JVD, Trachea midline Respiratory: positive: Chest non-tender, No respiratory distress, Breath sounds nml Cardiovascular: positive: Regular rate & rhythm, No gallop, Systolic murmur Peripheral Pulses: positive: 2+ Abdomen: positive: Non-tender, Nml bowel sounds Back: positive: Nml inspection Skin: positive: Color nml, No rash, Warm, Dry Extremities: positive: Non-tender, Pedal edema, Joint swelling, Other (baseline loss of function to BLEs) Neurologic/Psychiatric: positive: Oriented x3, Weakness, Sensory loss, Depressed mood/affect Reflexes: Bicep (R): 3+, Bicep (L): 3+ - LABS Result Diagrams: 03/26/19 04:40 03/26/19 04:40 - DIAGNOSTIC IMAGING Diagnostic Imaging Results: Final report reviewed - SEPSIS Current Stage of Sepsis: Resolved Possible source of Sepsis: Genitourinary - FOLLOW UP Follow Up: Disposition: Home, Self Care Condition: Good Prescriptions: Amox/Clav 875/125 [Augmentin] 1 each PO Q12H 20 Days #40 tablet Saccharomyces Boulardii [Florastor] 250 mg PO BID #60 capsule Additional Instructions or Follow Up instructions: You were admitted for Sepsis and UTI which will need a prolonged treatment of 21 days total. Change your s/p cath when you get home to ensure a complete recovery of this infection. See your Urologist as scheduled, explore long-term daily antibiotics in the future if this would help prevent hospital stays. Your blood pressure was on the "light" side at times with us. So today, Lisinopril was resumed at a very low dose. Since you are improving each day, you can resume your usual dose tomorrow morning. Please see your PCP within one week. - TIME SPENT Time Spent in Discharge (Minutes): 50
[2019-03-26 08:57] VITALS: BP 130/87
[2019-03-26] MEDS ORDERED: LISINOPRIL 5 MG TABLET PO SCH (09:00)
[2019-03-26] MEDS ORDERED: SENNA 8.6 MG TABLET PO SCH (09:00)
[2019-03-26] MEDS: ENOXAPARIN 40 MG/0.4 ML SYRINGE SUBQ SCH (09:28)
[2019-03-26] MEDS: CEFEPIME 2 GM in SODIUM CHLORIDE 0.9% MINIBAG 100 ML IV SCH (09:29)
[2019-03-26] MEDS: POLYETHYLENE GLYCOL 3350 17 GM PACKET PO SCH (09:31)
== END 2019-03-26 11:00 | disposition home or self-care (01) | DRG 698 ==
LOC: ED 19:32 → MS2 21:13
PROVIDERS: ADMIT Internal Medicine; ATTEND Nurse Practitioner
DX: A41.9 Sepsis, unspecified organism (principal); T83.510A Infection and inflammatory reaction due to cystostomy catheter, initial encounter; A41.51 Sepsis due to Escherichia coli [E. coli]; G93.41 Metabolic encephalopathy; E11.9 Type 2 diabetes mellitus without complications; R39.81 Functional urinary incontinence; R65.21 Severe sepsis with septic shock; E86.0 Dehydration; N39.0 Urinary tract infection, site not specified; Y92.009 Unspecified place in unspecified non-institutional (private) residence as the place of occurrence of the external cause; G35 Multiple sclerosis; E11.40 Type 2 diabetes mellitus with diabetic neuropathy, unspecified; N31.9 Neuromuscular dysfunction of bladder, unspecified; N39.498 Other specified urinary incontinence; I10 Essential (primary) hypertension; Z79.84 Long term (current) use of oral hypoglycemic drugs; Z99.3 Dependence on wheelchair; Z86.19 Personal history of other infectious and parasitic diseases; Z87.440 Personal history of urinary (tract) infections; Z85.46 Personal history of malignant neoplasm of prostate; Z87.11 Personal history of peptic ulcer disease
CPT/HCPCS: 36415; 80048; 80053; 81001; 83036; 83605; 83690; 83735; 85025; 87040; 87086; 87181; 96374; 97161; 97165; 99283; 99285; A9270; J1650; 81003; 85610; 85730

== ENCOUNTER 2019-10-18 11:10 | Outpatient (CLI) | payer MEDICARE, OTHER ==
--- NOTE | 2019-10-18 15:07 | XRAY Report ---
Reason: DYSPHAGIA Procedure Date: 10/18/2019 Accession Number: [id number] / [id number] Procedure: FL - Modified Barium Swallow W/SP CPT Code: Final Report FULL RESULT: EXAM: MODIFIED BARIUM SWALLOW EXAM DATE: 10/18/2019 11:35 AM. CLINICAL HISTORY: Dysphagia. COMPARISON: None. TECHNIQUE: Under the direction of speech pathology, patient swallowed various consistencies of barium under lateral fluoroscopic observation of the neck. Fluoroscopy Time: 47 seconds. Number of Images: 75. FINDINGS: Swallowing Mechanism: Normal oral phase and swallowing reflex. Airway Protection: Normal epiglottic motion. No episodes of tracheal penetration or aspiration with all consistencies of barium. Pharynx: Normal. No significant vallecular or piriform sinus contrast pooling. Other: None. IMPRESSION: Normal modified barium swallow. No aspiration identified. RADIA
== END 2019-10-18 11:11 | disposition home or self-care (01) ==
LOC: DI 11:10
PROVIDERS: ATTEND Physical Medicine & Rehabilitation
DX: R13.10 Dysphagia, unspecified (principal)
CPT/HCPCS: 74230

== ENCOUNTER 2020-02-14 17:12 | Outpatient (CLI) | payer MEDICARE, OTHER | END 2020-02-14 17:13 | disposition home or self-care (01) | LOC: COV 17:12 | PROVIDERS: ATTEND Family Medicine | DX: R50.9 Fever, unspecified (principal); R05 Cough; R53.83 Other fatigue | CPT/HCPCS: 81599 ==

== ENCOUNTER 2020-08-12 08:00 | Outpatient (CLI) | payer MEDICARE, OTHER ==
--- NOTE | 2020-08-12 13:32 | XRAY Report ---
PROCEDURE: Elbow 3 View RT INDICATIONS: CONTUSION OF RIGHT ELBOW TECHNIQUE: 4 views of the elbow were acquired. COMPARISON: None. FINDINGS: Bones: No acute fractures or dislocations. No suspicious bony lesions. Soft tissues: There is moderate soft tissue swelling involving the posterior and lateral aspect of t he right elbow with more focal soft tissue swelling overlying the olecranon process. No elbow joint e ffusion. No suspicious soft tissue calcifications. IMPRESSION: Moderate soft tissue swelling involving the posterior lateral aspect of the right elbow without under lying fracture or dislocation. More focal soft tissue swelling overlying the olecranon process may representconcurrent olecranon bu rsitis. If there is persistent clinical concern for a radiographically fracture, recommend immobilization and repeat imaging in 10 to 14 days. Reviewed by: Tobias Muñiz MD on 08/12/2020 12:[address] [facility] Approved by: Tobias Muñiz MD on 08/12/2020 12:[address] [facility] Station ID: [id number]
== END 2020-08-12 23:59 ==
LOC: DI.S 08:00
PROVIDERS: ATTEND Physician Assistant Medical
DX: R93.89 Abnormal findings on diagnostic imaging of other specified body structures (principal)

== ENCOUNTER 2020-08-25 14:13 | Outpatient (CLI) | payer MEDICARE, OTHER ==
[2020-08-25 15:07] LABS: CALCIUM 9.1 mg/dL (8.5-10.3); CREATININE 0.6 mg/dL (0.6-1.2)
[2020-08-25] MEDS ORDERED: IOVERSOL 320 100 ML VIAL IVP ONE (16:16)
--- NOTE | 2020-08-25 16:36 | CT Report ---
PROCEDURE: ANGIO HEAD W/WO INDICATIONS: HEADACHE, MS CONTRAST: IV CONTRAST: Optiray 320 ml: 80 PO CONTRAST: *NO PO CONTRAST TECHNIQUE: Precontrast 4.5 mm thick angled axial sections acquired from the foramen magnum to the vertex. Afte r the administration of intravenous contrast, 1 mm thick sections acquired through the [place] of [place] is. Postcontrast 4.5 mm thick sections then re-acquired from the foramen magnum to the vertex. 3-di mensional dottfwl-hsrdxwhez-dmaozygcre (MIP) and/or volume rendering reformats were acquired of the c entral intracranial vasculature. For radiation dose reduction, the following was used: automated ex posure control, adjustment of mA and/or kV according to patient size. COMPARISON: None FINDINGS: Image quality: Excellent. Anterior circulation: Intracranial internal carotid arteries are normal in size and flow. The flow within the paired anterior cerebral arteries is normal and symmetric. The flow within the middle cer ebral arteries is normal and symmetric. The anterior communicating artery is seen. No aneurysms are seen. Posterior circulation: Visualized portions of the vertebral arteries demonstrate normal caliber, and join to form a normal appearing basilar artery. Flow within the posterior cerebral arteries is norm al and symmetric. No aneurysms are seen. Dural sinuses and straight normal postcontrast enhancement. CSF spaces: Ventricles are normal in size and shape. Basal cisterns are patent. No extra-axial flu id collections. Brain: No midline shift. No intracranial bleeds or masses. There is mild, diffuse cerebral volume l oss. There are mild periventricular and subcortical white matter chronic microvascular ischemic morgan es. Jo-white matter interface appears intact. Skull and face: Calvarium and facial bones appear intact, without suspicious lesions. Sinuses: Visualized sinuses and mastoids are clear. IMPRESSION: 1. No acute intracranial disease process. 2. No large vessel occlusion, vascular stenosis, vascular dissection or aneurysm. 3. Mild, diffuse cerebral volume was. 4. Mild periventricular and subcortical white matter chronic microvascular ischemic change. Reviewed by: Catrina Dubon MD, PhD on 08/25/2020 4:34 PM PST Approved by: Catrina Dubon MD, PhD on 08/25/2020 4:34 PM PST Station ID: [id number]
== END 2020-08-25 14:14 | disposition home or self-care (01) ==
LOC: LAB 14:13 → DI 14:14
PROVIDERS: ATTEND Psychiatry & Neurology Neurology
DX: G35 Multiple sclerosis (principal); R51.9 Headache, unspecified
CPT/HCPCS: 36415; 70496; 80048; Q9967

== ENCOUNTER 2020-08-25 14:47 | Outpatient (CLI) | payer MEDICARE, OTHER ==
[2020-08-25] MEDS ORDERED: IOVERSOL 320 100 ML VIAL IVP ONE (15:04)
--- NOTE | 2020-08-25 16:16 | Ultrasound Report ---
PROCEDURE: Retroperitoneal INDICATIONS: NEUROGENIC BLADDER TECHNIQUE: Real-time scanning was performed of the retroperitoneal organs, with image documentation. COMPARISON: None. FINDINGS: Kidneys: Kidneys are normal in size. Right kidney measures 14.2 cm long; left kidney measures 2. cm long. Right renal cortical thickness is 1.6 cm; left renal cortical thickness is 1.5 cm. The right kidney has a cyst in the superior pole measuring 1.9 x 1.9 x 1.5 cm. The right kidney has a cyst in t he medial superior pole measuring 1.3 x 0.8 x 1.0 cm. No solid masses, hydronephrosis, or nephrolithi asis. IMPRESSION: 1. No acute ultrasound abnormality. 2. Simple cysts in the right superior pole. 3. The bladder is decompressed with a suprapubic catheter. Reviewed by: Cheo Plunkett on 08/25/2020 4:15 PM PST Approved by: Cheo Plunkett on 08/25/2020 4:15 PM [facility] Station ID: [id number]
== END 2020-08-25 14:48 | disposition home or self-care (01) ==
LOC: DI 14:47
PROVIDERS: ATTEND Urology
DX: N31.9 Neuromuscular dysfunction of bladder, unspecified (principal); N28.1 Cyst of kidney, acquired
CPT/HCPCS: 76770

== ENCOUNTER 2021-03-24 11:05 | Outpatient (CLI) | payer MEDICARE, OTHER ==
--- NOTE | 2021-03-24 14:54 | XRAY Report ---
PROCEDURE: Chest 2 View X-Ray INDICATIONS: COUGH TECHNIQUE: 2 view(s) of the chest. COMPARISON: None. FINDINGS: Surgical changes and devices: None. Lungs and pleura: No pleural effusions or pneumothorax. Lungs are clear. Mediastinum: Mediastinal contours are normal. Heart size is normal. Bones and chest wall: No suspicious bony abnormalities. Soft tissues appear unremarkable. IMPRESSION: No evidence acute pulmonary process. Reviewed by: Royer Linares MD on 03/24/2021 1:53 PM [facility] Approved by: Royer Linares MD on 03/24/2021 1:53 PM [facility] Station ID: [id number]
== END 2021-03-24 11:06 | disposition home or self-care (01) ==
LOC: DI 11:05
PROVIDERS: ATTEND Internal Medicine
DX: R05 Cough (principal); N28.1 Cyst of kidney, acquired; Z96.0 Presence of urogenital implants

== ENCOUNTER 2021-03-24 12:58 | Outpatient (CLI) | payer MEDICARE, OTHER ==
--- NOTE | 2021-03-24 18:09 | Ultrasound Report ---
PROCEDURE: Retroperitoneal INDICATIONS: NEUROGENIC BLADDER TECHNIQUE: Real-time scanning was performed of the retroperitoneal organs, with image documentation. COMPARISON: 08/25/2020. FINDINGS: Kidneys: Kidneys are normal in size. Right kidney measures 12.6 cm long; left kidney measures 11.9 cm long. Right renal cortical thickness is 2.0 cm; left renal cortical thickness is 1.5 cm. No clementina d masses, hydronephrosis, or nephrolithiasis. 1.8 x 1.7 x 1.5 cm simple cyst is seen in upper pole o f right kidney. 1.1 x 0.8 x 0.7 cm simple cyst is also seen in the upper pole of right kidney. Bladder: Suprapubic catheter is seen within decompressed urinary bladder. IMPRESSION: 1. No hydronephrosis or solid-appearing renal lesion seen. Right renal cysts as above. 2. Suprapubic catheter within decompressed urinary bladder. Reviewed by: Sky Campa MD on 03/24/2021 6:08 PM PDT Approved by: Sky Campa MD on 03/24/2021 6:08 PM PDT Station ID: [id number]
== END 2021-03-24 12:59 | disposition home or self-care (01) ==
LOC: DI 12:58
PROVIDERS: ATTEND Urology
DX: N28.1 Cyst of kidney, acquired (principal); Z96.0 Presence of urogenital implants

== ENCOUNTER 2022-02-24 21:34 | Outpatient (CLI) | payer MEDICARE, OTHER | END 2022-02-24 21:35 | disposition critical access hospital (66) | LOC: EMS 21:34 | DX: R50.9 Fever, unspecified (principal); Z93.50 Unspecified cystostomy status; G35 Multiple sclerosis; Z74.01 Bed confinement status | CPT/HCPCS: A0425; A0429 ==

== ENCOUNTER 2022-02-24 21:55 | Emergency (ER) | payer MEDICARE, OTHER ==
[2022-02-24 22:05] VITALS: BP 129/81
[2022-02-24] MEDS ORDERED: SODIUM CHLORIDE 0.9% 1,000 ML IV STA (22:14)
[2022-02-24 22:44] LABS: BILIRUBIN,URINE NEGATIVE (NEGATIVE); GLUCOSE, URINE (UA) NEGATIVE (NEGATIVE); KETONES,URINE (UA) 15 mg/dL (NEGATIVE); LEUKOCYTE ESTERASE, URINE SMALL (NEGATIVE); NITRITE,URINE POSITIVE (NEGATIVE); OCCULT BLOOD,URINE TRACE-INTA (NEGATIVE); PH,URINE 6.5 PH (5.0-7.5); PROTEIN,URINE TRACE mg/dL (NEGATIVE); UROBILINOGEN,URINE 0.2 (NORMAL) E.U./dL (NORMAL)
[2022-02-24 22:47] LABS: CLARITY,URINE HAZY (CLEAR)
[2022-02-24 22:48] LABS: AMORPHOUS SEDIMENT,UR Rare /LPF; BACTERIA,URINE Many /HPF (None Seen); CRYSTALS,URINE 0-2 Calcium Oxalate /LPF; SQUAMOUS EPITHELIAL CELL,UR NONE SEEN (<= Few); WBC CLUMPS,URINE PRESENT; WBC,URINE >25 /HPF (0-3)
[2022-02-24 22:56] LABS: BASOPHILS % (AUTO) 0.2 %; EOSINOPHILS # (AUTO) 0.1 10^3/uL (0.0-0.7); EOSINOPHILS % (AUTO) 0.4 %; HCT - HEMATOCRIT 40.4 % (42.0-52.0); HGB - HEMOGLOBIN 13.6 g/dL (14.0-18.0); LYMPHOCYTES # (AUTO) 1.1 10^3/uL (1.5-3.5); LYMPHOCYTES % (AUTO) 8.7 %; MEAN CORPUSCULAR HEMOGLOBIN 30.7 pg (27.0-31.0); MEAN CORPUSCULAR HGB CONC 33.7 g/dL (32.0-36.0); MEAN CORPUSCULAR VOLUME 91.2 fL (80.0-94.0); MEAN PLATELET VOLUME 9.4 fL (7.4-11.4); MONOCYTES # (AUTO) 0.6 10^3/uL (0.0-1.0); MONOCYTES % (AUTO) 4.3 %; NEUTROPHILS # (AUTO) 11.3 10^3/uL (1.5-6.6); NEUTROPHILS % (AUTO) 86.1 %; PLT - PLATELET COUNT 244 10^3/uL (130-450); RED BLOOD COUNT 4.43 10^6/uL (4.70-6.10); RED CELL DISTRIBUTION WIDTH 11.9 % (12.0-15.0); WHITE BLOOD COUNT 13.2 x10^3/uL (4.8-10.8)
[2022-02-24] MEDS ORDERED: SULFAMETH/TRIMETH DS 800/160 MG TABLET PO STA (23:15)
--- NOTE | 2022-02-24 23:17 | ED Physician Documentation ---
History of Present Illness - Stated complaint Stated Complaint: LETHARGIC - Chief complaint Chief Complaint: General - History obtained from History obtained from: Patient, Family, EMS - Additonal information Additional information: The patient is brought to the emergency department by EMS for chief complaint of lethargy and chills. The patient also had a temperature of around 100 at home per . The patient has seemed "lethargic", which clarifies to me and less energetic, over the last several days. The patient has a history of advanced multiple sclerosis, and is chronically bedbound. The patient himself states that he always feels tired, but has felt more tired than usual over the last few days. He states he had episodes of shaking chills earlier today but that passed on its own. Medics state that while the got a temperature of just over 100 just prior to their arrival, they had a temperature of 98 in route. The patient denies any abdominal pain or nausea. He denies any cough or shortness of breath. No other complaints at this time. He has chronic back pain which is at baseline. Review of Systems Ten Systems: 10 systems reviewed and negative Constitutional: reports: Fever, Chills, Fatigue Eyes: reports: Reviewed and negative Ears: reports: Reviewed and negative Nose: reports: Reviewed and negative Throat: reports: Reviewed and negative Cardiac: reports: Reviewed and negative Respiratory: reports: Reviewed and negative GI: reports: Reviewed and negative : reports: Reviewed and negative Skin: reports: Reviewed and negative Musculoskeletal: reports: Reviewed and negative Neurologic: reports: Reviewed and negative Psychiatric: reports: Reviewed and negative Endocrine: reports: Reviewed and negative Immunocompromised: reports: Reviewed and negative PD PAST MEDICAL HISTORY - Past Medical History Past Medical History: Yes Cardiovascular: None Respiratory: None Neuro: Multiple sclerosis Endocrine/Autoimmune: Type 2 diabetes GI: Ulcers : Incontinence, Indwelling catheter HEENT: None Psych: None Musculoskeletal: Other Derm: None Other Past Medical History: MS - Past Surgical History Past Surgical History: Yes General: Other Ortho: Shoulder arthroplasty, Other - Present Medications Home Medications: Ambulatory Orders Medication Instructions Recorded Confirmed Cyclobenzaprine HCl 10 mg PO TID PRN 10/11/17 03/24/19 Gabapentin 600 mg PO TID 10/11/17 03/24/19 Metformin HCl 1,000 mg PO BIDWM 01/05/19 03/24/19 lisinopriL [Lisinopril] 5 mg PO DAILY 01/05/19 03/24/19 Amox/Clav 875/125 [Augmentin] 1 each PO Q12H 20 Days #40 tablet 03/26/19 Saccharomyces Boulardii [Florastor] 250 mg PO BID #60 capsule 03/26/19 Sulfamethox/Trimeth 800/160 1 each PO BID #14 tablet 02/24/22 [Bactrim Ds 800/160] - Allergies Allergies/Adverse Reactions: Allergies Allergy/AdvReac Type Severity Reaction Status Date / Time No Known Drug Allergies Allergy Verified 02/24/22 22:05 - Social History Does the pt smoke?: No Smoking Status: Never smoker Does the pt drink ETOH?: Yes Does the pt have substance abuse?: No - Immunizations Immunizations are current?: Yes - POLST Patient has POLST: No POLST Status: Full Code PD ED PE NORMAL - Vitals Vital signs reviewed: Yes - General General: No acute distress, Well developed/nourished, Other (Alert and appropriate) - HEENT HEENT: Atraumatic, PERRL, EOMI, Moist mucous membranes - Neck Neck: Supple, no meningeal sign - Cardiac Cardiac: RRR, No murmur, Strong equal pulses - Respiratory Respiratory: No respiratory distress, Clear bilaterally - Abdomen Abdomen: Soft, Non tender, Non distended - Derm Derm: Normal color, Warm and dry, No rash - Extremities Extremities: No deformity, No edema - Neuro Neuro: Alert and oriented X 3, Normal speech, Other (The patient generally has low tone and whole body weakness, but moves all 4 extremities.) - Psych Psych: Normal mood, Normal affect Results - Vitals Vitals: Vital Signs - 24 hr 02/24/22 22:02 Temperature 37.2 C Heart Rate 102 H Respiratory 18 Rate Blood Pressure 129/81 H O2 Saturation 95 Oxygen O2 Source Room air - Labs Labs: Laboratory Tests 02/24/22 02/24/22 02/24/22 22:24 22:45 22:45 WBC 13.2 H RBC 4.43 L Hgb 13.6 L Hct 40.4 L MCV 91.2 MCH 30.7 MCHC 33.7 RDW 11.9 L Plt Count 244 MPV 9.4 Neut # (Auto) 11.3 H Lymph # (Auto) 1.1 L [place] # (Auto) 0.6 Eos # (Auto) 0.1 Baso # (Auto) 0.0 Absolute Nucleated RBC 0.00 Nucleated RBC % 0.0 Sodium 141 Potassium 3.5 Chloride 104 Carbon Dioxide 25 Anion Gap 12.0 BUN 21 H Creatinine 0.7 Estimated GFR (MDRD) 112 Glucose 106 H Calcium 9.0 Total Bilirubin 0.6 AST 18 ALT 22 Alkaline Phosphatase 99 Total Protein 6.4 L Albumin 3.6 Globulin 2.8 Albumin/Globulin Ratio 1.3 Lipase 29 Urine Color YELLOW Urine Clarity HAZY Urine pH 6.5 Ur Specific [place] 1.025 Urine Protein TRACE Urine Glucose (UA) NEGATIVE Urine Ketones 15 H Urine Occult Blood TRACE-INTA Urine Nitrite POSITIVE H Urine Bilirubin NEGATIVE Urine Urobilinogen 0.2 (NORMAL) Ur Leukocyte Esterase SMALL H Urine RBC 6-10 H Urine WBC >25 H Urine WBC Clumps PRESENT Ur Squamous Epith Cells NONE SEEN Urine Crystals 0-2 Calcium Oxalate Amorphous Sediment Rare Urine Bacteria Many H Ur Microscopic Review INDICATED Urine Culture Comments INDICATED PD MEDICAL DECISION MAKING - ED course Complexity details: reviewed old records, reviewed results, re-evaluated patient, considered differential, d/w patient, d/w family ED course: The patient was given IV fluids and worked up with labs and UA. Alysis was positive, and although the patient is chronically catheterized, I did feel that with the low-grade fever, the sense of chills, and the fatigue, he should be treated with antibiotics. The last time the patient had had a urinary tract infection was 3 years ago, and at that time, his culture and sensitivity showed sensitivity to all antibiotics. He was started on Bactrim. We have discussed home management of the symptoms, as well as the usual indications for return. Departure - Departure Disposition: 01 Home, Self Care Clinical Impression: UTI (urinary tract infection) Qualifiers: Urinary tract infection type: acute cystitis Hematuria presence: without hematuria Qualified Code(s): N30.00 - Acute cystitis without hematuria Condition: Stable Instructions: ED UTI Cystitis Male Prescriptions: Sulfamethox/Trimeth 800/160 [Bactrim Ds 800/160] 1 each PO BID #14 tablet Comments: The laboratory studies look fairly good overall, but the urinalysis does show signs of infection. This can sometimes Be a chronic finding with chronically catheterize patients, but since you have chills and fatigue, typical of previous urinary tract infections for you, we will start you on antibiotics. The last urine culture we have on record here showed bacteria that were sensitive to all of the usual antibiotics, so we will place you on one of the first choices for treatment of urinary tract infection. Please drink plenty of fluids and take all the antibiotics until the course is complete.
[2022-02-24 23:27] LABS: ALBUMIN 3.6 g/dL (3.2-5.5); ALBUMIN/GLOBULIN RATIO 1.3 (1.0-2.2); BILIRUBIN,TOTAL 0.6 mg/dL (0.2-1.0); CREATININE 0.7 mg/dL (0.6-1.2); POTASSIUM 3.5 mmol/L (3.5-5.0); TOTAL PROTEIN 6.4 g/dL (6.7-8.2)
== END 2022-02-25 00:02 | disposition home or self-care (01) ==
LOC: EDUNIT# → ED 21:55
DX: N30.00 Acute cystitis without hematuria (principal); G35 Multiple sclerosis; E11.9 Type 2 diabetes mellitus without complications; Z79.84 Long term (current) use of oral hypoglycemic drugs
CPT/HCPCS: 36415; 80053; 81001; 83690; 85025; 87086; 99282; 99283; A9270; 81003; 87077; 87181

== ENCOUNTER 2022-04-01 10:10 | Outpatient (CLI) | payer MEDICARE, OTHER ==
[2022-04-01 14:57] LABS: CHOL/HDL RATIO 7.8 (<5.0); CHOLESTEROL 251 mg/dL; HDL CHOLESTEROL 32 mg/dL; LDL CHOLESTEROL,CALCULATED 148 mg/dL; LDL/HDL RATIO 4.6 (<3.6); TRIGLYCERIDES 354 mg/dL; VLDL CHOLESTEROL 71 mg/dL
[2022-04-01 18:32] LABS: ESTIMATED AVERAGE GLUCOSE 108 mg/dL (70-100); HEMOGLOBIN A1c% 5.4 % (4.27-6.07)
== END 2022-04-01 10:11 | disposition home or self-care (01) ==
LOC: LAB.S 10:10
PROVIDERS: ATTEND Internal Medicine
DX: E11.9 Type 2 diabetes mellitus without complications (principal); E78.5 Hyperlipidemia, unspecified
CPT/HCPCS: 36415; 80061; 83036; 83721

== ENCOUNTER 2022-07-03 14:04 | Outpatient (CLI) | payer MEDICARE, OTHER ==
[2022-07-03 15:10] VITALS: BP 114/74
--- NOTE | 2022-07-03 15:10 | SLEEP CARE CONSULTATION ---
Information from patient questionnaire entered by Ashley Cui. I have reviewed and concur with the information entered by Ashley Cui. This document represents the service I personally performed and the decisions made by me, Lauryn Holcomb ARNP. History of Present Illness Service Date and Time: 07/03/2022 1404 Reason for Visit: New patient Accompanied by: Spouse (Gricel) Chief Complaint: reports: Unrefreshed sleep, Snoring, Observed pauses in b reathing, Fatigue Date of Onset: 1+ year Usual bedtime: 10-11pm Time it takes to fall asleep: 30 minutes Snores at night: Yes Observed to quit breathing while asleep: Yes Sleeps alone due to snoring: No Number of times waking at night: 1-2 Reasons for waking at night: reports: Snoring, Other (UNKNOWN REASON, JUST WAKES UP ). denies: Choking, Gasping for air Toss, Turn, or Twitch while sleeping: Yes (twitches in sleep occasionally) Recalls having dreams: Yes Usually gets out of bed at: 830-930 Feels refreshed in the morning: No Morning headache: No Sleepy or fatigued during the day: Yes Ever fallen asleep while driving: No Takes day naps: Yes (daily, 30-60 minutes) Dreams during day naps: No Prior sleep studies: No Additional HPI information: I had the pleasure of seeing MARVIN MARTIN today regarding the possibility of him having a sleep disorder. His current complaints are unrefreshed sleep, snoring, observed pauses in breathing and fatigue. 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 Patient is and lives in [place]. Have you smoked in the past 12 months: No Alcohol use: Yes Alcohol amount and frequency: 1-2 OZ PER YEAR Caffeine use: Yes Caffeine amount and frequency: 1 CUP DAILY Family History Family history of sleep disordered breathing: Yes Family Hx Sleep Apnea: Father: Snoring Allergies and Home Medications Drug allergies reviewed: Yes (NKDA) Home medication list reviewed: Yes Allergy and home medication list: Allergies No Known Drug Allergies Allergy (Verified 02/24/22 22:05) Medications: Lisinopril 5 mg daily Gabapentin 300 mg TID Baclofen 10 mg TID for leg cramps Review of Systems Weight gain over past 5 years: 8-10 Cardiovascular: reports: high blood pressure, have to sleep sitting up Respiratory: reports: sputum production, chronic cough Urinary: reports: incontinence, other (HAS SUPRAPUBIC CATHETER) Neurological: reports: headaches, disorientation Psychiatric: reports: depression Ear/Nose/Throat: reports: nasal congestion, tonsillectomy, other (RUNNY NOSE) Endocrine: reports: sluggishness Musculoskeletal: reports: muscle pain or cramping, mobility problems Physical Exam Vital signs obtained and entered by: ZULEYMA HOUGH Blood Pressure: 114/74 (LEFT ARM ) Cuff size: regular Heart Rate: 77 O2 Saturation: 96 Height: 5 ft 11 in Weight: 190 lb (pt reported) Body Mass Index: 26.4 BMI Classification: Overweight Neck circumference: 17 (INCHES ) Mouth and throat: narrow oropharynx Soft palate: long Hard palate: normal Uvula: normal Uvula visualization: 25% Mallampati Class III Tongue: enlarged in size with teeth mccormick on lateral edges Tonsils: absent bilaterally Neck: normal w/o lymphadenopathy or thyromegaly Heart: regular rate and rhythm Lungs: clear bilaterally Impression and Plan 1. Suspected Obstructive Sleep Apnea-Hypopnea Syndrome, as suggested by a history of loud and irregular snoring, observed cessation of breath while asleep, unrefreshed sleep, cognitive impairment, and excessive daytime sleepiness. Narrow oropharynx and obesity are common predisposing factors for obstructive sleep apnea-hypopnea syndrome. I recommend proceeding to polysomnography to confirm the diagnosis and to assess severity. If the patient has significant sleep disordered breathing, a manual CPAP titration study will also be performed to find the optimal treatment pressure. I informed the patient of what the sleep studies involve and after some discussion, obtained agreement to proceed. The pathophysiology of obstructive sleep apnea-hypopnea syndrome was discussed with the patient and health risks of cardiovascular and cerebrovascular disease if not treated. Patient has MS and is wheel chair bound. His is his caregiver. He has to have help for transfers to chair, bed or commode. He has a suprapubic catheter in place. His and he would like to have the sleep study at home. He has a hospital bed and everything his caregiver needs to take care of him. He has Medicare who require a PSG in the lab setting for his first sleep study. It was explained that if he wants to do the HST and is not diagnosed with sleep apnea they would be responsible for the cost of the sleep study. Because they want to know for sure about cost to them, they are not going to schedule a study today. They will contact their insurance and get back with us on scheduling his sleep study. * Schedule polysomnography/HST once we hear back from patient. * Avoid alcohol, sedative and muscle relaxant around bedtime. * Attempt to lose weight. * Review instructions provided by trained office staff on how to prepare for the sleep study. * Return for follow-up after sleep study completed. Counseling Topics: Weight loss health impact Visit Type: In Office Other Participants: Spouse/Significant Other (Gricel) Time Spent with Patient (minutes): 37 Provider Statement: I spent 100% of the Face to Face Visit with the patient with greater than 50% spent counseling the patient and coordination of care.
== END 2022-07-03 14:05 | disposition home or self-care (01) ==
LOC: SC 14:04
PROVIDERS: ATTEND Nurse Practitioner Family
DX: G47.10 Hypersomnia, unspecified (principal); R53.83 Other fatigue; R06.83 Snoring; G47.8 Other sleep disorders; R06.81 Apnea, not elsewhere classified; I10 Essential (primary) hypertension; E66.3 Overweight; Z68.26 Body mass index [BMI] 26.0-26.9, adult; Z99.3 Dependence on wheelchair; G35 Multiple sclerosis
CPT/HCPCS: 99203; G0463; 99212

== ENCOUNTER 2022-08-25 11:42 | Outpatient (CLI) | payer MEDICARE, OTHER | END 2022-08-25 11:43 | disposition critical access hospital (66) | LOC: EMS 11:42 | DX: R53.1 Weakness (principal); R63.8 Other symptoms and signs concerning food and fluid intake; R39.89 Other symptoms and signs involving the genitourinary system | CPT/HCPCS: A0425; A0429 ==

== ENCOUNTER 2022-08-25 12:01 | Emergency (ER) | payer MEDICARE, OTHER ==
[2022-08-25] MEDS ORDERED: SODIUM CHLORIDE 0.9% 1,000 ML IV STA ×2 (12:45→12:46)
--- NOTE | 2022-08-25 13:07 | XRAY Report ---
PROCEDURE: Chest 1 View X-Ray INDICATIONS: chest pain TECHNIQUE: One view of the chest was acquired. COMPARISON: None. FINDINGS: Surgical changes and devices: None. Lungs and pleura: No pleural effusions or pneumothorax. Lungs are clear. Mediastinum: Mediastinal contours appear normal. Heart size is normal. Bones and chest wall: No suspicious bony lesions. Overlying soft tissues appear unremarkable. IMPRESSION: No acute cardiopulmonary findings Reviewed by: Rishi Benson MD on 08/25/2022 12:06 PM [facility] Approved by: Rishi Benson MD on 08/25/2022 12:06 PM [facility] Station ID: [id number]
[2022-08-25 13:11] LABS: BASOPHILS % (AUTO) 0.2 %; EOSINOPHILS % (AUTO) 0.2 %; HCT - HEMATOCRIT 43.3 % (42.0-52.0); HGB - HEMOGLOBIN 13.9 g/dL (14.0-18.0); LYMPHOCYTES # (AUTO) 1.9 10^3/uL (1.5-3.5); LYMPHOCYTES % (AUTO) 9.4 %; MEAN CORPUSCULAR HGB CONC 32.1 g/dL (32.0-36.0); MEAN CORPUSCULAR VOLUME 90.4 fL (80.0-94.0); MEAN PLATELET VOLUME 9.4 fL (7.4-11.4); MONOCYTES # (AUTO) 1.4 10^3/uL (0.0-1.0); NEUTROPHILS # (AUTO) 16.4 10^3/uL (1.5-6.6); NEUTROPHILS % (AUTO) 82.8 %; PLT - PLATELET COUNT 215 10^3/uL (130-450); RED BLOOD COUNT 4.79 10^6/uL (4.70-6.10); RED CELL DISTRIBUTION WIDTH 12.5 % (12.0-15.0); WHITE BLOOD COUNT 19.8 x10^3/uL (4.8-10.8)
[2022-08-25 13:18] LABS: BILIRUBIN,URINE NEGATIVE (NEGATIVE); GLUCOSE, URINE (UA) NEGATIVE (NEGATIVE); KETONES,URINE (UA) 15 mg/dL (NEGATIVE); LEUKOCYTE ESTERASE, URINE SMALL (NEGATIVE); NITRITE,URINE NEGATIVE (NEGATIVE); OCCULT BLOOD,URINE TRACE-INTA (NEGATIVE); PROTEIN,URINE 30 mg/dL (NEGATIVE); UROBILINOGEN,URINE 0.2 (NORMAL) E.U./dL (NORMAL)
[2022-08-25 13:25] LABS: ALBUMIN 3.9 g/dL (3.2-5.5); ALBUMIN/GLOBULIN RATIO 1.3 (1.0-2.2); BILIRUBIN,TOTAL 0.8 mg/dL (0.2-1.0); CALCIUM 8.9 mg/dL (8.5-10.3); CREATININE 0.9 mg/dL (0.6-1.2); MAGNESIUM 2.2 mg/dL (1.7-2.8); POTASSIUM 4.1 mmol/L (3.5-5.0)
[2022-08-25 13:33] LABS: CLARITY,URINE HAZY (CLEAR)
[2022-08-25 13:53] LABS: BACTERIA,URINE Few /HPF (None Seen); RBC,URINE 0-5 /HPF (0-5); SQUAMOUS EPITHELIAL CELL,UR NONE SEEN (<= Few); WBC,URINE >25 /HPF (0-3)
[2022-08-25 14:09] LABS: B. PARAPERTUSSIS- RESP PCR PAN NOT DETECTED; B. PERTUSSIS- RESP PCR PANEL NOT DETECTED; C. PNEUMONIAE- RESP PCR PANEL NOT DETECTED; CORONAVIRUS 229E-RESP PCR NOT DETECTED; CORONAVIRUS HKU1-RESP PCR NOT DETECTED; CORONAVIRUS NL63-RESP PCR NOT DETECTED; CORONAVIRUS OC43-RESP PCR NOT DETECTED; HUMAN METAPNEUMOVIRUS NOT DETECTED; INFLUENZA A- RESP PCR PANEL NOT DETECTED; INFLUENZA B - RESP PCR PANEL NOT DETECTED; M. PNEUMONIAE- RESP PCR PANEL NOT DETECTED; PARAINFLUENZA VIRUS 1 NOT DETECTED; PARAINFLUENZA VIRUS 2 NOT DETECTED; PARAINFLUENZA VIRUS 3 NOT DETECTED; PARAINFLUENZA VIRUS 4 NOT DETECTED; RHINOVIRUS/ENTEROVIRUS NOT DETECTED; RSV- RESP PCR PANEL NOT DETECTED; SARS-CoV-2 -RESP PCR PANEL NOT DETECTED
[2022-08-25] MEDS ORDERED: cefTRIAXone 1 GM VIAL IVP STA (14:50)
--- NOTE | 2022-08-25 15:34 | CT Report ---
PROCEDURE: CT brain without contrast INDICATIONS: altered mentation; less alert for few days TECHNIQUE: Noncontrast 4.5 mm thick angled axial sections acquired from the foramen magnum to the vertex. For r adiation dose reduction, the following was used: automated exposure control, adjustment of mA and/or kV according to patient size. COMPARISON: None. FINDINGS: Image quality: Excellent. CSF spaces: Basal cisterns are patent. No extra-axial fluid collections. Ventricles are normal in size and shape. Brain: No midline shift. No intracranial masses or hemorrhage. Jo-white matter interface is norm al. Moderate atrophy and multifocal white matter chronic ischemic change noted. Atherosclerotic vasc ular calcification noted in the cavernous segments of both internal carotid arteries as well as the i ntradural vertebral arteries. Skull and face: Calvarium and visualized facial bones are intact, without suspicious lesions. Sinuses: Visualized sinuses and mastoids are clear. IMPRESSION: Atrophy and chronic ischemic change without acute hemorrhage or mass effect Reviewed by: Rishi Benson MD on 08/25/2022 2:33 PM [facility] Approved by: Rishi Benson MD on 08/25/2022 2:33 PM [facility] Station ID: [id number]
--- NOTE | 2022-08-25 15:44 | ED Physician Documentation ---
PD HPI ALTERED MENTAL STATUS - Stated complaint Stated Complaint: GEN WEAKNESS - Chief complaint Chief Complaint: General - History obtained from History obtained from: Patient, Family (spouse) - History of Present Illness Timing - onset: How many days ago (2-3 days of increased weakness over baseline, less po intake and decreased/darker urination via suprapubic cath. no fevers. no URI symptoms noted. Pt more tired and wanting to sleep.) Timing - duration: Days Timing - details: Gradual onset, Still present Associated symptoms: No: Fever, Headache, Dyspnea, Cough Contributing factors: No: Diabetic, Recent med change, Recent illness Basline status: Alert and oriented X 3, Wheelchair. No: Ambulatory Similar symptoms before: Diagnosis (has had similar weakness with infections/sepsis in the past. last admitted 2 months ago with similar with uti/ sepsis.) Recently seen: Not recently seen Review of Systems Constitutional: denies: Fever Nose: denies: Rhinorrhea / runny nose, Congestion Throat: denies: Sore throat Cardiac: denies: Chest pain / pressure Respiratory: denies: Cough GI: denies: Abdominal Pain, Vomiting, Diarrhea : denies: Dysuria (has suprapubic catheter without redness/discharge/cloudiness) Skin: denies: Rash, Lesions PD PAST MEDICAL HISTORY - Past Medical History Past Medical History: Yes Cardiovascular: None Respiratory: None Neuro: Peripheral neuropathy, Multiple sclerosis Endocrine/Autoimmune: Type 2 diabetes GI: Ulcers : Incontinence, Indwelling catheter HEENT: None Psych: None Musculoskeletal: Other Derm: None - Past Surgical History Past Surgical History: Yes General: Other Ortho: Shoulder arthroplasty, Other - Present Medications Home Medications: Ambulatory Orders Medication Instructions Recorded Confirmed Gabapentin 300 mg PO TID 10/11/17 08/25/22 lisinopriL [Lisinopril] 5 mg PO DAILY 01/05/19 08/25/22 Baclofen [Lioresal] 10 mg PO TID PRN 08/25/22 08/25/22 Riboflavin (Vitamin B2) 400 mg PO DAILY 08/25/22 08/25/22 [Riboflavin] cephALEXin [Keflex] 500 mg PO TID #20 cap 08/25/22 - Allergies Allergies/Adverse Reactions: Allergies Allergy/AdvReac Type Severity Reaction Status Date / Time No Known Drug Allergies Allergy Verified 08/25/22 12:15 - Social History Does the pt smoke?: No Smoking Status: Never smoker Does the pt drink ETOH?: No Does the pt have substance abuse?: No - Immunizations Immunizations are current?: Yes - POLST Patient has POLST: No POLST Status: Full Code PD ED PE NORMAL - Vitals Vital signs reviewed: Yes - General General: Well developed/nourished, Other (sleepy but answers questions to verbal stimulation. ) - HEENT HEENT: Atraumatic. No: Moist mucous membranes - Neck Neck: Supple, no meningeal sign, No adenopathy - Cardiac Cardiac: RRR, No murmur - Respiratory Respiratory: Clear bilaterally - Abdomen Abdomen: Normal bowel sounds, Soft, Non tender, Non distended, No organomegaly, Other (suiprapubic catheter site without redness nor drainage around it. Abd soft and not tender. urine in bag is darker yellow but clear. ) - Back Back: No CVA TTP - Derm Derm: Warm and dry. No: Normal color (mild pallor) - Neuro Neuro: Alert and oriented X 3, Other (general weakness c/w his ms, though more profound than usual. no focal weakness noted. ) Results - Vitals Vitals: Vital Signs - 24 hr 08/25/22 08/25/22 08/25/22 12:15 12:34 14:00 Temperature 37.2 C Heart Rate 99 99 102 H Respiratory 22 22 18 Rate Blood Pressure 118/75 132/68 H 122/75 O2 Saturation 99 99 99 08/25/22 16:03 Temperature 37.4 C Heart Rate 93 Respiratory 14 Rate Blood Pressure 122/71 O2 Saturation 100 Oxygen O2 Source Room air - Labs Labs: Laboratory Tests 08/25/22 08/25/22 08/25/22 13:04 13:04 13:04 WBC 19.8 H RBC 4.79 Hgb 13.9 L Hct 43.3 MCV 90.4 MCH 29.0 MCHC 32.1 RDW 12.5 Plt Count 215 MPV 9.4 Neut # (Auto) 16.4 H Lymph # (Auto) 1.9 [place] # (Auto) 1.4 H Eos # (Auto) 0.0 Baso # (Auto) 0.0 Absolute Nucleated RBC 0.00 Nucleated RBC % 0.0 Sodium 141 Potassium 4.1 Chloride 102 Carbon Dioxide 28 Anion Gap 11.0 BUN 15 Creatinine 0.9 Estimated GFR (MDRD) 84 L Glucose 105 H Lactic Acid 1.3 Calcium 8.9 Magnesium 2.2 Total Bilirubin 0.8 AST 22 ALT 23 Alkaline Phosphatase 98 Total Protein 7.0 Albumin 3.9 Globulin 3.1 Albumin/Globulin Ratio 1.3 Lipase 22 Urine Color Urine Clarity Urine pH Ur Specific [place] Urine Protein Urine Glucose (UA) Urine Ketones Urine Occult Blood Urine Nitrite Urine Bilirubin Urine Urobilinogen Ur Leukocyte Esterase Urine RBC Urine WBC Ur Squamous Epith Cells Urine Bacteria Ur Microscopic Review Urine Culture Comments Nasal Adenovirus (PCR) Nasal B. parapertussis DNA (PCR) Nasal Coronavir 229E PCR Nasal Coronavir HKU1 PCR Nasal Coronavir NL63 PCR Nasal Coronavir OC43 PCR Nasal Enterovir/Rhinovir PCR Nasal Influenza B PCR Nasal Influenza A PCR Nasal Parainfluen 1 PCR Nasal Parainfluen 2 PCR Nasal Parainfluen 3 PCR Nasal Parainfluen 4 PCR Nasal RSV (PCR) Nasal B.pertussis DNA PCR Nasal C.pneumoniae (PCR) Jeff Human Metapneumo PCR Nasal M.pneumoniae (PCR) Nasal SARS-CoV-2 (PCR) 08/25/22 08/25/22 13:05 13:05 WBC RBC Hgb Hct MCV MCH MCHC RDW Plt Count MPV Neut # (Auto) Lymph # (Auto) [place] # (Auto) Eos # (Auto) Baso # (Auto) Absolute Nucleated RBC Nucleated RBC % Sodium Potassium Chloride Carbon Dioxide Anion Gap BUN Creatinine Estimated GFR (MDRD) Glucose Lactic Acid Calcium Magnesium Total Bilirubin AST ALT Alkaline Phosphatase Total Protein Albumin Globulin Albumin/Globulin Ratio Lipase Urine Color YELLOW Urine Clarity HAZY Urine pH 6.0 Ur Specific [place] >=1.030 H Urine Protein 30 H Urine Glucose (UA) NEGATIVE Urine Ketones 15 H Urine Occult Blood TRACE-INTA Urine Nitrite NEGATIVE Urine Bilirubin NEGATIVE Urine Urobilinogen 0.2 (NORMAL) Ur Leukocyte Esterase SMALL H Urine RBC 0-5 Urine WBC >25 H Ur Squamous Epith Cells NONE SEEN Urine Bacteria Few Ur Microscopic Review INDICATED Urine Culture Comments INDICATED Nasal Adenovirus (PCR) NOT DETECTED Nasal B. parapertussis DNA (PCR) NOT DETECTED Nasal Coronavir 229E PCR NOT DETECTED Nasal Coronavir HKU1 PCR NOT DETECTED Nasal Coronavir NL63 PCR NOT DETECTED Nasal Coronavir OC43 PCR NOT DETECTED Nasal Enterovir/Rhinovir PCR NOT DETECTED Nasal Influenza B PCR NOT DETECTED Nasal Influenza A PCR NOT DETECTED Nasal Parainfluen 1 PCR NOT DETECTED Nasal Parainfluen 2 PCR NOT DETECTED Nasal Parainfluen 3 PCR NOT DETECTED Nasal Parainfluen 4 PCR NOT DETECTED Nasal RSV (PCR) NOT DETECTED Nasal B.pertussis DNA PCR NOT DETECTED Nasal C.pneumoniae (PCR) NOT DETECTED Jeff Human Metapneumo PCR NOT DETECTED Nasal M.pneumoniae (PCR) NOT DETECTED Nasal SARS-CoV-2 (PCR) NOT DETECTED - Rads (name of study) chest xray Radiology: Prelim report reviewed (no cardiopulonary findings.), See rad report head ct Radiology: Prelim report reviewed (age related changes. no acute abnormality.), See rad report PD MEDICAL DECISION MAKING - ED course Complexity details: reviewed results, re-evaluated patient (seems mildly/moderately improved alertness and color. ), considered differential (will eval for lytes, signs/sources of infection, sugar. and to give iv fluids for apparent underhydration. ), d/w patient, d/w family ( - she says the general weakness of the past 3 days 'is just not him'. and not typically tired/sleepy like this. ) Departure - Departure Disposition: 01 Home, Self Care Clinical Impression: Generalized weakness, Pyuria, Multiple sclerosis Condition: Stable Record reviewed to determine appropriate education?: Yes Follow-Up: Tuan Edwards MD [Primary Care Provider] - Prescriptions: cephALEXin [Keflex] 500 mg PO TID #20 cap Comments: Your CT scan of the head does not show any acute abnormalities. The urine test shows some white cells and a few bacteria. This would be suggestive of an infection and presumably will correlate with some of your general weakness symptoms. The culture will result in a couple of days to see if it is a true infection. Meanwhile we will treat with cephalexin 3 times daily for the next week. Continue other usual medications. Your white count is slightly elevated corresponding with an infection cause. Your lactate is normal as is your vital signs so no signs of sepsis at this time. Other blood tests of electrolytes, blood sugar, kidney function are normal. Your respiratory PCR panel is negative for the more major viruses. At this point I would continue usual medications. Encourage fluids. Tylenol every 4-6 hours if needed for fevers or pains. Cephalexin 3 times daily for a week. Follow-up with your primary care in the next couple of days, call them to update how you are feeling. Return if not improving well over the next couple of days and sooner if worse. I sent your prescription to your preferred [facility] pharmacy. Discharge Date/Time: 08/25/22 17:01
[2022-08-25 16:06] VITALS: BP 122/71
== END 2022-08-25 17:01 | disposition home or self-care (01) ==
LOC: EDUNIT# → ED 12:01
DX: R82.81 Pyuria (principal); G35 Multiple sclerosis; Z20.822 Contact with and (suspected) exposure to COVID-19
CPT/HCPCS: 36415; 80053; 81001; 81003; 83605; 83690; 83735; 85025; 87077; 87086; 87181; 87633; 96374; 99284

== ENCOUNTER → 2022-09-05 | Outpatient (CLI) | payer MEDICARE, OTHER | END | disposition EMS.NT | LOC: EMS 15:40 | DX: R53.1 Weakness (principal) ==